=== PATIENT | male | born 1945 | race Caucasian/White ===

== ENCOUNTER 2016-06-17 17:41 | Inpatient (IN) | payer MEDICARE ==
[~2016-06-17] VITALS: Ht 175.3 cm; Wt 96.9 kg
[2016-06-17] MEDS ORDERED: ADVAIR 100/501 DISK INH (18:49)
[2016-06-17] MEDS ORDERED: ALDACTONE100 MG PO (18:49)
[2016-06-17 19:35] LABS: BASOPHILS 0.2 % (0.0-2.0); EOSINOPHILS 0.3 % (0-7); HEMATOCRIT 39.6 % (42.0-54.0); HEMOGLOBIN 12.6 g/dL (13.5-17.5); IMMATURE GRANULOCYTES 0.2 % (0-5); LYMPHOCYTES 8.1 % (15-50); MCH 30.4 pg (26.0-34.0); MCHC 31.8 g/dL (31.0-37.0); MCV 95.4 fL (80.0-100.0); MEAN PLATELET VOLUME 11.3 fL (7.4-10.4); MONOCYTES 3.7 % (2-11); NEUTROPHILS 87.5 % (40-80); PLATELET COUNT 193 10x3/uL (130-400); RBC 4.15 10x6/uL (4.20-6.10); RDW 16.2 % (11.5-14.5); WBC 10.5 10x3/uL (4.8-10.8)
[2016-06-17 20:02] VITALS: BP 94/49
[2016-06-17 20:06] LABS: CALC OSMOLALITY 306 mosm/kg (275-300); CALCIUM 9.6 mg/dL (8.5-10.1); CARBON DIOXIDE 20.6 mmol/L (21.0-32.0); CHLORIDE - SERUM 104 mmol/L (98-107); CKMB 8.2 U/L (0.0-3.6); CREATINE KINASE 597 UL (21-232); GLUCOSE 114 mg/dL (74-106); PRO BNP 156 pg/mL (0-125); SODIUM 136 mmol/L (136-145); TROPONIN-I 0.026 ng/mL (0.000-0.060); UREA NITROGEN 109 mg/dL (7-18); eGFR NON AFRICAN AMERICAN 12 mL/min (90-120)
[2016-06-17 20:08] LABS: POTASSIUM - SERUM 8.5 mmol/L (3.5-5.1)
--- NOTE | 2016-06-17 21:00 | NUR ---
RIGHT HAND IV WITH 22 GA ANGIOCATH STARTED X2 STICKS. PT STEPH WELL. DRESSING ACCORDING TO POLICY. REG INSULIN 10 UNITS GIVEN ALONG WITH D50 ORDERED. AWAITING CALCIUM GLUC IVPB AND BICARB GTT TO ARRIVE FROM PHARMACY.
--- NOTE | 2016-06-17 21:15 | NUR ---
FENG CATH 16 FR 10 CC PLACED WITHOUT DIFFICULTY. DRAINS ADEQ AMOUNT CLEAR YELLOW URINE. STATLOCK ATTACHED TO RIGHT THIGH AND SECURED TO FENG.
[2016-06-17 21:30] VITALS: BP 73/46
--- NOTE | 2016-06-17 21:30 | NUR ---
PT RECIVED O2 VIA NC 3L O2 SAT 98% RR 26 LABORED STATES SOB, BP 78/47 HR 116 SINUS TACK WITH ELEVATED T WAVE. TEMP 97.5. 2129 CONSENTS RECIEVED FOR CVL PLACEMENT 2139 DR KNIGHT AND DR CESAR AT BEDSIDE CVL PLACEMENT ADM WITHOUT DIFFICULTY ORDER FOR DOUBLE DUONEB AND CA+ GLUCONATE TO BE ADM WILL ADM. 2149- FAMILY GIVEN UPDATE 2200 L AC 20 G ADM ON 1 ATTEMPT
--- NOTE | 2016-06-17 21:31 | NUR ---
CALLED REPORT TO ICU NURSE, PT TRANSFER TO BED 2312 VIA BED ACCOMPANIED BY MULTIPLE FAMILY MEMBERS. PT AND FAMILY UPDATED ON POC INTERVENTIONS COMPLETED. PT AND FAMILY VERBALIZED UNDERSTANDING.
[2016-06-17 22:00] VITALS: BP 98/52
[2016-06-17 22:30] VITALS: BP 98/54
[2016-06-17 23:00] VITALS: BP 93/50
--- NOTE | 2016-06-17 23:07 | NUR ---
DIALYSIS AT BEDSIDE
--- NOTE | 2016-06-17 23:34 | NUR ---
ASSESSMENT COMPLETEPER FLOW SHEET. REFER FOR COMPLETE FINDINGS. VSS RESTING AT THIS TIME. WILL CONTINUE TO MONITOR.
[2016-06-18] VITALS (34 sets, daily range): BP systolic 76–121; BP diastolic 40–69; Ht 175.3 cm; Wt 96.9 kg
--- NOTE | 2016-06-18 02:40 | NUR ---
DIALYSIS FINISHED. VSS. NO NEW CHANGES. GIVEN SANWHICH PER REQUEST. DENIES FURTHER NEEDS. WILL CONTINUE TO MONITOR.
--- NOTE | 2016-06-18 03:24 | NUR ---
REASSESSMENT COMPLETE PER FLOW SHEET. VSS. NO NEW CHANGESA T THIS TIME. WILL CONTINUE TO MONITOR.
[2016-06-18 03:26] LABS: BASOPHILS 0.1 % (0.0-2.0); EOSINOPHILS 0.8 % (0-7); HEMATOCRIT 34.5 % (42.0-54.0); HEMOGLOBIN 10.9 g/dL (13.5-17.5); IMMATURE GRANULOCYTES 0.2 % (0-5); LYMPHOCYTES 13.8 % (15-50); MCH 29.8 pg (26.0-34.0); MCHC 31.6 g/dL (31.0-37.0); MCV 94.3 fL (80.0-100.0); MEAN PLATELET VOLUME 11.6 fL (7.4-10.4); NEUTROPHILS 78.1 % (40-80); PLATELET COUNT 194 10x3/uL (130-400); RBC 3.66 10x6/uL (4.20-6.10); RDW 15.6 % (11.5-14.5); WBC 8.8 10x3/uL (4.8-10.8)
[2016-06-18 03:40] LABS: CALCIUM 8.9 mg/dL (8.5-10.1); MAGNESIUM - SERUM 1.6 mg/dL (1.8-2.4); PHOSPHOROUS 3.3 mg/dL (2.5-4.9)
[2016-06-18 03:47] LABS: ANION GAP 11.7 mmol/L (8-16); CARBON DIOXIDE 29.6 mmol/L (21.0-32.0); CREATININE - SERUM 2.5 mg/dL (0.6-1.3); POTASSIUM - SERUM 4.3 mmol/L (3.5-5.1)
--- NOTE | 2016-06-18 07:25 | HP ---
PATIENT: CONNIE MCCRAY MEDICAL RECORD: [id number] ACCOUNT: [id number] LOCATION:[id number] : 43 ADMISSION DATE: 06/17/16 HISTORY AND PHYSICAL EXAMINATION DATE OF ADMISSION: 06/17/2016 CHIEF COMPLAINT: Shortness of breath for the past 2 days, extreme weakness for the past 2 days and loss of appetite. HISTORY OF PRESENT ILLNESS: The patient is a 71-year-old gentleman who states that for the past week, he has become increasingly weak. The patient states he has had increasing shortness of breath with any exertion, he has had inability to stand. The patient presented to the office where he was found to be hypotensive as well as hypoxic, it was felt the patient warranted admission. PAST MEDICAL HISTORY: Significant that he has had asthma in the past, has COPD, has had hyperlipidemia, hypertension, has had dependent edema and has had BPH. PAST SURGICAL HISTORY: The patient has had right shoulder repair with joint replacement, left knee replacement and right inguinal hernia repair. FAMILY HISTORY: Significant for father who of myocardial infarction as well as COPD. SOCIAL HISTORY: The patient is educated through the 10th grade, currently unemployed. He is . 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 ALLERGIES: He has known drug allergies. MEDICATIONS: He has been on Advair Diskus 100 mcg/50 mcg 1 puff b.i.d., albuterol solution 0.08% q.4 hours p.r.n. shortness of breath, allopurinol 300 mg 1 p.o. daily for his gout, he has also been on Lasix 40 mg 1 p.o. b.i.d., lisinopril 20 mg once a day, meloxicam 7.5 mg once a day, omeprazole 20 mg once a day, Mirapex 0.25 p.o. at bedtime, pravastatin 40 mg once a day, spironolactone 100 mg once a day, Flomax 0.4 mg once a day, tramadol 50 mg q.6 hours p.r.n. pain and Ambien 5 mg p.o. at bedtime p.r.n. insomnia. REVIEW OF SYSTEMS: CONSTITUTIONAL: Denies any headaches, seizures, or syncope. The patient has reported increasing weakness. He denies any change in visual or auditory acuity. PULMONARY: He has reported increasing shortness of breath. He has had no cough. He has had no congestion. GASTROINTESTINAL: He has had no chronic nausea, vomiting, melena, or hematochezia. GENITOURINARY: No urgency, frequency, or dysuria. PHYSICAL EXAMINATION: GENERAL: The patient is wheelchair bound, he is unable to stand. Weight is unobtainable at present time VITAL SIGNS: Blood pressure was 68/30, his pulse 104, his O2 sat was 93% and respirations were 18. HEENT: His head is normocephalic, no lesions. Ears: TMs clear. Eyes: Pupils HISTORY AND PHYSICAL [id number] SHAZIA,CONNIE Leblanc are equal, round, reactive to light. His extraocular movements are intact. His nasal cavity, oral cavity and oropharynx clear. NECK: Supple. There is no adenopathy. HEART: Slightly tachycardic. LUNGS: He has decreased breath sounds in all cobb. ABDOMEN: Soft, bowel sounds positive. EXTREMITIES: Lower extremities have no edema. LABORATORY DATA: The patient had a urinalysis, which were unremarkable. He had a CBC with a white count of 10, his hemoglobin and hematocrit were normal. The patient had a chest x-ray showing some borderline cardiomegaly. ASSESSMENT: Shortness of breath, exacerbation of chronic obstructive pulmonary disease, as well as hypotension with history of hypertension, history of dependent edema and hypertension. PLAN: The patient is admitted. We will obtain an EKG as well as a repeat chest x-ray. We will have CPK, CK-MB and troponin. He will be given 500 cc normal saline bolus and start on normal saline at 100 cc an hour, have a CMP as well as CBC on arrival. Also, the patient will be given Lovenox 40 mg subcutaneous q.24 hours. We will continue to evaluate. TRANSINT:[id number] Voice Confirmation ID: [id number] DOCUMENT ID: [id number] BI CHRIS MD at 0725 CC: [id number] DICTATION DATE: 06/17/16 172 SLOT ATTENDANT: 06/17/16 210 ADM IN [id number] [place] [address]
--- NOTE | 2016-06-18 08:03 | OP ---
PATIENT NAME: CONNIE MCCRAY MEDICAL RECORD: [id number] :41 LOCATION:D.[facility] D.2312 ADMISSION DATE:06/17/16 SURGEON: BI CESAR MD DATE OF OPERATION: 06/17/2016 Surgical Procedure Note SURGEON: Bi Cesar MD PREOPERATIVE DIAGNOSES: 1. Life-threatening hyperkalemia. 2. Hypotension. 3. Acute renal failure. POSTOPERATIVE DIAGNOSIS: 1. Life-threatening hyperkalemia. 2. Hypotension. 3. Acute renal failure. PROCEDURE PERFORMED: Ultrasound-guided insertion of a right internal jugular Trialysis catheter. ANESTHESIA: Local. COMPLICATIONS: None. SPECIMENS: None. ESTIMATED BLOOD LOSS: 5 cc. Case was clean. OPERATIVE COURSE: After consent was obtained, the patient was placed in supine position into the ICU bed. The timeout was taken to confirm the correct patient and procedure. The right chest and neck were prepped and draped in typical sterile fashion. A shoulder roll was placed. The patient was placed in the Trendelenburg position. The local anesthetic was administered. The IJ was identified using the ultrasound. Under ultrasound guidance, the right IJ was cannulated, blood was aspirated. The guidewire was placed. The needle was removed. Skin incision was made with 11-blade scalpel. Dilators were then passed through the wire in a standard Seldinger fashion. The Trialysis catheter was then passed over the wire in a standard Seldinger fashion. Catheter was secured to skin with a 3-0 nylon suture and a sterile Tegaderm dressing. All 3 ports were aspirated and flushed. At the end of the case, all needle and instrument counts were correct. No complications occurred. Immediate postoperative x-ray was performed. TRANSINT:[id number] Voice Confirmation ID: [id number] DOCUMENT ID: [id number] OPERATIVE REPORT [id number] SHAZIABI KIM MD at 0803 CC: [id number] DICTATION DATE: 06/17/162209 GEMOLOGIST: 06/17/16 2356 [place] [address]
--- NOTE | 2016-06-18 08:03 | CN ---
PATIENT NAME:CONNIE MCCRAY MEDICAL RECORD: [id number] : 41 LOCATION:[id number] ADMIT DATE: 06/17/16 ACCOUNT: [id number] CONSULTING PHYSICIAN: BI CESAR MD REFERRING PHYSICIAN: BI CHRIS MD DATE OF CONSULTATION: 06/17/2016 Surgical Consultation SURGEON: Bi Cesar MD CHIEF COMPLAINT: Shortness of breath. HISTORY OF PRESENT ILLNESS: This is a 71-year-old gentleman, who states for the past week, has been increasingly weak, lethargic, short of breath with severe dyspnea. He was hypoxic and hypotensive when he saw his primary care physician this morning and was transferred as a direct admission to the hospital. He has subsequently been transferred to the ICU this evening with acute renal failure and life-threatening hyperkalemia. I was consulted for emergency placement of a dialysis catheter. PAST MEDICAL HISTORY: Asthma, COPD, hyperlipidemia, hypertension, dependent edema, and BPH. PAST SURGICAL HISTORY: Right shoulder repair, left knee replacement, and right inguinal hernia repair. FAMILY HISTORY: Significant for father who of myocardial infarction as well COPD. SOCIAL HISTORY: He is . He is unemployed. 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 Denies any history of alcohol. ALLERGIES: No known drug allergies. MEDICATIONS: Advair, albuterol, allopurinol, Lasix, lisinopril, meloxicam, omeprazole, Mirapex, pravastatin, spironolactone, Flomax, tramadol, and Ambien. REVIEW OF SYSTEMS: A 12-point review of system was obtained, pertinent positive and negative as per the HPI. PHYSICAL EXAMINATION: GENERAL: A morbidly obese male, in marked distress. EYES: Extraocular muscles intact. PSYCHIATRIC: He is alert and oriented times 3. EARS, NOSE, AND THROAT: Mucous membranes moist. Poor dentition. CARDIOVASCULAR: Irregular. No murmur. PULMONARY: Decreased breath sounds bilaterally. ABDOMEN: Soft, nontender, and nondistended. SKIN: Warm and dry. EXTREMITIES: He is neurovascularly intact. He has peripheral edema. NEUROLOGIC: He has a GCS of 15 with no focal deficits. LABORATORY DATA: Reviewed. Please see electronic medical record for full list of laboratory values. CONSULT REPORT [id number] CONNIE MCCRAY IMAGING: Chest x-ray from this evening shows atelectasis and pulmonary congestion. Images were personally reviewed. IMPRESSION: A 71-year-old male with shortness of breath, dyspnea on exertion, life-threatening hyperkalemia and acute renal failure. PLAN: Case was discussed with Dr. Yu. We will place an emergent Trialysis ____ per nephrology. Chest x-ray to confirm line placement. TRANSINT:[id number] Voice Confirmation ID: [id number] DOCUMENT ID: [id number] BI CESAR MD at 0803 CC: [id number] DICTATION DATE: 06/17/162207 MEDICAL CODING TECHNICIAN: 06/18/16 0017 ADM IN [facility] [address] [id number]
--- NOTE | 2016-06-18 09:16 | NUR ---
Is the patient Alert and Oriented? Yes 0 * How many steps to enter\exit or inside your home? 2 0 * PCP DR. CHRIS 0 * Pharmacy [facility] 0 * Preadmission Environment Home with Family 0 * ADLs Independent 0 * Equipment [employer]ane [employer] Rolling Walker 0 * Other Equipment PATIENT HAS O2 AT HOME HE STATES HE USES NEEDED. HE DOES NOT RECALL THE NAME OF THE PROVIDER HE SAY THEY ARE ON [address]. 0 * List name and contact numbers for known caregivers / representatives who currently or will assist patient after discharge: SPOUSE: DK (H) [phone] (C) [phone] 0 * Community resources currently utilized None 0 * Additional services required to return to the preadmission environment? No 0 * Can the patient safely return to the preadmission environment? Yes 0 * Has this patient been hospitalized within the prior 30 days at any hospital? PATIENT IS AWAKE AND ALERT. HE STATES HE LIVES AT HOME WITH HIS , DK. HE IS INDEPENDENT IN HIS ADL'S. PATIENT STATES DK WILL BE AVAILABLE TO DRIVE HIM HOME AT DISCHARGE. PATIENT PCP IS DR. CHRIS. HE GETS HIS MEDS FROM [facility]. HE HAS A WALKER AND CANE. PATIENT STATES HE USES O2 AT HOME NEEDED. HE DOES NOT RECALL THE NAME OF THE COMPANY THAT PROVIDES IT. HE SAID THEY ARE ON [address]. PATIENT HAD HOME HEALTH 4-5 YRS AGO BUT DOES NOT RECALL THE NAME OF THE AGENCY. THERE ARE 2 STEPS TO ENTER HIS HOME. NO NEEDS AT THIS TIME.
[2016-06-18 13:16] LABS: % SATURATION 28 % (15-55); IRON 77 ug/dl (35-150); TOTAL IRON BIND CAPACITY 275 ug/dl (260-445); UNSAT IRON BIND CAPACITY 198 ug/dl (150-375)
--- NOTE | 2016-06-18 13:59 | EC ---
PATIENT:CONNIE MCCRAY DATE OF SERVICE: 06/17/16 SEX: M MEDICAL RECORD: [id number] DATE OF : 41 LOCATION:[facility] D231 AGE OF PATIENT: 71 ADMISSION DATE: 06/17/16 REFERRING PHYSICIAN: INTERPRETING PHYSICIAN: LISANDRO GLORIA MD ECHOCARDIOGRAM REPORT ECHO CHARGES 4 ECHO COMPLETE CLINICAL DIAGNOSIS: SOB,WEAKNESS,HYPPOTENSION HX OF RENAL/HTN ECHOCARDIOGRAPHIC MEASUREMENTS (adult normal given) AC root (d.<3.7cm) 3.6 LV Septum d (<1.2 cm> 1.5 Valve Excursion 1.5 LV Septum (systole) 1.7 Left Atria (s.<4.0cm> 3.9 LVPW d(<1.2cm) 1.4 RV (d.<2.3cm) 4.3 LVPW (sytole) 1.6 LV diastole(<5.6CM) 6.3 MV E-F(>70mm/sec) LV systole 4.5 LVOT Diameter 1.8 MV exc.(>10mm) 1.4 Est.ejection fraction (50-75%) Pericardial Effusion N DOPPLER: LVIT A 135 E 74.0 LA RVSP 26 LVOT 106 AOP1/2T Asc. Ao 166 RVOT 110 RA PA 175 AV Gradient Peak 11.07 AV Mean 6.02 AV Area 1.8 MV Gradient Peak 10.10 MV Mean 3.06 MV Area COMMENTS: Smelter Charger: Oni RANDOLPH Routing Clerk:Cesar Gloria TAPE# PACS DATE OF SERVICE: 06/18/2016 Echocardiogram FINDINGS: 1. Left ventricular chamber size is upper limits of normal. Left ventricular systolic function is preserved. Overall ejection fraction 55% to 60%. 2. Left atrium is within normal limits at 3.9 cm. Right atrium and right ventricular chamber sizes are mildly dilated. 3. Valvular structures have normal structure and motion. ECHOCARDIOGRAM REPORT [id number] CONNIE MCCRAY 4. Doppler interrogation reveals mild mitral regurgitation, mild tricuspid regurgitation, no other valvular insufficiency or stenosis and pulmonary systolic pressure is normal, estimated 26 mmHg. 5. No evidence of pericardial effusion or left ventricular thrombus. TRANSINT:[id number] Voice Confirmation ID: [id number] DOCUMENT ID: [id number] LISANDRO GLORIA MD at 1359 CC: [id number] DICTATION DATE: 06/18/16 1243 ROTARY DRIER: 06/18/16 1305 ADM IN [facility] [address] [id number]
[2016-06-18 15:13] LABS: PROTEIN - URINE 108.4 mg/dL (0.0-11.9)
[2016-06-18 15:24] LABS: APPEARANCE CLOUDY (CLEAR); BILIRUBIN NEGATIVE (NEGATIVE); COLOR YELLOW (YELLOW); GLUCOSE 50 mg/dL (NEGATIVE); KETONE NEGATIVE (NEGATIVE); LEUKOCYTE ESTERASE 1+ (NEGATIVE); NITRITE NEGATIVE (NEGATIVE); PROTEIN 2+ mg/dL (NEGATIVE); SPECIFIC GRAVITY 1.015 (1.005-1.020); UROBILINOGEN NORMAL (NORMAL)
[2016-06-18 15:30] LABS: WHITE CELLS - URINE 0-5 /hpf (0-5)
[2016-06-18 15:32] LABS: BACTERIA FEW /hpf (NONE SEEN); EPITHELIAL CELLS 0-5 /hpf (0-5)
--- NOTE | 2016-06-18 19:29 | NUR ---
REPORT RECIEVED. ASSESSMENT COMPLETE PER FLOW SHEET. VSS. PT GIVEN 2100 MEDS PER REQUEST WITH PM SNACK ATE 100% DENIES FURTHER NEEDS. LIGHTS OUT WILL CONTINUE TO MONITOR.
--- NOTE | 2016-06-18 21:10 | NUR ---
FAMILY AT BEDSIDE. NO NEW CHANGES. GIVEN UPDATE. VSS. DENIES NEEDS. WILL CONTINUE TO MONITOR.
[2016-06-18] MEDS ORDERED: ZYLOPRIM300 MG PO (22:37)
[2016-06-18] MEDS ORDERED: PROVENTIL/2.5 MG/3 M INH (22:37)
[2016-06-18] MEDS ORDERED: CINNAMON500 MG PO (22:37)
[2016-06-18] MEDS ORDERED: PROSCAR5 MG PO (22:38)
[2016-06-18] MEDS ORDERED: FISH OIL 1,0001 CA1 PO (22:38)
[2016-06-18] MEDS ORDERED: VIC-FORTE CAPSUL1 MG PO (22:38)
[2016-06-18] MEDS ORDERED: FLUTICASONE PRO16 GM NASAL (22:38)
[2016-06-18] MEDS ORDERED: LASIX40 MG PO (22:39)
[2016-06-18] MEDS ORDERED: VITAMIN D2000 UNIT PO (22:39)
[2016-06-18] MEDS ORDERED: PRINIVIL20 MG PO (22:39)
[2016-06-18] MEDS ORDERED: OMEPRAZOLE20 M1 PO (22:40)
[2016-06-18] MEDS ORDERED: MOBIC7.5 MG PO (22:40)
[2016-06-18] MEDS ORDERED: MIRAPEX0.25 MG PO (22:41)
[2016-06-18] MEDS ORDERED: PRAVACHOL40 MG PO (22:41)
[2016-06-18] MEDS ORDERED: ULTRAM50 MG PO (22:42)
[2016-06-18] MEDS ORDERED: ALDACTONE100 MG PO (22:42)
[2016-06-18] MEDS ORDERED: FLOMAX0.4 MG PO (22:42)
[2016-06-18] MEDS ORDERED: VITAMIN B-1100 M1 PO (22:45)
[2016-06-18] MEDS ORDERED: VENTOLIN HFA18 GM INH (22:45)
--- NOTE | 2016-06-18 23:23 | NUR ---
REASSESSMENT COMPELTE PER FLOW SHEET. VSS NO NEW CHANGES. WILL CONTINUE TO MONITOR.
[2016-06-19] VITALS (24 sets, daily range): BP systolic 92–143; BP diastolic 51–100
--- NOTE | 2016-06-19 01:19 | NUR ---
REPOSITIONED UP IN BED ON L SIDE. DENIES FURTHER NEEDS. NO NEW CHNGES
--- NOTE | 2016-06-19 03:24 | NUR ---
REASSESSMENT COMPELTE PER FLOW SHEET. VSS. NO NEW CHANGES WILL CONTINUE TO MONIOR.
[2016-06-19 03:45] LABS: BASOPHILS 0.3 % (0.0-2.0); EOSINOPHILS 3.2 % (0-7); HEMATOCRIT 33.6 % (42.0-54.0); HEMOGLOBIN 10.5 g/dL (13.5-17.5); IMMATURE GRANULOCYTES 0.1 % (0-5); LYMPHOCYTES 23.5 % (15-50); MCH 29.9 pg (26.0-34.0); MCHC 31.3 g/dL (31.0-37.0); MCV 95.7 fL (80.0-100.0); MEAN PLATELET VOLUME 11.4 fL (7.4-10.4); MONOCYTES 9.7 % (2-11); NEUTROPHILS 63.2 % (40-80); PLATELET COUNT 165 10x3/uL (130-400); RBC 3.51 10x6/uL (4.20-6.10); RDW 15.8 % (11.5-14.5); WBC 7.7 10x3/uL (4.8-10.8)
[2016-06-19 03:59] LABS: ANION GAP 4.6 mmol/L (8-16); CALCIUM 8.7 mg/dL (8.5-10.1); CREATININE - SERUM 2.2 mg/dL (0.6-1.3); POTASSIUM - SERUM 4.5 mmol/L (3.5-5.1)
[2016-06-19 04:03] LABS: CARBON DIOXIDE 38.9 mmol/L (21.0-32.0)
--- NOTE | 2016-06-19 19:00 | NUR ---
1899: Pt rec'd resting HOB 30 degrees with eyes open. Pupils ASH+ bilat. Pt LOCx3. Pt assisted to reposition in bed at this time. Pt S1S2 regular SR on CM. Right jugular Trialysis cath intact with no IVF connected. Saline locked nurse port at this time. Pt has bilateral PIVs intact all saline locked as well. PT breathing 022LNC with [id number] with SPO2 94% Pt denies SOB or dyspnea at this time. Encouraged DBC. Lungs with decreased bases bilaterally with auscultation. ABD soft NT BS active x4. Pt states he had some diarrhea today, but has subsided since. Denies N+V. Gilbert to gravity with >30 cc/hr yellow UOP. Provided water as per pt request.
--- NOTE | 2016-06-19 21:00 | NUR ---
2100: Family here at bedside. Discussed patients admission and plan of care at length. Family and patient verbalized understanding.
[2016-06-19 21:07] LABS: SPE - ALBUMIN 3.1 g/dL (2.9-4.4); SPE - ALPHA-1 GLOBULIN 0.2 g/dL (0.0-0.4); SPE - ALPHA-2 GLOBULIN 0.9 g/dL (0.4-1.0); SPE - BETA GLOBULIN 0.9 g/dL (0.7-1.3); SPE - M-SPIKE Not Observed g/dL (Not Observed); SPE - TOTAL PROTEIN 6.1 g/dL (6.0-8.5)
[2016-06-20] VITALS (23 sets, daily range): BP systolic 107–153; BP diastolic 59–89
--- NOTE | 2016-06-20 | NUR ---
0000: Pt c/o dry eyes. Saline gtts placed bilateral eyes and eyes wiped with warm wash cloth. Pt repositioned for comfort. Pt remains SR on CM 80's. Pt 022LNC RR20X wtih SPO2 94%.
--- NOTE | 2016-06-20 03:15 | NUR ---
0315: Pt resting with eyes closed at this time. Pt remains SR on CM. No change in IVF/UOP.
[2016-06-20 04:51] LABS: BASOPHILS 0.3 % (0.0-2.0); EOSINOPHILS 4.2 % (0-7); HEMATOCRIT 36.9 % (42.0-54.0); HEMOGLOBIN 11.2 g/dL (13.5-17.5); IMMATURE GRANULOCYTES 0.2 % (0-5); LYMPHOCYTES 22.4 % (15-50); MCH 29.6 pg (26.0-34.0); MCHC 30.4 g/dL (31.0-37.0); MCV 97.6 fL (80.0-100.0); MONOCYTES 7.9 % (2-11); PLATELET COUNT 164 10x3/uL (130-400); RBC 3.78 10x6/uL (4.20-6.10); RDW 15.7 % (11.5-14.5)
[2016-06-20 04:53] LABS: WBC 10.2 10x3/uL (4.8-10.8)
--- NOTE | 2016-06-20 05:00 | NUR ---
0500: Pt placed on bedpan at this time. Pt passing gas, but no stool. [place] pad changed and pt repositioned for comfort.
[2016-06-20 05:19] LABS: ANION GAP 9.4 mmol/L (8-16); CALCIUM 9.5 mg/dL (8.5-10.1); CREATININE - SERUM 1.8 mg/dL (0.6-1.3); MAGNESIUM - SERUM 1.5 mg/dL (1.8-2.4); PHOSPHOROUS 2.8 mg/dL (2.5-4.9); POTASSIUM - SERUM 4.4 mmol/L (3.5-5.1)
--- NOTE | 2016-06-20 06:00 | NUR ---
0600: Pt c/o "twitching" of right leg. Pt states he was on some medicine for RLS prior to admission. Family in room and discussed at length. Pt with no other c/o at this time.
--- NOTE | 2016-06-20 07:00 | NUR ---
REC'D CARE OF PT. A&O X3.
--- NOTE | 2016-06-20 07:30 | NUR ---
REPOSITIONS SELF IN BED.
--- NOTE | 2016-06-20 08:30 | NUR ---
C/O DRY EYES. SPOKE WITH CL WITH RENAL GROUP. SHE ORDERED.
--- NOTE | 2016-06-20 09:00 | NUR ---
OOB TO CHAIR WITH KIKE SHARMA
--- NOTE | 2016-06-20 09:09 | NUR ---
FAMILY AT BEDSIDE. UPDATED.
--- NOTE | 2016-06-20 10:26 | NUR ---
STILL NO EYE DROPS. I CALLED PHARMACY AND REQUESTED AGAIN.
--- NOTE | 2016-06-20 10:27 | NUR ---
BACK TO BED VIA KIKE PT, CM=ST RATE OF 104. DENIES NEEDS OTHER THAN EYE DROPS.
--- NOTE | 2016-06-20 10:33 | NUR ---
REASSESSMENT COMPLETED PER FLOW SHEET. NO ACUTE CHANGES.
--- NOTE | 2016-06-20 11:35 | NUR ---
RESTING WITH EYES CLOSED. RESPONSE TO VERBAL STIMULI. DENIES NEEDS.
--- NOTE | 2016-06-20 13:30 | NUR ---
RESTING WITH EYES CLOSED. VSS.
--- NOTE | 2016-06-20 16:58 | NUR ---
REPOSITIONS SELF IN BED. DINNER TRAY SERVED.
--- NOTE | 2016-06-20 19:30 | NUR ---
1930: Pt c/o dry eyes. Applied eye gtts to eyes and assited with warm wash cloth as per pt requet to clean eyes. Left eyes appears > dry than Right. Left eye is red and small amount of yellow/white discharge is seen in corner of eye.
--- NOTE | 2016-06-20 20:15 | NUR ---
2015: Pt SPO2 decreased while resting 88%. 022LNC placed at this time and encouraged DBC. Pt SPO2 immediatley increased to 95% on CM with proper w/f and tracking.
--- NOTE | 2016-06-20 21:15 | NUR ---
2115: Family here at bedside. Update provided. Reviewed medications with patient. No difficulty with swallow.
--- NOTE | 2016-06-20 23:30 | NUR ---
2330: Readjusted pt room temp per request. Pt with no other c/o at this time. Pt remains SR 83 with SPO2 95% with 022LNC.
[2016-06-21] VITALS (16 sets, daily range): BP systolic 108–167; BP diastolic 56–90
--- NOTE | 2016-06-21 02:45 | NUR ---
0245: Pt resting with eyes closed at this time. Remains SR on CM. SPO2 95% with 022LNC.
--- NOTE | 2016-06-21 03:40 | NUR ---
0340: Pt with large solid BM at this time. Linen change done. Pt remains SR 80-90 bpm. Pt asked to take 02 off at this time. 02 removed and pt SPo2 remains 95-97%. Encouraged DBC and alarms remain on.
[2016-06-21 04:39] LABS: BASOPHILS 0.3 % (0.0-2.0); HEMATOCRIT 36.1 % (42.0-54.0); HEMOGLOBIN 11.1 g/dL (13.5-17.5); IMMATURE GRANULOCYTES 0.2 % (0-5); LYMPHOCYTES 22.3 % (15-50); MCH 29.8 pg (26.0-34.0); MCHC 30.7 g/dL (31.0-37.0); MEAN PLATELET VOLUME 11.1 fL (7.4-10.4); MONOCYTES 6.8 % (2-11); NEUTROPHILS 64.4 % (40-80); PLATELET COUNT 161 10x3/uL (130-400); RBC 3.72 10x6/uL (4.20-6.10); RDW 15.7 % (11.5-14.5); WBC 11.1 10x3/uL (4.8-10.8)
[2016-06-21 04:50] LABS: ANION GAP 10.9 mmol/L (8-16); CALCIUM 9.1 mg/dL (8.5-10.1); CARBON DIOXIDE 30.1 mmol/L (21.0-32.0); CREATININE - SERUM 1.6 mg/dL (0.6-1.3)
--- NOTE | 2016-06-21 06:00 | NUR ---
0600: Pt resting with eyes closed at this time. Pt remains SR on CM. Pt remains SPO2 94% with RR20x on room air.
--- NOTE | 2016-06-21 07:00 | NUR ---
REC'D CARE OF PT. A&O X3.
--- NOTE | 2016-06-21 07:30 | NUR ---
OOB TO CHAIR.
--- NOTE | 2016-06-21 07:45 | NUR ---
INITIAL ASSESSMENT COMPLETED.
--- NOTE | 2016-06-21 09:00 | NUR ---
FAMILY AT BEDSIDE. UPDATED.
--- NOTE | 2016-06-21 09:42 | NUR ---
PIV DC'D X2 WITH TIPS INTACT.
--- NOTE | 2016-06-21 10:40 | NUR ---
BACK TO BED VIA KIKE SHARMA
--- NOTE | 2016-06-21 10:48 | NUR ---
REASSESSMENT COMPLETED PER FLOW SHEET. NO ACUTE CHANGES.
--- NOTE | 2016-06-21 12:00 | NUR ---
FAMILY AT BEDSIDE. UPDATED.
--- NOTE | 2016-06-21 13:28 | NUR ---
NO ACUTE CHANGES. RESTING WITH EYES CLOSED. VSS. WAITING ON A BED TO TRANSFER PT.
--- NOTE | 2016-06-21 14:48 | NUR ---
TRANSFERING TO ROOM 2135 VIA .
--- NOTE | 2016-06-21 15:04 | NUR ---
RECIEVED FROM ICU. ALERT ORIENTED. V/S STABLE. CALL LIGHT IN REAVH WITH SR UP. RIGHT NECK WAS A TRYLISIS. SCDS ON.FENG CATH PATENT. WILL MONITOR
--- NOTE | 2016-06-21 17:39 | NUR ---
HOB UP. DENIES ANY NEEDS. CALL LIGHT IN REACH WITH SR UP.VISITOR AT BEDSIDE. FENG UNCLAMPED WITH GOOD URINE RETURN. WILL MONITOR
--- NOTE | 2016-06-21 17:44 | NUR ---
LYING QUIETLY. NO FUTHER C/O NAUSES. NO C/O PAIN. FAMILY AT BEDSIDE. TELEMERTY SHOWS SR. WILL MONITOR
--- NOTE | 2016-06-21 19:56 | NUR ---
RESUMED CARE OF PT, LYING IN BED RESPIRATIONS EVEN AND UNLABORED ON ROOM AIR. RIGHT IJ TRIALYSIS SALINE LOCKED. FENG TO GRAVITY AND SCDS ON. REQUESTS EYE DROPS. CALL LIGHT IN REACH. WILL CONTINUE TO MONITOR. SEE NURSE ASSESSMENT.
[2016-06-22 00:30] VITALS: BP 144/94
--- NOTE | 2016-06-22 01:39 | NUR ---
MIRAPEX AND TRAMADOL GIVEN PER PT REQUEST. CALL LIGHT IN REACH. WILL CONTINUE TO MONITOR.
[2016-06-22 04:30] VITALS: BP 129/76
--- NOTE | 2016-06-22 04:52 | NUR ---
DIRECTOR OF HEALTH CARE MARKETING AT BEDSIDE TO OBTAIN VITALS, CALL LIHGT IN REACH. WILL CONTINUE WITH PLAN CARE
[2016-06-22 05:45] LABS: BASOPHILS 0.3 % (0.0-2.0); EOSINOPHILS 4.6 % (0-7); HEMATOCRIT 35.9 % (42.0-54.0); HEMOGLOBIN 11.1 g/dL (13.5-17.5); IMMATURE GRANULOCYTES 0.3 % (0-5); LYMPHOCYTES 22.8 % (15-50); MCH 29.8 pg (26.0-34.0); MCHC 30.9 g/dL (31.0-37.0); MCV 96.5 fL (80.0-100.0); MEAN PLATELET VOLUME 10.9 fL (7.4-10.4); MONOCYTES 6.7 % (2-11); NEUTROPHILS 65.3 % (40-80); PLATELET COUNT 177 10x3/uL (130-400); RBC 3.72 10x6/uL (4.20-6.10); RDW 15.3 % (11.5-14.5); WBC 11.7 10x3/uL (4.8-10.8)
[2016-06-22 06:12] LABS: ANION GAP 12.6 mmol/L (8-16); CALCIUM 9.2 mg/dL (8.5-10.1); CARBON DIOXIDE 28.7 mmol/L (21.0-32.0); CREATININE - SERUM 1.5 mg/dL (0.6-1.3); POTASSIUM - SERUM 4.3 mmol/L (3.5-5.1)
--- NOTE | 2016-06-22 06:41 | NUR ---
NO CHANGES FROM PREVIOUS ASSESSMENT, CALL LIGHT IN REACH.
--- NOTE | 2016-06-22 07:30 | NUR ---
ASSESSMENT DONE. PT LAYING IN BED A/O. ASSISTED PT WITH MOVING UP IN BED. PT WITH FENG TO BED DRAINAGE. TO BE D/C TODAY. RIGHT IG WITH SWAP CAPS IN PLACE, AND DRESSING INTACT. DENIES NEEDS AT THIS TIME. CALL LIGHT WITH IN REACH. WILL CONT. TO MONITOR.
[2016-06-22 08:03] VITALS: BP 137/79
--- NOTE | 2016-06-22 08:54 | NUR ---
FENG CATH D/C'D. PT TOLERATED WELL. PT GIVEN URINAL. WILL CONT. TO MONITOR
--- NOTE | 2016-06-22 09:52 | NUR ---
RESP UL ON . UP ON BSC WITH CALL LIGHT IN REACH. WILL CONT. PLAN OF CARE.
--- NOTE | 2016-06-22 11:57 | NUR ---
PT SITTING UP IN CHAIR AT BEDSIDE. A/O. SPOUSE IN ROOM. DENIES NEEDS AT THIS TIME. CALL LIGHT WITH IN REACH. WILL CONT. TO MONITOR.
[2016-06-22 12:19] VITALS: BP 130/72
--- NOTE | 2016-06-22 13:08 | NUR ---
Nutrition follow-up: Diet: Renal PO intake ~75% of meals labs reviewed +BM Wt: 271# PO intake is good at this time. RDN following.
--- NOTE | 2016-06-22 15:21 | NUR ---
PT RESTING. EYES CLOSED. RESP EVEN AND UNLABORED. APPEARS COMFORTABLE. SPOUSE AT BEDSIDE. NO DISTRESS NOTED. CALL LIGHT WITH IN REACH. WILL CONT. TO MONITOR. URINAL SITTING NEXT TO BED WITH APPROX 250ML OF DARK YELLOW URINE IN IT. NURSE TO EMPTY.
--- NOTE | 2016-06-22 17:40 | NUR ---
PT SITTING UP IN BED WATCHING TV. A/O. SPOUSE AT BEDSIDE. CALL LIGHT WITH IN REACH. DENIES NEEDS AT THIS TIME. CALL LIGHT WITH IN REACH. WILL CONT. TO MONITOR.
--- NOTE | 2016-06-22 19:30 | NUR ---
ASSESSMENT COMPLETE, DENIES NEEDS AT THIS TIME. VISITING WITH DAUGHTER AT BEDSIDE. RT IJ TRIAYLSIS INTACT. ALERT AND ORIENTED BILAT SCDS REMAIN OFF. O2 @ 2L NC NOT IN USE AT THIS TIME. STATES"I WEAR IT AT NIGHT" RESP UNLAB WITH NO S/S OF SOB NOTED. USES URINAL W/O DIFF. HOB UP SR UP X2, C/L IN REACH. CONTINUE TO MONITOR.
[2016-06-23 06:23] LABS: BASOPHILS 0.3 % (0.0-2.0); EOSINOPHILS 5.8 % (0-7); HEMATOCRIT 35.3 % (42.0-54.0); IMMATURE GRANULOCYTES 0.3 % (0-5); MCH 30.1 pg (26.0-34.0); MCHC 31.2 g/dL (31.0-37.0); MCV 96.7 fL (80.0-100.0); MONOCYTES 6.9 % (2-11); NEUTROPHILS 65.7 % (40-80); PLATELET COUNT 178 10x3/uL (130-400); RBC 3.65 10x6/uL (4.20-6.10); RDW 15.5 % (11.5-14.5); WBC 10.4 10x3/uL (4.8-10.8)
[2016-06-23 06:32] LABS: CALCIUM 9.2 mg/dL (8.5-10.1); CARBON DIOXIDE 29.5 mmol/L (21.0-32.0); CREATININE - SERUM 1.6 mg/dL (0.6-1.3); POTASSIUM - SERUM 4.5 mmol/L (3.5-5.1)
[2016-06-23] MEDS ORDERED: LISINOPRIL5 MG PO (07:02)
[2016-06-23] MEDS ORDERED: CILOXAN5 ML EACH EYE (07:05)
[2016-06-23] MEDS ORDERED: VISINE15 ML EACH EYE (07:06)
[2016-06-23] MEDS ORDERED: CIPRO500 MG PO (07:07)
--- NOTE | 2016-06-23 08:01 | NUR ---
PT SITTING UP IN BED WITH HOB ELEVATED. A/O. WATCHING TV. PT TO BE D/C TODAY. PT STATES HE IS COMFORTABLE WITH THAT. DENIES NEEDS AT THIS TIME. CALL LIGHT WITH IN REACH. WILL CONT. TO MONITOR.
--- NOTE | 2016-06-23 08:59 | NUR ---
Patient Name: CONNIE MCCRAY Admission Status: Elective Accout number: [id number] Admission Date: 06-17-2016 : 1945 Admission Diagnosis:HYPOTENSION, UNSPECIFIED Attending: LOU Current LOS: 6 Anticipated DC Date: 06-23-2016 Planned Disposition: Home Primary Insurance: [facility] Discharge Planning Comments: CM MET WITH PT AND SPOUSE IN ROOM TO DISCUSS DISCHARGE NEEDS AND PLANNING. CM DISCUSSED AVAILABILITY OF HOME HEALTH, REHAB SERVICES AND MEDICAL EQUIPMENT. PT DENIES DISCHARGE NEEDS. SPOUSE TO TRANSPORT HOME AT DISCHARGE. CM DISCUSSED HOW TO ACCESS HOME HEALTH THROUGH PRIMARY CARE DOCTORS OFFICE AFTER DISCHARGE HOME IF NEEDED; PT AND SPOUSE REPORTED UNDERSTANDING. IMPORTANT MESSAGE FROM MEDICARE PROVIDED AND EXPLAINED. Breeder Hen Service Technician: Aamir Gu
--- NOTE | 2016-06-23 09:51 | NUR ---
RESP UL ON . CALL LIGHT IN REACH. WILL CONT. PLAN OF CARE.
--- NOTE | 2016-06-23 10:57 | NUR ---
ORDER RECEIVED FOR DISCHARGE AND TO DC TRIALYSIS. SITE CLEAN AND DRY WITH NO SIGNS OF BLEEDING OR EDEMA. DRESSING REMOVED WITH BIOPATCH. SITE CLEANED WITH BETADINE. SUTURES X3 REMOVED. CATH REMOVED WITH TIP INTACT AND NO SIGNS OF INFECTION. PRESSURE HELD FOR 5 MINUTES. NO BLEEDING NOTED. PRESSURE DRESSING APPLIED. INSTRUCTIONS TO PATIEINT AND FAMILY TO LOOK FOR BLEEDING, EDEMA AND SIGNS OF INFECTION. ALSO INSTRUCTED PATIENT TO RAISE HOB AND REMAIN IN THAT POSITION FOR 5 MINUTES, THEN PROGRESS TO DANGLING ON BEDSIDE FOR 5. BOTH PATIENT AND FAMILY VEREBALIZES UNDERSTANDING.
--- NOTE | 2016-06-23 11:45 | NUR ---
D/C INSTRUCTIONS GIVEN TO PT AND SPOUSE. UNDERSTANDING VERBALIZED. PT IS GOING TO EAT LUNCH BEFORE GOING HOME. COPY OF PT'S D/C INTRUCTIONS GIVEN TO SPOUSE. ALSO, PT'S EYE DROPS GIVEN TO PT TO TAKE HOME. PT'S SPOUSE PACKED ALL BELONGING.
--- NOTE | 2016-06-23 12:54 | NUR ---
PT D/C HOME/SELF CARE. DRESSING TO RIGHT NECK CLEAN DRY AND INTACT. NO S/S OF BLEEDING. PT TAKING OUT IN W/C TO PRIVATE VEHICLE.
--- NOTE | 2016-09-08 06:55 | DS ---
PATIENT:CONNIE MCCRAY :41 MEDICAL RECORD: [id number] DISCHARGE SUMMARY ADMISSION DATE: 06/17/16 DISCHARGE DATE: 06/23/16 DATE OF ADMISSION: 06/17/2016 DATE OF DISCHARGE: 06/23/2016 CONDITION ON DISCHARGE: Stable. ADMITTING DIAGNOSES: Shortness of breath, exacerbation of chronic obstructive pulmonary disease, history of hypotension, history of hypertension, and history of dependent edema. DISCHARGE DIAGNOSES: Hypotension, hyperkalemia, acute renal failure, tubular necrosis, chronic obstructive pulmonary disease exacerbation, hyperlipidemia, hypertension, chronic kidney disease, gout, and benign prostatic hypertrophy. HOSPITAL COURSE: Mr. Mccray is a 71-year-old gentleman, who had presented complaining of shortness of breath 2 days, strain and fatigue for the past couple of days and decrease in appetite. PHYSICAL EXAMINATION: GENERAL: He was in a wheelchair. He was unable to stand. His weight was unobtainable at the present time. VITAL SIGNS: His blood pressure 68/30, his pulse 104. His O2 sat was 93%, and respirations 18. HEENT: Unremarkable. NECK: Supple. There is no adenopathy. HEART: Had a regular rhythm. No murmurs, gallops or rubs. LUNGS: Clears. The patient was admitted. EKG was obtained as well as chest x-ray, cardiac enzymes. He was given 500 cc of normal saline bolus. Placed on Lovenox for DVT precautions. The patient was seen in consultation by nephrology. He had an echocardiogram by Dr. Gloria. The echocardiogram revealed left ventricular size to be within upper limits and normal. He had an ejection fraction of 55% to 60%. Left atrium was normal. He had mild mitral regurgitation, mild tricuspid regurgitation, no other valvular insufficiency or stenosis. The pulmonary systolic pressure was normal. No evidence of pericardial effusion or ventricular thrombus. The patient did respond to IV hydration. He was seen in consultation by Dr. Bi Key as well, who proceeded with an ultrasound-guided insertion of right internal jugular Trialysis catheter. The patient did undergo dialysis. Over the coming days, the patient's condition slowly began to improve. The patient's blood pressure had returned to a normal blood pressure as well on the . The patient was stable. It was felt that he could be discharged. His white count was 10.4, his hemoglobin was 11, hematocrit 35.3, and his platelets were 178. He had a sodium 136, potassium 4.5, chloride 100, CO2 is 29.5, BUN was 28, and creatinine was 1.6. The patient was therefore discharged home. He was discharged on lisinopril 5 mg once a day, Visine 1 drop in each eye p.r.n. dry eyes, Cipro 500 mg p.o. q.12 hours. The patient had continued on his ____ Advair Diskus 100/50 one puff b.i.d., multivitamin 1 p.o. q. day, Proscar 5 mg 1 p.o. q. day, fish oil 1 p.o. q. day, fluticasone 1 spray in each naris DISCHARGE SUMMARY REPORT [id number] CONNIE MCCRAY b.i.d., vitamin D3 of 2000 international units once a day, omeprazole 20 mg 1 p.o. q. day, pravastatin 40 mg once a day, Flomax 0.4 mg once a day, tramadol 50 mg q.6 hours p.r.n. for severe pain, Ventolin HFA 90 mcg 2 puffs q.4 hours p.r.n. for shortness of breath, B12 of 1000 mg p.o. q. day. His ____ had been stopped as well as his Lasix, lisinopril 20 and meloxicam. DIET: The patient was to be on a renal diet. Also, a 50 ounce daily oral fluid restriction. He would be on O2 at 2 liters. He would follow up with me in 1 week. TRANSINT:[id number] Voice Confirmation ID: [id number] DOCUMENT ID: [id number] BI CHRIS MD at 0655 CC: [id number] DICTATION DATE: 09/06/161106 CITY SUPERINTENDENT OF SCHOOLS: 09/06/16 1708 DIS IN 06/23/16 [address] [place] [address]
== END 2016-06-23 12:55 | disposition home or self-care (01) | DRG 640 ==
LOC: D.SDCHOLD 17:41 → D.M2 18:35 → D.ICU 18:35 → D.M2 06-21 14:57
PROVIDERS: Family Medicine; Internal Medicine Nephrology; ADMIT Family Medicine
PROC: 05HM33Z Insertion of Infusion Device into Right Internal Jugular Vein, Percutaneous Approach (ICD-10-PCS; principal; 2016-06-17)
PROC: B543ZZA Ultrasonography of Right Jugular Veins, Guidance (ICD-10-PCS; 2016-06-17)
PROC: 0T9B70Z Drainage of Bladder with Drainage Device, Via Natural or Artificial Opening (ICD-10-PCS; 2016-06-17)
PROC: 5A1D60Z (ICD-10-PCS; 2016-06-17)
DX: E87.5 Hyperkalemia (principal); N17.0 Acute kidney failure with tubular necrosis; J44.1 Chronic obstructive pulmonary disease with (acute) exacerbation; N39.0 Urinary tract infection, site not specified; J44.9 Chronic obstructive pulmonary disease, unspecified; I95.9 Hypotension, unspecified; E78.5 Hyperlipidemia, unspecified; I12.9 Hypertensive chronic kidney disease with stage 1 through stage 4 chronic kidney disease, or unspecified chronic kidney disease; N18.9 Chronic kidney disease, unspecified; D64.9 Anemia, unspecified; B96.89 Other specified bacterial agents as the cause of diseases classified elsewhere; H10.9 Unspecified conjunctivitis; M10.9 Gout, unspecified; N40.0 Benign prostatic hyperplasia without lower urinary tract symptoms; Z99.3 Dependence on wheelchair

== ENCOUNTER 2016-06-25 10:22 | Inpatient (IN) | payer MEDICARE ==
[~2016-06-25] VITALS: Ht 175.3 cm; Wt 116.9 kg
[~2016-06-25 10:22] MED LIST: ADVAIR 100/501 DISK INH; ALDACTONE100 MG PO; CILOXAN5 ML EACH EYE; CINNAMON500 MG PO; CIPRO500 MG PO; FISH OIL 1,0001 CA1 PO; FLOMAX0.4 MG PO; FLUTICASONE PRO16 GM NASAL; LASIX40 MG PO; LISINOPRIL5 MG PO; MIRAPEX0.25 MG PO; MOBIC7.5 MG PO; OMEPRAZOLE20 M1 PO; PRAVACHOL40 MG PO; PRINIVIL20 MG PO; PROSCAR5 MG PO; PROVENTIL/2.5 MG/3 M INH; ULTRAM50 MG PO; VENTOLIN HFA18 GM INH; VIC-FORTE CAPSUL1 MG PO; VISINE15 ML EACH EYE; VITAMIN B-1100 M1 PO; VITAMIN D2000 UNIT PO; ZYLOPRIM300 MG PO
--- NOTE | 2016-06-25 10:52 | NUR ---
1045-RECEIVED DIRECT ADMIT TO ROOM VIA WHEELCHAIR FROM DR ZHANG WITH DX OF ARF. MAX ASSIST X 2 TO GET PATIENT OUT OF CHAIR. PATIENT REPORTS THAT HE AND DR ZHANG "WENT DOWN IN THE OFFICE YESTERDAY". NO SKIN BREAKDOWN SEEN TO BUTTOCK, BILATERA LOWER LEGS ARE RED AND FIRM TO TOUCH IN COLOR. BIALTERAL FEET ARE 3+ EDEMA. STUDENT AND INSTRUCTOR IN ROOM TO PLACE FENG CATH AND IV ORDERED. WENT TO TRUCK TO GET HIS MEDICATONS. WILL ADMIT.
[2016-06-25 11:21] VITALS: BP 104/51; BMI 41.4
--- NOTE | 2016-06-25 11:38 | NUR ---
IV access-22 gauge introcan inserted in left hand x 1 attempt. Xochitl RN
[2016-06-25 12:01] LABS: APPEARANCE CLEAR (CLEAR); BILIRUBIN NEGATIVE (NEGATIVE); COLOR YELLOW (YELLOW); GLUCOSE NEGATIVE (NEGATIVE); KETONE NEGATIVE (NEGATIVE); LEUKOCYTE ESTERASE NEGATIVE (NEGATIVE); NITRITE NEGATIVE (NEGATIVE); PROTEIN NEGATIVE (NEGATIVE); SPECIFIC GRAVITY 1.015 (1.005-1.020); UROBILINOGEN NORMAL (NORMAL)
[2016-06-25 13:04] VITALS: Ht 175.3 cm; Wt 116.9 kg
--- NOTE | 2016-06-25 13:08 | NUR ---
CALL PLACED TO DR ZHANG OFFICE TO SEE IF WE CAN START MIRAPEX EARLIER FOR PATIENT FOR HIS RESTLESS LEGS.
--- NOTE | 2016-06-25 13:11 | NUR ---
TALKED TO SEBASTIÁN AT DR ZHANG OFFICE AND WAS GIVEN THE OKAY TO GIVE A NOW DOSE OF THE MIRAPEX.
--- NOTE | 2016-06-25 15:06 | NUR ---
CALLED TO ROOM WITH STATING HIS OXYGEN MIGHT BE LOW. ON ROOM AIR, 89%. PLACED ON 2L PER NC.
--- NOTE | 2016-06-25 15:50 | NUR ---
1545-BOLUS STARTED ORDERED.
--- NOTE | 2016-06-25 16:11 | NUR ---
1607-URINE SENT TO LAB ORDERED.
[2016-06-25 16:19] LABS: CREATININE - URINE 156.9 mg/dL (30-125); POTASSIUM - URINE 35.3 MMOL/L (12.0-62.0); PRO/CRE RATIO URINE 0.4 mg/g; PROTEIN - URINE 63.4 mg/dL (0.0-11.9)
[2016-06-25 16:27] VITALS: BP 86/49
--- NOTE | 2016-06-25 18:07 | NUR ---
URINE TO FENG BAG NOW HAS SOME RED TINT. DAUGHTER AND JUST LEFT THE ROOM TO GO HOME TO SLEEP. PHONE NUMBERS ARE WRITTEN ON THE BOARD. WILL CONTINUE TO MONITOR.
[2016-06-25 20:00] VITALS: BP 99/47
[2016-06-26] VITALS: BP 107/52
--- NOTE | 2016-06-26 00:12 | NUR ---
PATIENT IN BED, ALERT AND ORIENTED. I.V. PATENT AND INFUSING, FENG CATHETER IN PLACE. ASSESSMENT COMPLETED PER FLOWSHEET. BED IN LOW POSITION, CALL LIGHT IN PLACE. CONTINUE TO MONITOR.
[2016-06-26 04:00] VITALS: BP 112/55
[2016-06-26 05:58] LABS: CALCIUM 8.6 mg/dL (8.5-10.1); CARBON DIOXIDE 22.2 mmol/L (21.0-32.0); CREATININE - SERUM 4.5 mg/dL (0.6-1.3); POTASSIUM - SERUM 5.2 mmol/L (3.5-5.1)
--- NOTE | 2016-06-26 07:00 | NUR ---
Pt. was received at the beginning of this shift in bed awake and oriented x 3. He denied any needs and/or concerns. Stable condition observed. Vital signs: Temp. 97.9, pulse 82, resp. 18, b/p 121/52, 02Sat. 99%. Left hand with IV infusing via pump NS at 150cc's/hr without any difficulty. Pt. is on strict I & O. Molina catheter is patent and draining yellow urine to gravity. 02 per nc going at 2L/min. Call light is in reach. No distress found.
[2016-06-26 10:00] VITALS: BP 126/52
[2016-06-26 11:41] VITALS: BP 123/45
--- NOTE | 2016-06-26 12:00 | NUR ---
Pt. continues to be stable. New order received to change IV fluids to NS 0.9% at 100ml's/hr. No complaints voiced to staff. Continuing to monitor and assist prn.
--- NOTE | 2016-06-26 14:48 | NUR ---
Patient Name: CONNIE MCCRAY Admission Status: Elective Accout number: [id number] Admission Date: 06-25-2016 : 1945 Admission Diagnosis: Attending: LOU Current LOS: 1 Anticipated DC Date: Planned Disposition: Home with Home Health Primary Insurance: [facility] PLANNED EXTERNAL PROVIDER: TO BE DETERMINED BY PATIENT Discharge Planning Comments: * Is the patient Alert and Oriented? Yes 0 * How many steps to enter\exit or inside your home? 2 0 * PCP DR. CHRIS 0 * [facility] * Preadmission Environment Home with Family 0 * ADLs Independent 0 * Equipment Cane Oxygen Rolling Walker 0 * Other Equipment HOME OXYGEN ONLY UNKNOWN - MEDICAL EQUIPMENT PROVIDER 0 * List name and contact numbers for known caregivers / representatives who currently or will assist patient after discharge: DK MCCRAY, SPOUSE, [phone] / [phone] * Community resources currently utilized None 0 * Please name any agencies selected above. NONE 0 * Additional services required to return to the preadmission environment? Yes * Can the patient safely return to the preadmission environment? Yes 0 * Has this patient been hospitalized within the prior 30 days at any hospital? Yes 0 CM MET WITH PT IN ROOM TO DISCUSS DISCHARGE PLANNING AND NEEDS. PT REPORTS LIVING AT HOME INDEPENDENTLY WITH SPOUSE. PT HAS CANE, ROLLING WALKER AND OXYGEN THAT HE USES ONLY WHEN HE NEEDS IT, PROVIDER IS UNKNOWN. PT HAS NO OUTSIDE SERVICES ASSISTING IN THE HOME. CM DISCUSSED AVAILABILITY OF HOME HEALTH, REHAB SERVICES AND MEDICAL EQUIPMENT. PT REPORTS HE TOOK ALL OF HIS MEDICINES AT HOME AND DID NOT KNOW THAT THE DOCTOR STOPPED SOME OF THEM, THAT IS WHY HE IS BACK. PT THINKS THAT A HOME HEALTH NURSE IS A GOOD IDEA. PT DOES NOT WANT TO GO TO INPATIENT OR CARE HOME REHAB. CM LEFT CHOICE LETTER FOR CONSIDERATION OF HOME HEALTH CHOICE PT DID NOT WANT TO OPEN HIS EYES REPORTING HE WATCHED TV ALL NIGHT LAST NIGHT AND HIS EYES HURT. PT REPORTS HIS WILL PICK HIM UP FOR DISCHARGE HOME. PT WILL ACCEPT HOME HEALTH FOR DISCHARGE HOME; CM WILL ARRANGE HOME HEALTH WITH PT'S CHOICE OF PROVIDER IF PHYSICIAN AGREE'S AND PROVIDES ORDERS. Gyroscope Repairer: Aamir Gu
[2016-06-26 15:43] VITALS: BP 143/60
--- NOTE | 2016-06-26 17:26 | NUR ---
Pt is currently eatting his supper with his feeding him. His IV in his left hand is still patent and IV fluids of NS 0.9% infusing through it via pump at 100ml's/hr. flow rate. Molina catheter continues to be patent and draining yellow urine into drainage bag system. No signs of discomfort or distress.
[2016-06-26 21:01] VITALS: BP 153/68
[2016-06-27 01:09] VITALS: BP 140/68
[2016-06-27 04:39] LABS: BASOPHILS 0.2 % (0.0-2.0); EOSINOPHILS 1.3 % (0-7); HEMATOCRIT 33.8 % (42.0-54.0); HEMOGLOBIN 10.5 g/dL (13.5-17.5); IMMATURE GRANULOCYTES 0.4 % (0-5); LYMPHOCYTES 12.5 % (15-50); MCH 29.9 pg (26.0-34.0); MCHC 31.1 g/dL (31.0-37.0); MCV 96.3 fL (80.0-100.0); MEAN PLATELET VOLUME 10.6 fL (7.4-10.4); NEUTROPHILS 78.6 % (40-80); PLATELET COUNT 250 10x3/uL (130-400); RBC 3.51 10x6/uL (4.20-6.10); RDW 15.7 % (11.5-14.5); WBC 8.5 10x3/uL (4.8-10.8)
[2016-06-27 04:52] LABS: ANION GAP 12.9 mmol/L (8-16); CALCIUM 10.2 mg/dL (8.5-10.1); CARBON DIOXIDE 25.7 mmol/L (21.0-32.0); MAGNESIUM - SERUM 2.1 mg/dL (1.8-2.4); PHOSPHOROUS 3.6 mg/dL (2.5-4.9); POTASSIUM - SERUM 5.6 mmol/L (3.5-5.1)
[2016-06-27 04:53] LABS: CREATININE - SERUM 2.3 mg/dL (0.6-1.3)
[2016-06-27 05:23] VITALS: BP 174/75
--- NOTE | 2016-06-27 07:24 | NUR ---
RECEIVED PT REPORT. NO OTHER NEEDS AT THIS TIME. WILL CONTINUE PLAN OF CARE.
[2016-06-27 08:09] VITALS: BP 163/71
--- NOTE | 2016-06-27 08:19 | HP ---
PATIENT: CONNIE MCCRAY MEDICAL RECORD: [id number] ACCOUNT: [id number] LOCATION:[address] : [birth year] ADMISSION DATE: 06/25/16 HISTORY AND PHYSICAL EXAMINATION DATE OF ADMISSION: 06/25/2016 CHIEF COMPLAINT: Weakness, off balance, difficulty urinating. HISTORY OF PRESENT ILLNESS: The patient is a 71-year-old gentleman who had been admitted in the hospital last week with acute renal failure. He had dialysis. He was discharged from the hospital on Wednesday where his creatinine had decreased to a normal level. The patient stated he has had difficulty with decreased urine output. He has also difficulty with ambulation. The patient did bring his medications in today and he had been instructed upon leaving the hospital to stop his Lasix, stop his lisinopril 20 as well as Aldactone, but apparently he has continued. PAST MEDICAL HISTORY: Significant for COPD as well as asthma, hyperlipidemia. He has had hypertension in the past, bilateral knee pain. FAMILY HISTORY: Father of myocardial infarction as well as COPD. SOCIAL HISTORY: The patient is currently . He is educated to the 10th grade. He stopped smoking in 1984. He denies any ethanol use. 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 He is currently . He drinks beer every few months. MEDICATIONS: Advair 100/50 one puff b.i.d., Cipro 500 b.i.d. for UTI, finasteride 5 mg 1 p.o. q. day. Lisinopril 5 mg once a day, omeprazole 20 mg once a day, Mirapex 0.25 p.o. q.h.s., pravastatin 40 mg once a day, Flomax 0.4 mg once a day, tramadol 50 mg 1 every 6 hours p.r.n. pain, Ventolin HFA 90 mcg 2 puffs q.4 hours p.r.n. shortness of breath. Apparently, the patient had returned home and had continued on his Lasix 40 mg once a day along with lisinopril 20 mg once a day, Aldactone and allopurinol. ALLERGIES: No known drug allergies. REVIEW OF SYSTEMS: CONSTITUTIONAL: He denies any headaches, seizure or syncope. Denied change in visual or auditory acuity. PULMONARY: He has reported shortness of breath with exertion. CARDIOVASCULAR: He had no chest pain, palpitation, PND, orthopnea. GASTROINTESTINAL: No chronic nausea, vomiting, melena or hematochezia. GENITOURINARY: No urgency, frequency, or dysuria. PHYSICAL EXAMINATION: GENERAL: The patient is in a wheelchair, accompanied by his . His BMI is 42.3. VITAL SIGNS: His blood pressure is 78/38, pulse 88, and his temperature 97.4, respirations 18. HEENT: Head is normocephalic. No lesions. Ears: TMs clear. Eyes: Pupils equal, round, reactive to light and his extraocular movements intact. Nasal cavity, oral cavity, oropharynx clear. NECK: Supple. There is no adenopathy. HISTORY AND PHYSICAL [id number] CONNIE MCCRAY HEART: Has a regular rhythm. No murmurs, gallops or rub. LUNGS: Clear. ABDOMEN: Soft, bowel sounds are positive. No organomegaly. EXTREMITIES: Lower extremities have 1+ pretibial edema. LABORATORY DATA: The patient had a repeat CBC today, white count 10.5, hemoglobin 10.4, hematocrit 32.8, platelets were 211. Creatinine was elevated at 5.06, today BUN is 80, CO2 is 23.2, chloride 96. ASSESSMENT: 1. Hypotension. 2. Acute renal failure, once again history of hypertension, history of urinary tract infection, chronic obstructive pulmonary disease, asthma. PLAN: The patient will be admitted. Nephrology consultation will be obtained. He will also be hydrated and once again we will repeat his BMP in the a.m. TRANSINT:[id number] Voice Confirmation ID: [id number] DOCUMENT ID: [id number] BI CHRIS MD at 0819 CC: [id number] DICTATION DATE: 06/25/16 1150 MANAGER ALLIANCE: 06/25/16 1355 ADM IN [id number] [place] [address]
[2016-06-27 11:22] LABS: ALBUMIN 2.6 g/dL (3.4-5.0); ANION GAP 8.8 mmol/L (8-16); BILIRUBIN - TOTAL 0.17 mg/dL (0.2-1.3); CALCIUM 9.8 mg/dL (8.5-10.1); CARBON DIOXIDE 30.1 mmol/L (21.0-32.0); POTASSIUM - SERUM 4.9 mmol/L (3.5-5.1)
[2016-06-27 11:36] VITALS: BP 139/68
--- NOTE | 2016-06-27 13:52 | NUR ---
PT IS ALERT. NO SS OF DISTRESS AT THIS TIME. PT WAS SITTING BEDSIDE AND ASSISTED WITH LAYING BACK DOWN IN BED,. IV WAS REATTACHED AND FLUIDS ARE RUNNING AT 100 CC/HR. NO OTHER NEEDS AT THIS TIME, PT INFORMED STAFF THAT HE WOULD BE NAPPING AT THIS ITME. WILL CONTINUE TO MONITOR.
[2016-06-27 15:37] VITALS: BP 151/70
--- NOTE | 2016-06-27 19:55 | NUR ---
PT. IN BED WITH HOB UP FOR COMFORT VISITING [facility] FAMILY MEMBER. FAMILY MEMBER HAD SEVERAL QUESTIONS FOR THE DOCTOR SO A NOTEPAD WAS MADE AVAILABLE FOR HER TO WRITE DOWN ANY QUESTIONS SHE HAD AND TO GIVE THEM TO PT. SO THAT DOCTOR COULD ANSWER QUESTIONS IN THE MORNING. ASSESSMENT COMPLETED. LEFT INNER CALF WARM AND PINK IN COLOR MORE THEN THE RIGHT ONE. BOTH EXTREMITIES ARE DRY AND SCALEY. PT. STATED THEY HAVE BEEN THAT WAY SINCE HE CAME INTO THE HOSPITAL. PT. DENIES ANY NEEDS AT THIS TIME AND HAS HIS CALL LIGHT WITHIN REACH.
[2016-06-27 20:04] VITALS: BP 144/56
--- NOTE | 2016-06-27 22:05 | NUR ---
PT. IN BED WITH HOB UP FOR COMFORT WITH EYES CLOSED AND RESP. EVEN. IV INFUSING VIA PUMP WITHOUT ANY ALARMS OF NS @100H/HR. CALL LIGHT WITHIN REACH.
--- NOTE | 2016-06-28 00:09 | NUR ---
PT. IN BED WITH HOB UP FOR COMFORT AND RESTING QUIETLY. NO VOICED NEEDS AT THIS TIME PT. HAS RECEIVED HIS PAIN MED. FOR LEFT EYE PAIN. CALL LIGHT WITHIN REACH.
[2016-06-28 00:30] VITALS: BP 136/58
--- NOTE | 2016-06-28 02:05 | NUR ---
PT. IN BED WITH HOB UP FOR COMFORT WITH EYES CLOSED AND RESP. EVEN. IV INFUSING VIA PUMP WITHOUT ANY ALARMS TO RIGHT INNER FOREARM. CALL LIGHT WITHIN REACH.
--- NOTE | 2016-06-28 04:07 | NUR ---
PT. IN BED WITH HOB UP FOR COMFORT WITH EYES CLOSED AND RESP. EVEN. IF OF NS INFUSING VIA PUMP AT 100/HR WITHOUT ANY ALARMS. CALL LIGHT WITHIN REACH.
[2016-06-28 04:30] VITALS: BP 135/64
[2016-06-28 04:44] LABS: BASOPHILS 0.5 % (0.0-2.0); EOSINOPHILS 5.2 % (0-7); HEMATOCRIT 33.8 % (42.0-54.0); HEMOGLOBIN 10.3 g/dL (13.5-17.5); IMMATURE GRANULOCYTES 0.2 % (0-5); LYMPHOCYTES 23.4 % (15-50); MCH 29.6 pg (26.0-34.0); MCHC 30.5 g/dL (31.0-37.0); MCV 97.1 fL (80.0-100.0); MEAN PLATELET VOLUME 10.7 fL (7.4-10.4); MONOCYTES 10.3 % (2-11); NEUTROPHILS 60.4 % (40-80); PLATELET COUNT 254 10x3/uL (130-400); RBC 3.48 10x6/uL (4.20-6.10); RDW 15.5 % (11.5-14.5); WBC 8.6 10x3/uL (4.8-10.8)
[2016-06-28 05:21] LABS: ANION GAP 5.6 mmol/L (8-16); CALCIUM 10.2 mg/dL (8.5-10.1); CARBON DIOXIDE 33.2 mmol/L (21.0-32.0); CREATININE - SERUM 1.5 mg/dL (0.6-1.3); MAGNESIUM - SERUM 1.7 mg/dL (1.8-2.4); POTASSIUM - SERUM 4.8 mmol/L (3.5-5.1)
--- NOTE | 2016-06-28 07:06 | NUR ---
RECEIVED PT REPORT. WILL CONTINUE PLAN OF CARE. NO OTHER NEEDS AT THIS TIME. WILL CONTINUE TO [facility].
[2016-06-28 07:34] VITALS: BP 117/54
[2016-06-28] MEDS ORDERED: COREG6.25 MG PO (09:37)
[2016-06-28] MEDS ORDERED: MIRAPEX0.125 MG PO (09:38)
--- NOTE | 2016-06-28 10:28 | NUR ---
PT IS ALERT. ASSESSMENT DONE PER FLOWSHEET. NO CO PAIN IV DC'D AND DC TEACHING DONE AT THIS TIME. WILL CONTINUE TO MONITOR. WHEELCHAIR CALLED FOR PT TO BE WHEELED OUT.
--- NOTE | 2016-06-30 07:09 | DS ---
PATIENT:CONNIE MCCRAY :41 MEDICAL RECORD: [id number] DISCHARGE SUMMARY ADMISSION DATE: 06/25/16 DISCHARGE DATE: 06/28/16 DATE OF ADMISSION: 06/25/2016 DATE OF DISCHARGE: 06/28/2016 CONDITION ON DISCHARGE: Improved. ADMITTING DIAGNOSES: Decreased urine output, hypotension, acute renal failure, urinary tract infection, chronic obstructive pulmonary disease and asthma. DISCHARGE DIAGNOSES: Decreased urine output, hypotension, acute renal failure, urinary tract infection, chronic obstructive pulmonary disease and asthma. HOSPITAL COURSE: Mr. Mccray recently been admitted to the hospital. He had been discharged 2 days prior to his readmission. The patient had been discharged with instructions to stop all diuretics and blood pressure medication, but upon returning home, the patient was restarted all of his medications. On physical examination, the patient was in a wheelchair. His blood pressure is 78/38. His pulse is 88. His temperature is 97. His respirations 18. His HEENT was normal. His neck is supple. There is no adenopathy. His heart had regular rhythm, no murmurs, gallops or rubs. His lung is clear. The patient had no dependent edema. His white count was 10.5, hemoglobin 10.4 and hematocrit 32.2. His creatinine was elevated at 5.06 and BUN is 80. The patient was admitted and his above-mentioned medications were discontinued. Nephrology consultation was obtained. The patient was given vigorous hydration. His BUN and creatinine continued to improve. On the , the patient's BUN was 33, creatinine 1.5, sodium is 143, potassium 4.5, chloride 109 and CO2 was 33.2. His white count was 8.6, hemoglobin 10.3, hematocrit 33.8 and his platelets were 254. The patient's vital signs, his temperature was 97.7, his respirations were 18, his pulse is 74, his blood pressure is 117/54 and his O2 sat was 98% on room air. It was felt the patient was stable and can be discharged. MEDICATIONS: The patient was advised to only take medications, which was on his discharge med rec, which include Coreg 6.25 p.o. b.i.d., Mirapex 0.25 p.o. b.i.d., Advair Diskus 100/50 one puff b.i.d., Proscar 5 mg 1 p.o. q. day, Flomax 0.4 mg 1 p.o. q. day, Omeprazole 20 mg 1 p.o. q. day, Pravastatin 40 mg once a day, tramadol 50 mg 1 every 6 hours p.r.n. severe pain, Ventolin inhaler 2 puffs q.4 hours p.r.n. shortness of breath, thiamine 100 mg p.o. q. day, Cipro 500 mg p.o. b.i.d. for the next 7 days and ciprofloxacin eyedrops 0.03% 2 drops in each eye q.i.d. FOLLOWUP: The patient was to follow up with me on Wednesday. DIET: He would be on a renal diet. He would be on a 50 ounce daily fluid restriction. ACTIVITIES: He was to ambulate on a walker. TRANSINT:[id number] Voice Confirmation ID: [id number] DOCUMENT ID: [id number] DISCHARGE SUMMARY REPORT [id number] CONNIE MCCRAY, BI DELAROSA at 0709 CC: [id number] DICTATION DATE: 06/28/16 0945 EXTRACTOR TENDER RAW STOCK: 06/28/16 1839 DIS IN 06/28/16 [id number] [place] [address]
== END 2016-06-28 10:38 | disposition home health service (06) | DRG 683 ==
LOC: D.LAB 10:22 → D.M2 10:25
PROVIDERS: Family Medicine; Internal Medicine; ADMIT Family Medicine
DX: N17.9 Acute kidney failure, unspecified (principal); Z68.41 Body mass index [BMI] 40.0-44.9, adult; J44.9 Chronic obstructive pulmonary disease, unspecified; E78.5 Hyperlipidemia, unspecified; I10 Essential (primary) hypertension; I95.9 Hypotension, unspecified; E86.9 Volume depletion, unspecified; T50.2X1A Poisoning by carbonic-anhydrase inhibitors, benzothiadiazides and other diuretics, accidental (unintentional), initial encounter; D64.9 Anemia, unspecified; E87.5 Hyperkalemia; Z87.891 Personal history of nicotine dependence

== ENCOUNTER → 2016-07-14 18:35 | Outpatient (CLI) | payer MEDICARE ==
[2016-06-25 13:04] VITALS: BMI 41.3
[~2016-07-14 18:35] MED LIST changes: +COREG6.25 MG PO; +MIRAPEX0.125 MG PO
== END | disposition home or self-care (01) ==
LOC: D.LABREF 18:35
DX: R60.0 Localized edema (principal)

== ENCOUNTER → 2016-11-12 20:57 | Outpatient (CLI) | payer MEDICARE ==
[2016-06-25 13:04] VITALS: BMI 41.3
== END | disposition home or self-care (01) ==
LOC: D.LABREF 20:57
DX: I10 Essential (primary) hypertension (principal)

== ENCOUNTER 2017-10-12 08:30 | Emergency (ER) | payer MEDICARE, MEDICAID ==
[~2017-10-12] VITALS: Ht 175.3 cm; Wt 129.5 kg
[2017-10-12 08:34] VITALS: Ht 175.3 cm; Wt 129.5 kg
[2017-10-12] MEDS ORDERED: FOLTX TABLET1 EACH PO (08:39)
[2017-10-12] MEDS ORDERED: REQUIP4 MG PO (08:40)
[2017-10-12 09:38] LABS: HEMATOCRIT 38.3 % (42.0-54.0); MCH 29.6 pg (26.0-34.0); MCHC 31.3 g/dL (31.0-37.0); MCV 94.3 fL (80.0-100.0); MEAN PLATELET VOLUME 9.7 fL (7.4-10.4); PLATELET COUNT 215 10x3/uL (130-400); RBC 4.06 10x6/uL (4.20-6.10); WBC 8.4 10x3/uL (4.8-10.8)
[2017-10-12 09:50] LABS: ALBUMIN 3.1 g/dL (3.4-5.0); ANION GAP 8.3 mmol/L (8-16); BILIRUBIN - TOTAL 0.19 mg/dL (0.2-1.3); CALCIUM 10.5 mg/dL (8.5-10.1); CARBON DIOXIDE 36.5 mmol/L (21.0-32.0); CREATININE - SERUM 1.4 mg/dL (0.6-1.3); POTASSIUM - SERUM 3.8 mmol/L (3.5-5.1); PROTEIN - SERUM 7.6 g/dL (6.4-8.2)
[2017-10-12 10:15] LABS: EOSINOPHILS 2 % (0-7); LYMPHOCYTES 21 % (15-50); MONOCYTES 11 % (2-11); NEUTROPHILS 66 % (40-80); PLATELET ESTIMATE NORMAL
[2017-10-12 11:03] VITALS: BP 140/48
== END 2017-10-12 10:55 | disposition home or self-care (01) ==
LOC: D.ER 08:30
PROVIDERS: Family Medicine
DX: K30 Functional dyspepsia (principal); I89.0 Lymphedema, not elsewhere classified; I10 Essential (primary) hypertension; I50.9 Heart failure, unspecified; J44.9 Chronic obstructive pulmonary disease, unspecified; J45.909 Unspecified asthma, uncomplicated; N42.9 Disorder of prostate, unspecified

== ENCOUNTER → 2018-03-23 08:30 | Outpatient (CLI) | payer MEDICARE, MEDICAID ==
[2017-10-12 08:34] VITALS: BMI 42.2
[~2018-03-23 08:30] MED LIST changes: +FOLTX TABLET1 EACH PO; +REQUIP4 MG PO
== END | disposition home or self-care (01) ==
LOC: D.CT 08:30
DX: M54.2 Cervicalgia (principal)

== ENCOUNTER 2018-08-02 11:02 | Inpatient (IN) | payer MEDICARE, MEDICAID ==
[~2018-08-02] VITALS: Ht 175.3 cm; Wt 127.0 kg
[2018-08-02 11:55] LABS: HEMATOCRIT 34.7 % (42.0-54.0); HEMOGLOBIN 10.9 g/dL (13.5-17.5); MCH 28.9 pg (26.0-34.0); MCHC 31.4 g/dL (31.0-37.0); MEAN PLATELET VOLUME 10.5 fL (7.4-10.4); PLATELET COUNT 298 10x3/uL (130-400); RBC 3.77 10x6/uL (4.20-6.10); RDW 14.9 % (11.5-14.5); WBC 9.1 10x3/uL (4.8-10.8)
[2018-08-02 12:09] LABS: ALBUMIN 2.8 g/dL (3.4-5.0); ALKALINE PHOSPHATASE 87 U/L (46-116); ALT (SGPT) 27 U/L (10-68); BILIRUBIN - TOTAL 0.19 mg/dL (0.2-1.3); CALC OSMOLALITY 288 mosm/kg (275-300); CALCIUM 9.3 mg/dL (8.5-10.1); CARBON DIOXIDE 39.6 mmol/L (21.0-32.0); CHLORIDE - SERUM 96 mmol/L (98-107); CREATININE - SERUM 1.2 mg/dL (0.6-1.3); GLUCOSE 250 mg/dL (74-106); POTASSIUM - SERUM 3.9 mmol/L (3.5-5.1); PROTEIN - SERUM 7.7 g/dL (6.4-8.2); SODIUM 138 mmol/L (136-145); UREA NITROGEN 27 mg/dL (7-18); eGFR NON AFRICAN AMERICAN 63 mL/min (90-120)
[2018-08-02 12:21] LABS: CREATINE KINASE 143 UL (21-232); MAGNESIUM - SERUM 2.2 mg/dL (1.8-2.4); THYROID STIMULATING HORMONE 3.16 uIU/mL (0.36-3.74)
[2018-08-02 12:22] LABS: TROPONIN-I < 0.017 ng/mL (0.000-0.060)
[2018-08-02 12:59] LABS: EOSINOPHILS 3 % (0-7); LYMPHOCYTES 28 % (15-50); MONOCYTES 8 % (2-11); NEUTROPHILS 60 % (40-80); PLATELET ESTIMATE NORMAL; SMUDGE CELLS OCC
[2018-08-02 13:09] LABS: APPEARANCE CLEAR (CLEAR); COLOR YELLOW (YELLOW); NITRITE NEGATIVE (NEGATIVE); PROTEIN NEGATIVE (NEGATIVE)
[2018-08-02 13:10] LABS: BILIRUBIN NEGATIVE (NEGATIVE); EPITHELIAL CELLS 0-5 /hpf (0-5); GLUCOSE 100 mg/dL (NEGATIVE); KETONE NEGATIVE (NEGATIVE); UROBILINOGEN NORMAL (NORMAL); WHITE CELLS - URINE 0-5 /hpf (0-5)
[2018-08-02 13:11] LABS: BACTERIA FEW /hpf (NONE SEEN)
[2018-08-02] MEDS ORDERED: FUROSEMIDE40 MG PO (14:27)
[2018-08-02] MEDS ORDERED: PROSCAR5 MG PO (14:28)
[2018-08-02] MEDS ORDERED: K-DUR20 MEQ PO (14:29)
[2018-08-02] MEDS ORDERED: FERGON 240 MG240 MG PO (14:31)
[2018-08-02] MEDS ORDERED: SINGULAIR10 MG PO (14:36)
[2018-08-02] MEDS ORDERED: SYNTHROID50 MCG PO (14:38)
[2018-08-02] MEDS ORDERED: OMEPRAZOLE20 M1 PO (14:41)
[2018-08-02] MEDS ORDERED: BACLOFEN10 MG PO (14:41)
[2018-08-02] MEDS ORDERED: BREO ELLIPTA 11 EACH INH (14:47)
[2018-08-02 14:49] VITALS: BP 133/66; BMI 41.4
--- NOTE | 2018-08-02 15:40 | NUR ---
ROCEPHIN STOPPED AT 1540.
--- NOTE | 2018-08-02 16:12 | MORECARE ---
CASE MANAGEMENT DISCHARGE SUMMARY PATIENT: CONNIE MCCRAY UNIT: [id number] ADM DATE: 08/02/18 AGE: 73 : 43 SEX: M ROOM/BED: D.E07 AUTHOR: GEN FLORES PHYSICIAN: REFERRING PHYSICIAN: GURMEET CHEUNG MD DATE OF SERVICE: 08/02/18 Discharge Plan Patient Name: CONNIE MCCRAY Facility: [facility]:[place] : 1945 Planned Disposition: Inpatient Rehab Anticipated Discharge Date: 08/04/18 Discharge Date: Expected LOS: 2 Initial Reviewer: [email or web address] Initial Review Date: 08/02/2018 Generated: 08/02/18 5:12 pm DCP- Discharge Planning Updated by [email or web address]: Becky Merritt on 08/02/18 3:[address] Patient Name: CONNIE MCCRAY Admission Status: ER Accout number: [id number] Admission Date: 08-02-2018 : 1945 Admission Diagnosis: Attending: GURMEET CHEUNG Current LOS: 1 Anticipated DC Date: 08-04-2018 Planned Disposition: Inpatient Rehab Primary Insurance: [facility] MEDIC[facility] SOLUTIONS Discharge Planning Comments: CM met with patient and his to complete initial dc planning assessment. CM educated patient on the CM role and verbal consent given by patient to complete assessment. Patient lives at home with his family and requires assistance in all areas of his adl's. He reports he hasn't been able to stand or walk recently. At discharge patient thinks he will need some type of rehab. CM discussed availability of home health, rehab services, and medical equipment. He currently has [facility] and would like to resume their service at dc if he goes home. KYA signed by patient for Lauren resumption and placed on his chart. COpy given to patient as well. Patient also has [facility] that make visits to his home. CM will continue to follow and will assist as needed with dc plans/needs. Industrial Illuminating Engineer: Becky Merritt RN, [facility] DCPIA - Discharge Planning Initial Assessment Updated by [id number]: Becky Merritt on 08/02/18 4:06 pm * Is the patient Alert and Oriented? Yes * How many steps to enter\exit or inside your home? none * PCP Dr. Giraldo * Pharmacy [facility] * Preadmission Environment Home with Family * ADLs Total Dependent * Equipment Bedside Commode Cane Glucometer Oxygen Rolling Walker Wheelchair * Other Equipment [employer] is O2 provider * List name and contact numbers for known caregivers / representatives who currently or will assist patient after discharge: Jolynn Mccray - [facility] - [phone] * Verbal permission to speak to the caregivers and representatives has been obtained from the patient. Yes * Community resources currently utilized Home Health * Please name any agencies selected above. [facility] * Additional services required to return to the preadmission environment? Yes * Can the patient safely return to the preadmission environment? No * Has this patient been hospitalized within the prior 30 days at any hospital? No Patient Name: CONNIE MCCRAY Page [id number] at 1612 All edits/amendments must be made on the electronic document DICTATION DATE: 08/02/181611 TOUR COUNSELOR: CINDY 08/02/18 161 RPT#: [id number] DC DATE: STATUS: ADM IN [facility] [address] [place] [address] END OF REPORT
--- NOTE | 2018-08-02 19:39 | NUR ---
PT ARRIVED ON MED 3 UNIT. PT TRANSFERRED SELF FROM ER BED TO ROOM BED. PT IS ON O2 AT 2L VIA NC. BED IN LOW. SIDE RAILS X2 PT ALERT AND ORIENTATED. PT DENIES NEEDS OR PAIN. WILL CONTINUE TO MONITOR.
[2018-08-02 20:00] VITALS: BP 132/63
[2018-08-03] VITALS: BP 122/55
--- NOTE | 2018-08-03 01:39 | NUR ---
PT SITTING UP IN BED WATCHING TV. CALL LIGHT IN REACH. DENIES NEEDS OR PAIN AT THIS TIME.
--- NOTE | 2018-08-03 04:21 | NUR ---
I have reviewed this patient and I concur with the Shift Assessment completed by the Licensed Practical Nurse today this shift.
[2018-08-03 04:30] VITALS: BP 145/62
[2018-08-03 07:13] LABS: BASOPHILS 0.2 % (0-2); EOSINOPHILS 1.7 % (0-7); HEMATOCRIT 36.4 % (42.0-54.0); HEMOGLOBIN 11.3 g/dL (13.5-17.5); IMMATURE GRANULOCYTES 0.2 % (0-5); LYMPHOCYTES 14.8 % (15-50); MCH 28.7 pg (26.0-34.0); MCV 92.4 fL (80.0-100.0); MEAN PLATELET VOLUME 10.5 fL (7.4-10.4); NEUTROPHILS 76.1 % (40-80); PLATELET COUNT 295 10x3/uL (130-400); RBC 3.94 10x6/uL (4.20-6.10); RDW 14.9 % (11.5-14.5); WBC 11.1 10x3/uL (4.8-10.8)
[2018-08-03 07:14] LABS: ANION GAP 7.8 mmol/L (8-16); CALCIUM 9.2 mg/dL (8.5-10.1); CREATININE - SERUM 1.1 mg/dL (0.6-1.3); POTASSIUM - SERUM 3.8 mmol/L (3.5-5.1)
--- NOTE | 2018-08-03 07:25 | NUR ---
PT RESTING IN BED, EYES OPEN. NO C/O PAIN. NO S/S OF ACUTE DISTRESS NOTED. PT ALERT AND ORIENTED. UP WITH PHYSICAL THERAPY. USES URINAL AND BEDPAN TO VOID. PT ON 2L O2, NC. IV TO RIGHT HAND, SL. SITE PATENT WITHOUT REDNESS OR SWELLING. PT HAS REDNESS AND SCABS BLE. PT DENIES ANYTHING FURTHER AT THIS TIME. CALL LIGHT IN REACH. WILL CONTINUE TO MONITOR.
[2018-08-03 08:55] VITALS: BP 143/74
--- NOTE | 2018-08-03 09:31 | NUR ---
Rehab Note- Acute Inpatient Rehab prescreen order received. The patient has [facility] insurance and needs an OT Eval ordered for PreAuth process. Will begin the PreAuth process. Will continue to follow at this time. Thank you for this referral! Ifrah Terrell RN
[2018-08-03 10:01] LABS: % SATURATION 9 % (15-55); IRON 22 ug/dl (35-150); TOTAL IRON BIND CAPACITY 222 ug/dl (260-445); UNSAT IRON BIND CAPACITY 200 ug/dl (150-375)
[2018-08-03 10:15] LABS: THYROID STIMULATING HORMONE 2.5 uIU/mL (0.36-3.74)
[2018-08-03 11:41] VITALS: BP 128/65
[2018-08-03 12:56] LABS: URIC ACID 7.7 mg/dL (2.6-7.2)
[2018-08-03 14:26] VITALS: Ht 175.3 cm; Wt 127.0 kg
--- NOTE | 2018-08-03 16:05 | NUR ---
Provided carbohydrate counting booklet
[2018-08-03 16:20] VITALS: BP 131/77
--- NOTE | 2018-08-03 16:53 | NUR ---
OT NOTE: PT COMPLETED TRANSFER WITH MAX A. PT COMPLETED EOB SITTING BALANCE WITH MIN A. PT COMPLETED UE AROM AXS . THANK YOU, JATINDER SALEH
--- NOTE | 2018-08-03 19:10 | NUR ---
ASSISTED PT FROM BED TO CHAIR. BILATERAL LOWER EXTREMETIES PRESENT WITH SCABS AND SORES. REDNESS NOTED WITH DRY SKIN. RIGHT HAND IV WAS INFUSING IRON AND FINISHED. NOW SALINE LOCKED. SPOKE WITH PATIENT ABOUT SCD'S. STATES THAT HE IS HAVING A HARD TIME GETTING COMFORATBLE AND DOES NOT WANT ANY RIGHT NOW. STATES "MAYBE TRY TOMORROW." CALL LIGHT IN REACH.
--- NOTE | 2018-08-03 19:19 | NUR ---
PT RESTING IN BED. NO C/O PAIN. NO S/S OF ACUTE DISTRESS NOTED. PT DENIES ANYTHING FURTHER AT THIS TIME. WILL CONTINUE TO MONITOR.
[2018-08-03 21:21] VITALS: BP 119/57
--- NOTE | 2018-08-03 21:25 | NUR ---
PT REMAINS IN CHAIR. STATES HE IS COMFORTABLE AND DOES NOT WANT TO RETURN TO BED AT THIS TIME. FSBS 197. TREATED PER SLIDING SCALE. VS STABLE. RIGHT HAND STILL SALINE LOCKED. DENIES PAIN. FREQUENTLY SITS IN THE ORTHOPENIC POSITION AND NEEDS "BOTH FEET TO TOUCH GROUND". ABDOMEN SLIGHTLY DISTENDED. STATES HE IS "NEW" TO INSULIN. ANSWERED PT QUESTIONS ABOUT INSULIN AND BLOOD SUGAR. PT HAS CALL LIGHT IN HAND. DENIES FURTHER NEEDS AT THIS TIME.
[2018-08-04] VITALS (7 sets, daily range): BP systolic 130–151; BP diastolic 44–95
--- NOTE | 2018-08-04 02:13 | NUR ---
I have reviewed this patient and I concur with the Shift Assessment completed by the Licensed Practical Nurse today this shift.
--- NOTE | 2018-08-04 04:11 | NUR ---
RESPOSITIONED PT SEVERAL TIMES THROUGH OUT THE EVENING. PT HAS EPISODES WHERE HE FEELS MOST COMFORTABLE WITH FEET FLAT ON GROUND IN ORTHOPENIC POSITION. DUE TO HIS SIZE AND WEAKNESS, PT IS UNABLE TO ADJUST HIMSELF BACK INTO BED. HE IS RATHER LARGE AND EVEN WITH ASSISTANCE OF TWO NURSES FROM CHAIR TO BED HE IS VERY UNSTABLE. HE SAT OUT OF BED UNTIL MIDNIGHT AND THEN WAS RETURNED BACK TO BED BUT WAS VERY SOB AND TOOK SEVERAL MINUTES TO CATCH BREATH. PT AGREED TO ALLOW PHYSICAL THERAPY ASSIST WITH NEXT OOB.
[2018-08-04 06:30] LABS: BASOPHILS 0.2 % (0-2); EOSINOPHILS 2.3 % (0-7); HEMATOCRIT 39.6 % (42.0-54.0); HEMOGLOBIN 12.2 g/dL (13.5-17.5); IMMATURE GRANULOCYTES 0.3 % (0-5); LYMPHOCYTES 15.1 % (15-50); MCH 28.6 pg (26.0-34.0); MCHC 30.8 g/dL (31.0-37.0); MEAN PLATELET VOLUME 10.4 fL (7.4-10.4); MONOCYTES 5.7 % (2-11); NEUTROPHILS 76.4 % (40-80); PLATELET COUNT 322 10x3/uL (130-400); RBC 4.26 10x6/uL (4.20-6.10); RDW 14.9 % (11.5-14.5); WBC 12.7 10x3/uL (4.8-10.8)
[2018-08-04 06:53] LABS: CARBON DIOXIDE 36.8 mmol/L (21.0-32.0); CREATININE - SERUM 1.2 mg/dL (0.6-1.3); POTASSIUM - SERUM 3.8 mmol/L (3.5-5.1)
--- NOTE | 2018-08-04 07:45 | NUR ---
ASSESSMENT COMPLETE. SL TO R HAND. O2 2L NC IN USE. REFUSING SCD'S. SOB ON EXERTION. DENIES ANY NEEDS AT THIS TIME.
[2018-08-04 08:17] LABS: FOLATE (FOLIC ACID) - SERUM 11.6 ng/mL (>3.0)
--- NOTE | 2018-08-04 11:00 | NUR ---
SITTING UP IN CHAIR. CALL LIGHT WITHIN REACH.
--- NOTE | 2018-08-04 13:33 | NUR ---
Rehab Note- Faxed clinicals per request at this time to [facility] for eview for possible acute inpatient rehab authorization. WIll continue to follow at this time & await determination. Thank you for this referral! Ifrah Terrell RN CLinical Liaison, [facility] Rehab
--- NOTE | 2018-08-04 14:00 | NUR ---
SL FOUND SITTING ON TOP OF HAND. CATHETER TIP INTACT. SL SITED TO R FA WITH 22 GUAGE X 2 ATTEMPTS.
--- NOTE | 2018-08-04 14:31 | NUR ---
OT NOTE: PERFORMED BETTER TODAY WITH USE OF RW. TRANSFERS WITH MIN ASSIST AND USE OF WALKER. GROOMING TASKS WITH SET UP; MAX ASSIST TO PELON SOCKS AND MIN ASSIST FOR GOWN. ANABELL SWANN, OTR/L
--- NOTE | 2018-08-04 15:01 | NUR ---
OT NOTE: PT COMPLETED BED MOB SIDE ROLLING AND SUPINE TO SIT WITH MIN A. PT COMPLETED SIT TO STAND WITH MOD A. PT COMPLETED GROOMING AT EOB WITH SET UP. PT STATED L ANKLE IS SORE AND MAKES STANDING PAINFUL. THANK YOU, JATINDER SALEH
--- NOTE | 2018-08-04 18:22 | NUR ---
SITTING UP ON SIDE OF BED. CALL LIGHT WITHIN REACH. DENIES ANY NEEDS AT THIS TIME.
--- NOTE | 2018-08-04 23:00 | NUR ---
RECIEVED SITTING UP ON SIDE OF BED. REQUESTED THIS NURSE TO HELP HIM GET IN THE BED BY LIFTING HIS LEGS UP. LOWER EXTREMITIES RED AND SCALEY R/T CELLULITIS. THEN WANTED TO SIT UP ON THE SIDE OF THE BED AGAIN. USES URINAL. TAKES MEDS WITH OUT DIFFICULTY. DENIES ANY OTHER NEEDS.
[2018-08-05 05:00] VITALS: BP 134/87
[2018-08-05 07:33] LABS: BASOPHILS 0.3 % (0-2); EOSINOPHILS 2.3 % (0-7); HEMATOCRIT 41.4 % (42.0-54.0); IMMATURE GRANULOCYTES 0.5 % (0-5); LYMPHOCYTES 17.9 % (15-50); MCH 29.1 pg (26.0-34.0); MCHC 31.4 g/dL (31.0-37.0); MCV 92.8 fL (80.0-100.0); MEAN PLATELET VOLUME 10.9 fL (7.4-10.4); MONOCYTES 7.5 % (2-11); NEUTROPHILS 71.5 % (40-80); PLATELET COUNT 342 10x3/uL (130-400); RBC 4.46 10x6/uL (4.20-6.10); WBC 13.3 10x3/uL (4.8-10.8)
--- NOTE | 2018-08-05 07:47 | NUR ---
SITTING UP IN CHAIR EATING BREAKFAST. DENIES ANY NEEDS AT THIS TIME.
[2018-08-05 07:50] LABS: ANION GAP 10.8 mmol/L (8-16); CALCIUM 9.9 mg/dL (8.5-10.1); CREATININE - SERUM 1.4 mg/dL (0.6-1.3); POTASSIUM - SERUM 3.8 mmol/L (3.5-5.1)
[2018-08-05 08:00] VITALS: BP 155/92
--- NOTE | 2018-08-05 08:00 | NUR ---
ASSESSMENT COMPLETE. SL TO L HAND. BIPAP IN USE. FREQUENTLY AD OPERATIONS INTERN LIGHT FOR DIFFERENT REASONS. WANTING STAFF TO CALL [facility] ABOUT HIS HEART MEDICATION. EXPLAINED THAT HE IS RECIEVING HIS RHYMTHOL ALREADY. SOB ON EXERTION.
--- NOTE | 2018-08-05 08:00 | NUR ---
ASSESSMENT COMPLETE. SL TO R FA. O2 2L NC IN USE. REFUSING SCD'S D/T TENDERNESS TO BLE. DENIES ANY NEEDS AT THIS TIME.
--- NOTE | 2018-08-05 11:20 | NUR ---
CALLED TO ROOM BY PATIENT STATING THAT SOMETHING WAS WRONG WITH HIS IV. SWELLING NOTED AFTER FLUSING SL. SL REMOVED. CATHETER TIP INTACT.
--- NOTE | 2018-08-05 12:10 | NUR ---
SL SITED TO LEFT HAND WITH 22 GUAGE X 1 ATTEMPT BY CRISTEL WORTHY RN.
[2018-08-05 12:16] VITALS: BP 141/72
--- NOTE | 2018-08-05 15:03 | EC ---
PATIENT:CONNIE MCCRAY DATE OF SERVICE: 08/02/18 SEX: M MEDICAL RECORD: [id number] DATE OF : 41 LOCATION:D.M3 D.121 AGE OF PATIENT: 73 ADMISSION DATE: 08/02/18 REFERRING PHYSICIAN: INTERPRETING PHYSICIAN: LISANDRO GLORIA MD ECHOCARDIOGRAM REPORT ECHO CHARGES 4 ECHO COMPLETE Date: 08/04/18 CLINICAL DIAGNOSIS: CHF ECHOCARDIOGRAPHIC MEASUREMENTS (adult normal given) AC root (d.<3.7cm) 3.2 cm LV Septum d (<1.2 cm> 1.5 cm Valve Excursion 1.3 cm LV Septum (systole) 1.7 cm Left Atria (s.<4.0cm> 3.7 cm LVPW d(<1.2cm) 1.9 cm RV (d.<2.3cm) 4.0 cm LVPW (sytole) 2.2 cm LV diastole(<5.6CM) 6.1 cm MV E-F(>70mm/sec) cm LV systole 4.5 cm LVOT Diameter 1.9 cm MV exc.(>10mm) 1.3 cm Est.ejection fraction (50-75%) % DOPPLER: LVIT cm/sec A 142 cm/sec E 85.0 cm/sec LA cm/sec RVSP 17 mmHg LVOT 120 cm/sec AOP1/2T m/s Asc. Ao 155 cm/sec RVOT 82 cm/sec RA cm/sec PA 127 cm/sec AV Gradient Peak 9.65 mmHg AV Mean 5.28 mmHg AV Area 3.0 cm MV Gradient Peak 5.94 mmHg MV Mean 1.80 mmHg MV Area cm COMMENTS: Sample Shoe Inspector And Reworker: Oni RANDOLPH Tools Administrator: 1 Dr. Gloria TAPE# PACS Pericardial Effusion N DATE OF SERVICE: 08/04/2018 PROCEDURE: Echocardiogram. FINDINGS: 1. Left ventricular chamber size is mildly dilated. Left ventricular systolic function is normal. Overall ejection fraction estimated at 55% to 60%. 2. Left atrium, right atrium, and right ventricular chamber sizes are within normal limits. 3. Valvular structures have normal structure and motion. ECHOCARDIOGRAM REPORT [id number] CONNIE MCCRAY 4. Doppler interrogation reveals no significant valvular insufficiency or stenosis. 5. No evidence of pericardial effusion or left ventricular thrombus. TRANSINT:[id number] Voice Confirmation ID: [id number] DOCUMENT ID: [id number] LISANDRO GLORIA MD at 1503 CC: [id number] DICTATION DATE: 08/05/18905 HOG CONFINEMENT SYSTEM MANAGER: 08/05/18 1129 ADM IN [facility] [address] [id number]
--- NOTE | 2018-08-05 15:42 | NUR ---
OT NOTE: PT COMPLETED BED MOB WITH MOD/MAX A. PT COMPLETED SIT TO STAND WITH MOD/MAX A. PT COMPLETED HYGIENE TASKS WITH MOD A. THANK YOU, JATINDER SALEH
[2018-08-05 16:00] VITALS: BP 140/72
[2018-08-05 21:14] VITALS: BP 128/73
[2018-08-06] VITALS (20 sets, daily range): BP systolic 105–160; BP diastolic 52–769
--- NOTE | 2018-08-06 03:22 | NUR ---
I have reviewed this patient and I concur with the Shift Assessment completed by the Licensed Practical Nurse today this shift.
--- NOTE | 2018-08-06 05:31 | NUR ---
0456 ARRIVED TO UNIT. UNRESPONSIVE UPON ARRIVAL, BIPAP ON. TRANSFERED TO ICU BED AND PATIENT AWOKE. RESPONDED TO QUESTIONS APPROPRIATELY, STATED HE WANTED BACK IN HIS OWN ROOM, EXPLAINED SITUATION. FULL BED BATH PROVIDED, INCONTINENCE CLEANED UP, NEED FOR ACURATE I&O - FENG INSERTED USING STERILE TECHNIQUE, SAMPLE OBTAINED. LETHARGIC THROUGHOUT BATH AND FENG PLACAMENT. HEMODYNAMICALLY STABLE, BED LOW AND LOCKED, CALL LIGHT IN REACH. WILL CONTINUE PLAN OF CARE.
--- NOTE | 2018-08-06 06:20 | NUR ---
UNRESPONSIVE, SHOWING SIGNS OF DECEREBRATE POSTURING AND PUPILS PINPOINT AND FIXED, CALLED DR CHEUNG AND NOTIFIED OF THIS, STAT CT OF HEAD ORDERED.
[2018-08-06 06:53] LABS: BASOPHILS 0.2 % (0-2); EOSINOPHILS 3.3 % (0-7); HEMATOCRIT 37.7 % (42.0-54.0); HEMOGLOBIN 11.6 g/dL (13.5-17.5); IMMATURE GRANULOCYTES 0.2 % (0-5); LYMPHOCYTES 22.9 % (15-50); MCH 28.6 pg (26.0-34.0); MCHC 30.8 g/dL (31.0-37.0); MCV 92.9 fL (80.0-100.0); MEAN PLATELET VOLUME 10.5 fL (7.4-10.4); MONOCYTES 10.8 % (2-11); NEUTROPHILS 62.6 % (40-80); PLATELET COUNT 311 10x3/uL (130-400); RBC 4.06 10x6/uL (4.20-6.10); RDW 14.7 % (11.5-14.5); WBC 13.2 10x3/uL (4.8-10.8)
[2018-08-06 06:58] LABS: APPEARANCE CLEAR (CLEAR); BILIRUBIN NEGATIVE (NEGATIVE); COLOR YELLOW (YELLOW); GLUCOSE NEGATIVE (NEGATIVE); KETONE NEGATIVE (NEGATIVE); NITRITE NEGATIVE (NEGATIVE); PROTEIN NEGATIVE (NEGATIVE); UROBILINOGEN NORMAL (NORMAL)
[2018-08-06 06:59] LABS: RED CELLS - URINE 0-5 /hpf (0-5); WHITE CELLS - URINE OCC /hpf (0-5)
--- NOTE | 2018-08-06 07:00 | NUR ---
REC'ED REPORT FROM OUT GOING RN - PT LYING SUPINE IN BED - r.T. AT BEDSIDE - INCREASED BIPAP TO 40% - PT NOT RESPONDING TO TACTILE STIMULI - WILL NOTIFY
[2018-08-06 07:05] LABS: ANION GAP 13.1 mmol/L (8-16); CALCIUM 9.1 mg/dL (8.5-10.1); CREATININE - SERUM 1.5 mg/dL (0.6-1.3); POTASSIUM - SERUM 4.1 mmol/L (3.5-5.1)
--- NOTE | 2018-08-06 07:59 | NUR ---
CALLED DR CHEUNG AND UPDATED ON PATIENT STATUS. INFORMED OF CT REPORT FINDINGS. INFORMED OF AM LABS AND ABG'S. INFORMED OF MENTAL STATUS CHANGES FROM WAKEFULNESS TO EXTREME LETHARGY AND UNRESPONSIVENESS. NO NEW ORDERS. MONITOR AND DR TYLER ROUND LATER.
--- NOTE | 2018-08-06 09:15 | NUR ---
DAUGHTER ON UNIT TO VIST - UPDATED ON REASON FOR PATIENT'S TRANSFERR TO ICU - DAUGHTER ASKED WHY THE FAMILY HAD NOT BEEN NOTIFIED AND WHAT TIME PT WAS TRANSFERRED - ANSWERED ALL QUESTIONS TO DAUGHTER'S SATISFACTION. - THIS RN CALLED SPOUSE TO INFORM OF TRANSFER STATUS - SPOUSE CONFIRMED NO ONE HAD NOTIFED HER OF TRANSFER - ANSWWERED ALL QUESSTIONS TO FAMILY'S SATISFACTION - CPOC AND REPORT FINDINGS
--- NOTE | 2018-08-06 09:40 | NUR ---
DAUGHTER ASKED TO SPEAK TO MANAGER IN HOME R/T NOT BEING CALLED - NOTIFIED [facility] VISOR -INFORMED FAMILY SHE WILL COME TO UNIT TO SPEAK TO THEM SOON SHE CAN. FAMILY AGREED AND VEBERALIZED UNDERSTANDING. CPOC
--- NOTE | 2018-08-06 10:45 | NUR ---
PLUMBING INSTALLER SPOKE TO FAMILY - DISCUSSED TRANSFERR PORCESS - FAMILY ASKED FOR A COPY OF THE REPORT FOR THIER RECORDS. PLUMBING INSTALLER AGREED TO REQEUST - FAMILY'S QUESITONS WERE ANSWERED TO FAMILY'S STATIFACTION.
--- NOTE | 2018-08-06 11:00 | NUR ---
TURNED PT - PT BECAME MORE ALERT ANSWERED "WHAT IS YOUR NAME" QUESTION - PUPILS BRISK AND REACTIVE TO LIGHT - PT MOVE LOWER EXTS. -
--- NOTE | 2018-08-06 11:22 | NUR ---
Nutrition Follow up Recieved consult for DM teaching Pt recieved a DM handbook during RD assessment Pt is now in ICU Will follow up with additional education as appropriate once more stable Recommend a consult with outpatient dietitian RD following
--- NOTE | 2018-08-06 12:00 | NUR ---
DAUGHTER AT BEDSIDE - TAKING PICTURE OF MONITOR - ASKED DAUGHTER TO DELETE - DAUGHTER AGREED TO DO SO. PATEINT AROUSING TO TACTILE STIMULTATION - PUPILS REACTING TO LIGHT SLIGHTLY - CPOC
--- NOTE | 2018-08-06 13:50 | NUR ---
DISCUSSED PLAN OF CARE WITH DR. SKYE Woodward MD ORDERED TO D/C BACLOFEN AND HOLD MRI PATEINT IS AROUSING TO STIMULATION - VSS PER CONTINOUS CARDIAC MONITORING - CPOC
--- NOTE | 2018-08-06 15:37 | NUR ---
assessment complete - i&o done - patient aa&o x4 - denied pain or discomfort - cpoc
--- NOTE | 2018-08-06 16:00 | NUR ---
I&O DONE - SPOUSE AT BEDSIDE ASKED TO FEED PATIENT - INSTUCTIONS TO SPOUSE GIVEN R/T ASPIRATRIONS VERBALIZED UNDERSTANDING. CALL LIGHT WITHIN REACH - CPOUC
--- NOTE | 2018-08-06 17:17 | NUR ---
PT ATE 100% DINNER TRAY - VSS - AA&O X 4 - DENIES PAIN OR DISCOMFORT - CPOC
--- NOTE | 2018-08-06 17:30 | NUR ---
SPOUSE ANF FAMILY LEFT UNIT - PT RESTING WITH EYES CLOSED - CPOC
--- NOTE | 2018-08-06 18:17 | NUR ---
MEDICATIONS GIVEN - - PT RESTING WATCHING TV - NO C/O OR CONCERNS.
--- NOTE | 2018-08-06 18:47 | NUR ---
INFORMED DR. CHEUNG OF PT'S CHANGE OF CONDITION, AA&O X 4 - MOVES ALL EXT - MD WANTS PT TO STAY IN ICU TONIGHT FOR CLOSE MONITORING - COPC
--- NOTE | 2018-08-06 19:00 | NUR ---
REPORT RECIEVED, SHIFT ASSESSMENT COMPELTE, PLEASE SEE FLOW SHEETS FOR DETAILS. DENIES PAIN/NEEDS. VSS. WILL CONTINUE PLAN OF CARE.
--- NOTE | 2018-08-06 21:00 | NUR ---
FAMILY AT BEDSIDE, UPDATE GIVEN. POSITIONED PATIENT FOR CONFORT. QUESTIONS ANSWERED. SNACK PROVIDED. LEFT HAND PIV INFILTRATED, INFUSION STOPPED. STARTED NEW PIV IN LEFT FA, 1ST TRY, FLUSHED WELL. TOLERATED WELL. INFUSIONS RESTARTED. DENIES ANY OTHER NEEDS. WILL CPOC.
--- NOTE | 2018-08-06 22:52 | NUR ---
REASSESSMENT COMPLETE, PLEASE SEE FLOW SHEETS FOR DETAILS. NO ACUTE CHANGES FROM PREVIOUS ASSESSMENT TO NOTE. DENIES PAIN/NEEDS. HEMODYNAMICALLY STABLE. BED LOW AND LOCKED, CALL LIGHT IN REACH. WILL CONTINUE PLAN OF CARE.
[2018-08-07] VITALS (14 sets, daily range): BP systolic 104–140; BP diastolic 53–77
--- NOTE | 2018-08-07 00:57 | NUR ---
RESTING, WAS ON BIPAP FOR 1 HOUR, TOLERATED WELL BUT WANTED BACK OFF. SPOKE WITH RESPIRATORY, THEY ARE OKAY WITH IT BEING OFF. WILL CLOSELY MONITOR. VSS. WILL CONTINUE PLAN OF CARE.
--- NOTE | 2018-08-07 03:00 | NUR ---
REASSESSMENT COMPLETE, PLEASE SEE FLOW SHEETS FOR DETAILS. NO ACUTE CHANGES FROM PREVIOUS ASSESSMENT TO NOTE. VSS, BED LOW AND LOCKED, CALL LIGHT IN REACH. DENIES PAIN/NEEDS. WILL CONTINUE PLAN OF CARE.
[2018-08-07 03:14] LABS: ANION GAP 10.4 mmol/L (8-16); CALCIUM 9.1 mg/dL (8.5-10.1); CARBON DIOXIDE 35.2 mmol/L (21.0-32.0); POTASSIUM - SERUM 3.6 mmol/L (3.5-5.1)
[2018-08-07 03:16] LABS: CREATININE - SERUM 1.1 mg/dL (0.6-1.3)
[2018-08-07 03:17] LABS: BASOPHILS 0.6 % (0-2); EOSINOPHILS 4.3 % (0-7); HEMATOCRIT 35.1 % (42.0-54.0); HEMOGLOBIN 10.6 g/dL (13.5-17.5); IMMATURE GRANULOCYTES 0.2 % (0-5); LYMPHOCYTES 23.8 % (15-50); MCH 28.4 pg (26.0-34.0); MCHC 30.2 g/dL (31.0-37.0); MCV 94.1 fL (80.0-100.0); MEAN PLATELET VOLUME 10.5 fL (7.4-10.4); MONOCYTES 9.6 % (2-11); NEUTROPHILS 61.5 % (40-80); PLATELET COUNT 296 10x3/uL (130-400); RBC 3.73 10x6/uL (4.20-6.10); RDW 15.1 % (11.5-14.5)
[2018-08-07 03:24] LABS: WBC 9.4 10x3/uL (4.8-10.8)
--- NOTE | 2018-08-07 07:00 | NUR ---
OUTGOING RN REPORT REC'ED - PT AA&O X4 - CPOC
--- NOTE | 2018-08-07 08:00 | NUR ---
ASSESSMENT COMPLTET - BREAKFAST TRAY GIVEN TO PT - PT ABLE TO FEED HIMSELF - CPOC
--- NOTE | 2018-08-07 11:30 | NUR ---
TRANFERR ORDERS REC'ED - AND TO ASSIT PT TO CHAIR AT MEALS - ASSIST X 2 TO MOVE PT TO SIDE OF BED - PT NOT ABLE TO AMBULATE
--- NOTE | 2018-08-07 12:59 | NUR ---
TRANSFERRED PT BACK TO BED WITH P.T. ASSISTANCE - PER P.T. PT IS NOT SAFE TO TRANFER TO CHAIR - ONLY SIT PT UP TO SIDE OF BED TO EAT PT CANNOT USE FEET TO TRANSFER - P.T. ORDER ENTERED -
--- NOTE | 2018-08-07 15:10 | NUR ---
CALLED CHRYSTAL MALDONADO TO GIVE REPORT FOR 2200 - WAS INFORMED PT WILL BE GOING TO 2229 BUT PT WAS STILL IN ROOM - WILL BENOTIFIED WHEN ROOM IS CLEAN
--- NOTE | 2018-08-07 16:07 | NUR ---
CALLED REPORT TO MARSHAL -
--- NOTE | 2018-08-07 16:57 | NUR ---
PT ARRIVED TO UNIT FROM ICU TO ROOM 2200 OREINATED TO ROOM CL IN REACH FAMILY AT BEDSIDE
--- NOTE | 2018-08-07 19:18 | NUR ---
PT IN BED. PROVIDED SECOND GOWN PER REQUEST. PT DENIES FURTHER NEEDS AT THIS TIME.
--- NOTE | 2018-08-08 02:09 | NUR ---
I have reviewed this patient and I concur with the Shift Assessment completed by the Licensed Practical Nurse today this shift.
[2018-08-08 03:00] VITALS: BP 140/71
[2018-08-08 03:55] LABS: BASOPHILS 0.3 % (0-2); EOSINOPHILS 4.1 % (0-7); HEMATOCRIT 38.6 % (42.0-54.0); HEMOGLOBIN 11.6 g/dL (13.5-17.5); IMMATURE GRANULOCYTES 0.2 % (0-5); LYMPHOCYTES 23.7 % (15-50); MCH 28.9 pg (26.0-34.0); MCHC 30.1 g/dL (31.0-37.0); MEAN PLATELET VOLUME 10.3 fL (7.4-10.4); MONOCYTES 9.3 % (2-11); NEUTROPHILS 62.4 % (40-80); PLATELET COUNT 314 10x3/uL (130-400); RBC 4.02 10x6/uL (4.20-6.10); RDW 15.1 % (11.5-14.5)
[2018-08-08 03:58] LABS: ANION GAP 5.4 mmol/L (8-16); CALCIUM 9.2 mg/dL (8.5-10.1); CARBON DIOXIDE 38.6 mmol/L (21.0-32.0); CREATININE - SERUM 1.1 mg/dL (0.6-1.3)
--- NOTE | 2018-08-08 06:20 | NUR ---
PT IN BED. REPOSITIONED PER REQUEST DENIES FURTHER NEEDS AT THIS TIME.
[2018-08-08 08:44] VITALS: BP 117/61
--- NOTE | 2018-08-08 11:42 | NUR ---
Rehab Note- Received voicemail from Teresa with [facility] that the patient has been denied an inpatient acute rehab stay that the patient could be taken care of at a lower level of care as in a SNF. A peer to peer can be set up by Wednesday08/09/18 @ 7041, call [phone] Ext [phone]. Will inform STEPHANIE Santiago. Thank you for this referral! Ifrah Terrell RN CLinicial Liaision, [facility] Rehab
[2018-08-08 13:15] VITALS: BP 126/63
[2018-08-08 16:30] VITALS: BP 131/67
--- NOTE | 2018-08-08 17:41 | NUR ---
OT NOTE: PT WAS SITTING AT EOB WITH SPV. PT COMPLETED GROOMING AND HYGIENE TASKS AT EOB WITH SBA. PT COMPLETED BUE AROM EXS AT EOB. THANK YOU, JATINDER SALEH
--- NOTE | 2018-08-08 18:29 | MORECARE ---
CASE MANAGEMENT DISCHARGE SUMMARY PATIENT: CONNIE MCCRAY UNIT: [id number] ADM DATE: 08/02/18 AGE: 73 : 43 SEX: M ROOM/BED: D.2201 AUTHOR: MARK,DOC PHYSICIAN: REFERRING PHYSICIAN: GURMEET CHEUNG MD DATE OF SERVICE: 08/08/18 Discharge Plan Patient Name: CONNIE MCCRAY Facility: [facility]:[place] : 1945 Planned Disposition: Inpatient Rehab Anticipated Discharge Date: 08/04/18 Discharge Date: Expected LOS: 2 Initial Reviewer: [email or web address] Initial Review Date: 08/02/2018 Generated: 08/08/18 7:28 pm DCP- Discharge Planning Updated by [email or web address]: Julita Elizabeth on 08/08/18 5:[address] spoke with patient about his insurance has denied him to go to inpatient rehab, I gave him a list of skilled facilities to look at and discuss with his . CM will continue to follow and assist with DC planning DCP- Discharge Planning Updated by [email or web address]: Becky Merritt on 08/02/18 3:[address] Patient Name: CONNIE MCCRAY Admission Status: ER Accout number: [id number] Admission Date: 08-02-2018 : 1945 Admission Diagnosis: Attending: GURMEET CHEUNG Current LOS: 1 Anticipated DC Date: 08-04-2018 Planned Disposition: Inpatient Rehab Primary Insurance: [facility] MEDICARE SOLUTIONS Discharge Planning Comments: CM met with patient and his to complete initial dc planning assessment. CM educated patient on the CM role and verbal consent given by patient to complete assessment. Patient lives at home with his family and requires assistance in all areas of his adl's. He reports he hasn't been able to stand or walk recently. At discharge patient thinks he will need some type of rehab. CM discussed availability of home health, rehab services, and medical equipment. He currently has [facility] and would like to resume their service at dc if he goes home. KYA signed by patient for [facility] res[facility] and placed on his chart. COpy given to patient as well. Patient also has [facility] that make visits to his home. CM will continue to follow and will assist as needed with dc plans/needs. Rice Farmworker: Becky Merritt RN, [facility] DCPIA - Discharge Planning Initial Assessment Updated by [email or web address]: Becky Merritt on 08/02/18 4:06 pm * Is the patient Alert and Oriented? Yes * How many steps to enter\exit or inside your home? none * PCP Dr. Giraldo * Pharmacy [facility] * Preadmission Environment Home with Family * ADLs Total Dependent * Equipment Bedside Commode Cane Glucometer Oxygen Rolling Walker Wheelchair * Other Equipment [employer] is O2 provider * List name and contact numbers for known caregivers / representatives who currently or will assist patient after discharge: Jolynn Mccray - [facility] - [phone] * Verbal permission to speak to the caregivers and representatives has been obtained from the patient. Yes * Community resources currently utilized Home Health * Please name any agencies selected above. [facility] * Additional services required to return to the preadmission environment? Yes * Can the patient safely return to the preadmission environment? No * Has this patient been hospitalized within the prior 30 days at any hospital? No Last DP export: 08/02/18 3:12 p Patient Name: CONNIE MCCRAY Page [id number] at 1829 All edits/amendments must be made on the electronic document DICTATION DATE: 08/08/181827 MORTGAGE LOAN REVIEWER: CINDY 08/08/181827 RPT#: [id number] DC DATE: STATUS: ADM IN [facility] [address] [place] [address] END OF REPORT
[2018-08-08 21:35] VITALS: BP 120/61
[2018-08-09 00:39] VITALS: BP 120/60
--- NOTE | 2018-08-09 04:51 | NUR ---
REC'D. AT [facility] OF SHIFT.SITTING ON SIDE OF BED.ASSISTED TO BEDSIDE COMMODE MAX ASSIST.OF TWO PEOPLE.WITH WALKER.LOWER EXT.X2 3+ EDEMA,REDNESS DRY SCALY SKIN AND FEET.PING DRANING DK CONCENTRATED URINE.ASSISTED BACK TO BED REFUSED FOR FEET TO BE ELEVATED ON PILLOW.HOB UP.BED ARMED WITH FALL PRECAUTIONS IN PROGRESS.
[2018-08-09 05:20] LABS: BASOPHILS 0.2 % (0-2); EOSINOPHILS 4.8 % (0-7); HEMATOCRIT 38.5 % (42.0-54.0); HEMOGLOBIN 11.5 g/dL (13.5-17.5); IMMATURE GRANULOCYTES 0.1 % (0-5); LYMPHOCYTES 27.5 % (15-50); MCH 28.5 pg (26.0-34.0); MCHC 29.9 g/dL (31.0-37.0); MCV 95.5 fL (80.0-100.0); MEAN PLATELET VOLUME 10.7 fL (7.4-10.4); MONOCYTES 8.2 % (2-11); NEUTROPHILS 59.2 % (40-80); PLATELET COUNT 310 10x3/uL (130-400); RBC 4.03 10x6/uL (4.20-6.10); RDW 15.1 % (11.5-14.5); WBC 9.3 10x3/uL (4.8-10.8)
[2018-08-09 05:38] LABS: ALBUMIN 2.8 g/dL (3.4-5.0); ANION GAP 6.8 mmol/L (8-16); BILIRUBIN - TOTAL 0.21 mg/dL (0.2-1.3); CALCIUM 9.3 mg/dL (8.5-10.1); CARBON DIOXIDE 39.4 mmol/L (21.0-32.0); CREATININE - SERUM 1.1 mg/dL (0.6-1.3); MAGNESIUM - SERUM 2.2 mg/dL (1.8-2.4); POTASSIUM - SERUM 4.2 mmol/L (3.5-5.1); PROTEIN - SERUM 7.8 g/dL (6.4-8.2)
--- NOTE | 2018-08-09 07:37 | NUR ---
PT ALERT X 4. BREATH SOUNDS DIMINISHED TO LOWER LOBES, 4L O2 PER NC. TELEMETRY IN PLACE. IV TO LEFT FOREARM, SALINE LOCKED. FENG IN PLACE, URINE DARK BROWN. +3 EDEMA TO BLE, SKIN REDDENED AND FLAKY. PT REPORTING NO PAIN AT THIS TIME. BED LOW, CALL LIGHT IN REACH. NO OTHER NEEDS AT THIS TIME.
[2018-08-09 08:17] VITALS: BP 134/74
--- NOTE | 2018-08-09 09:36 | NUR ---
Unna boots applied bilaterally from base of toes to base of knees. After application of zinc soaked wrap, Coban wrap was applied. Careful attention paid to tightness of boots by checking at knees and toes using 2 fingers. Pt tolerated well.
--- NOTE | 2018-08-09 12:24 | MORECARE ---
CASE MANAGEMENT DISCHARGE SUMMARY PATIENT: CONNIE MCCRAY UNIT: [id number] ADM DATE: 08/02/18 AGE: 73 : 43 SEX: M ROOM/BED: D.2201 AUTHOR: MARK,DOC PHYSICIAN: REFERRING PHYSICIAN: GURMEET CHEUNG MD DATE OF SERVICE: 08/09/18 Discharge Plan Patient Name: CONNIE MCCRAY Facility: [facility]:[place] : 1945 Planned Disposition: Inpatient Rehab Anticipated Discharge Date: 08/04/18 Discharge Date: Expected LOS: 2 Initial Reviewer: [email or web address] Initial Review Date: 08/02/2018 Generated: 08/09/18 1:23 pm Comments DCP- Discharge Planning Updated by [email or web address]: Julita Elizabeth on 08/09/18 11:[address] SPOKE WITH PATIENT AND HIS , HE WOULD LIKE TO APPEAL THE REHAB DENIAL. I CALLED MITZY @ [facility] @ [facility] TO SET UP A P2P, I CALLED [phone] EXT [phone] IF THE P2P DOES NOT WORK, THEIR SECOND CHOICE IS [facility]. KYA SIGNED AND PLACED IN CHART. CM TO FOLLOW AND ASSIST WITH DC PLANNING DCP- Discharge Planning Updated by [email or web address]: Julita Elizabeth on 08/08/18 5:[address] spoke with patient about his insurance has denied him to go to inpatient rehab, I gave him a list of skilled facilities to look at and discuss with his . CM will continue to follow and assist with DC planning DCP- Discharge Planning Updated by [email or web address]: Becky Merritt on 08/02/18 3:[address] Patient Name: CONNIE MCCRAY Admission Status: ER Accout number: [id number] Admission Date: 08-02-2018 : 1945 Admission Diagnosis: Attending: GURMEET CHEUNG Current LOS: 1 Anticipated DC Date: 08-04-2018 Planned Disposition: Inpatient Rehab Primary Insurance: [facility] MEDICARE SOLUTIONS Discharge Planning Comments: CM met with patient and his to complete initial dc planning assessment. CM educated patient on the CM role and verbal consent given by patient to complete assessment. Patient lives at home with his family and requires assistance in all areas of his adl's. He reports he hasn't been able to stand or walk recently. At discharge patient thinks he will need some type of rehab. CM discussed availability of home health, rehab services, and medical equipment. He currently has [facility] and would like to resume their service at dc if he goes home. KYA signed by patient for [facility] and placed on his chart. COpy given to patient as well. Patient also has [facility] that make visits to his home. CM will continue to follow and will assist as needed with dc plans/needs. Safety Investigator/Cause Analyst: Becky Merritt RN, [facility] DCPIA - Discharge Planning Initial Assessment Updated by [email or web address]: Becky Merritt on 08/02/18 4:06 pm * Is the patient Alert and Oriented? Yes * How many steps to enter\exit or inside your home? none * PCP Dr. Giraldo * Pharmacy [facility] * Preadmission Environment Home with Family * ADLs Total Dependent * Equipment Bedside Commode Cane Glucometer Oxygen Rolling Walker Wheelchair * Other Equipment [facility] is O2 provider * List name and contact numbers for known caregivers / representatives who currently or will assist patient after discharge: Jolynn Mccray - [facility] - [phone] * Verbal permission to speak to the caregivers and representatives has been obtained from the patient. Yes * Community resources currently utilized Home Health * Please name any agencies selected above. [facility] * Additional services required to return to the preadmission environment? Yes * Can the patient safely return to the preadmission environment? No * Has this patient been hospitalized within the prior 30 days at any hospital? No Coverage Notice Reviewer: [id number] Crissy Elizabeth Notice Issued Date-Time: 08/09/2018 12:11 Notice Type: Patient Choice Letter Notice Delivered To: Patient Relationship to Patient: Nuisance Animal Damage Control Agent Name: Delivery Method: - Tuyet Days: Prior Verbal Notification: Recipient Understood Notice: Yes Recipient Signature: Yes Med Rec Note Co-signed by Attending: Coverage Notice Comment: 1)INPATIENT REHAB 2) [facility] Gu[facility] DP export: 08/08/18 5:28 pm Patient Name: CONNIE MCCRAY Page [phone] at 1224 All edits/amendments must be made on the electronic document DICTATION DATE: 08/09/18 1223 REGIONAL ENGINEER: CINDY 08/09/18 1223 RPT#: [id number] DC DATE: STATUS: ADM IN [facility] [address] [place] [address] END OF REPORT
[2018-08-09 12:48] VITALS: BP 133/76
[2018-08-09 16:34] VITALS: BP 127/60
--- NOTE | 2018-08-09 19:59 | NUR ---
OT NOTE: PT COMPLETED BED MOB WITH MIN/MOD A. PT COMPLETED EOB SITTING BALANCE WITH SPV. PT COMPLETED SIT TO STAND WITH MIN A. PT COMPLETED ADL MOB WITH MIN A/CGA. PT COMPLETED TOILETING TASKS WITH MIN A. PT COMPLETED UE AROM EXS AT EOB. THANK YOU, JATINDER SALEH
[2018-08-09 21:12] VITALS: BP 123/103
[2018-08-10 05:09] VITALS: BP 139/68
[2018-08-10 06:41] LABS: BASOPHILS 0.6 % (0-2); EOSINOPHILS 5.5 % (0-7); HEMATOCRIT 37.7 % (42.0-54.0); HEMOGLOBIN 11.2 g/dL (13.5-17.5); IMMATURE GRANULOCYTES 0.3 % (0-5); LYMPHOCYTES 28.8 % (15-50); MCH 28.4 pg (26.0-34.0); MCHC 29.7 g/dL (31.0-37.0); MCV 95.4 fL (80.0-100.0); MEAN PLATELET VOLUME 10.7 fL (7.4-10.4); NEUTROPHILS 57.8 % (40-80); PLATELET COUNT 322 10x3/uL (130-400); RBC 3.95 10x6/uL (4.20-6.10); RDW 14.8 % (11.5-14.5); WBC 9.9 10x3/uL (4.8-10.8)
[2018-08-10 06:54] LABS: ALKALINE PHOSPHATASE 83 U/L (46-116); ALT (SGPT) 35 U/L (10-68); BILIRUBIN - TOTAL 0.24 mg/dL (0.2-1.3); CALC OSMOLALITY 281 mosm/kg (275-300); CALCIUM 9.6 mg/dL (8.5-10.1); CARBON DIOXIDE 36.8 mmol/L (21.0-32.0); CHLORIDE - SERUM 100 mmol/L (98-107); GLUCOSE 114 mg/dL (74-106); MAGNESIUM - SERUM 2.1 mg/dL (1.8-2.4); POTASSIUM - SERUM 4.4 mmol/L (3.5-5.1); PROTEIN - SERUM 7.7 g/dL (6.4-8.2); SODIUM 140 mmol/L (136-145); UREA NITROGEN 17 mg/dL (7-18); eGFR NON AFRICAN AMERICAN 77 mL/min (90-120)
--- NOTE | 2018-08-10 08:00 | NUR ---
PT SITTING UP ON SIDE OF BED. NO ACUTE DISTRESS NOTED AT THIS TIME. O2 @ 4L NC IN PLACE. SALINE LOC TO RIGHT HAND INTACT. SITE WITHOUT REDNESS OR EDEMA. DENIES PAIN AT THIS TIME. UNNA BOOTS IN PLACE TO BILATERAL LOWER EXTREMITIES. DENIES FURTHER NEEDS AT THIS TIME. CL WITHIN REACH. ENCOURAGED TO CALL WITH NEEDS. CONTINUE POC
[2018-08-10 09:35] VITALS: BP 150/79
[2018-08-10 13:58] VITALS: BP 149/59
[2018-08-10 18:01] VITALS: BP 120/65
--- NOTE | 2018-08-10 20:50 | NUR ---
OT NOTE: PT COMPLETED EOB SITTING BALANCE WITH SBA. PT COMPLETED SIT TO STAND WITH MIN A. PT COMPLETED BUE AROM EXS AT EOB. PT REQUIRED MAX A FOR HYGIENE. TOBIAS NOTIFIED NURSING THAT PATIENT WAS REQUESTING A BREATHING TREATMENT. THANK YOU, JATINDER SALEH
[2018-08-10 21:11] VITALS: BP 120/60
[2018-08-11 01:32] VITALS: BP 134/64
--- NOTE | 2018-08-11 03:18 | NUR ---
REC'D.AT SHIFT CHGE SITTING ON SIDE OF BED. UNNA BOOT DRSG. INTACT TO LOWER EXT.BILAT. WITH 4+ EDEMA/REDNESS AND SCALY FLAKY SKIN OBSERVED WILL CONTINUE TO MONITOR FOR ANY CHGES.IN NEUROVASCULAR STATUS AND FOLLOW CURRENT PLAN OF CARE
[2018-08-11 05:18] VITALS: BP 135/68
--- NOTE | 2018-08-11 05:27 | NUR ---
I AGREE WITH PICK REMOVER ASSESSMENT.
[2018-08-11 07:12] LABS: BASOPHILS 0.4 % (0-2); EOSINOPHILS 5.5 % (0-7); HEMATOCRIT 38.5 % (42.0-54.0); HEMOGLOBIN 11.6 g/dL (13.5-17.5); IMMATURE GRANULOCYTES 0.5 % (0-5); LYMPHOCYTES 31.7 % (15-50); MCH 28.5 pg (26.0-34.0); MCHC 30.1 g/dL (31.0-37.0); MCV 94.6 fL (80.0-100.0); MEAN PLATELET VOLUME 10.7 fL (7.4-10.4); MONOCYTES 6.4 % (2-11); NEUTROPHILS 55.5 % (40-80); PLATELET COUNT 342 10x3/uL (130-400); RBC 4.07 10x6/uL (4.20-6.10); RDW 15.2 % (11.5-14.5); WBC 10.2 10x3/uL (4.8-10.8)
--- NOTE | 2018-08-11 07:40 | NUR ---
PT SITTING UP ON SIDE OF BED. NO ACUTE DISTRESS NOTED. RESP EVEN AND UNLABORED. O2 @ 4L NC IN PLACE. DENIES PAIN AT THIS TIME. SALINE LOC TO RIGHT HAND INTACT WITHOUT REDNESS OR EDEMA. DENIES FURTHER NEEDS AT THIS TIME. CL WITHIN REACH. ENCOURAGED TO CALL WITH NEEDS. CONTINUE POC
[2018-08-11 07:42] LABS: ALBUMIN 3.1 g/dL (3.4-5.0); ANION GAP 8.3 mmol/L (8-16); BILIRUBIN - TOTAL 0.21 mg/dL (0.2-1.3); CALCIUM 9.6 mg/dL (8.5-10.1); CARBON DIOXIDE 36.2 mmol/L (21.0-32.0); CREATININE - SERUM 1.1 mg/dL (0.6-1.3); MAGNESIUM - SERUM 2.2 mg/dL (1.8-2.4); POTASSIUM - SERUM 4.5 mmol/L (3.5-5.1); PROTEIN - SERUM 7.8 g/dL (6.4-8.2)
[2018-08-11 08:45] VITALS: BP 127/61
--- NOTE | 2018-08-11 12:15 | NUR ---
NUTRITION F/U CHART REVIEWED, PT VISIT. TOLERATING ADA DIET WITH GOOD PO INTAKE RECENT MEALS. WILL CONTINUE TO PROVIDE DIET, MONITOR INTAKE. RD FOLLOWING
[2018-08-11] MEDS ORDERED: Lovenox INJ SC (14:06)
[2018-08-11] MEDS ORDERED: COLACE100 MG PO (14:06)
[2018-08-11] MEDS ORDERED: XOPENEX 1.1.25 MG/3 UPD (14:06)
[2018-08-11] MEDS ORDERED: MIRALAX17 GM PO ×2 (14:07→14:56)
[2018-08-11] MEDS ORDERED: HUMULIN R100 U/ML SC (14:07)
[2018-08-11] MEDS ORDERED: FLORAJEN3 CAPS460 MG PO (14:07)
[2018-08-11] MEDS ORDERED: PROTONIX40 MG PO (14:07)
[2018-08-11] MEDS ORDERED: GLUCOPHAGE500 MG PO (14:08)
[2018-08-11] MEDS ORDERED: BREO ELLIPTA 11 EACH INH (14:09)
--- NOTE | 2018-08-11 14:39 | MORECARE ---
CASE MANAGEMENT DISCHARGE SUMMARY PATIENT: CONNIE MCCRAY UNIT: [id number] ADM DATE: 08/02/18 AGE: 73 : 43 SEX: M ROOM/BED: D.2201 AUTHOR: MARKDOC PHYSICIAN: REFERRING PHYSICIAN: GURMEET CHEUNG MD DATE OF SERVICE: 08/11/18 Discharge Plan Patient Name: CONNIE MCCRAY Facility: [facility]:[place] : 1945 Planned Disposition: Inpatient Rehab Anticipated Discharge Date: 08/04/18 Discharge Date: Expected LOS: 2 Initial Reviewer: [email or web address] Initial Review Date: 08/02/2018 Generated: 08/11/18 3:39 pm Comments DCP- Discharge Planning Updated by [email or web address]: Julita Elizabeth on 08/11/18 1:[address] P2P was done with Dr Leiva and the inpatient rehab denial was over turned and the patient is now approved for inpatient rehab. IMM served and explained. Auth # [id number] Patient has already called his and let her know DCP- Discharge Planning Updated by [email or web address]: Julita Elizabeth on 08/09/18 11:[address] SPOKE WITH PATIENT AND HIS , HE WOULD LIKE TO APPEAL THE REHAB DENIAL. I CALLED MITZY @ [facility] @ 0960 TO SET UP A P2P, I CALLED [phone] EXT [phone] IF THE P2P DOES NOT WORK, THEIR SECOND CHOICE [facility]. KYA SIGNED AND PLACED IN CHART. CM TO FOLLOW AND ASSIST WITH DC PLANNING DCP- Discharge Planning Updated by [email or web address]: Julita Elizabeth on 08/08/18 5:[address] spoke with patient about his insurance has denied him to go to inpatient rehab, I gave him a list of skilled facilities to look at and discuss with his . CM will continue to follow and assist with DC planning DCP- Discharge Planning Updated by [email or web address]: Becky Merritt on 08/02/18 3:[address] Patient Name: CONNIE MCCRAY Admission Status: ER Accout number: [id number] Admission Date: 08-02-2018 : 1945 Admission Diagnosis: Attending: GURMEET CHEUNG Current LOS: 1 Anticipated DC Date: 08-04-2018 Planned Disposition: Inpatient Rehab Primary Insurance: [facility] MEDICARE SOLUTIONS Discharge Planning Comments: CM met with patient and his to complete initial dc planning assessment. CM educated patient on the CM role and verbal consent given by patient to complete assessment. Patient lives at home with his family and requires assistance in all areas of his adl's. He reports he hasn't been able to stand or walk recently. At discharge patient thinks he will need some type of rehab. CM discussed availability of home health, rehab services, and medical equipment. He currently has [facility] and would like to resume their service at dc if he goes home. KYA signed by patient for [facility] and placed on his chart. COpy given to patient as well. Patient also has [facility] that make visits to his home. CM will continue to follow and will assist as needed with dc plans/needs. Sheetrock Applicator: Becky Merritt RN, [facility] DCPIA - Discharge Planning Initial Assessment Updated by [email or web address]: Becky Merritt on 08/02/18 4:06 pm * Is the patient Alert and Oriented? Yes * How many steps to enter\exit or inside your home? none * PCP Dr. Giraldo * Pharmacy [facility] * Preadmission Environment Home with Family * ADLs Total Dependent * Equipment Bedside Commode Cane Glucometer Oxygen Rolling Walker Wheelchair * Other Equipment [employer] is O2 provider * List name and contact numbers for known caregivers / representatives who currently or will assist patient after discharge: Jolynn Mccray - [facility] - [phone] * Verbal permission to speak to the caregivers and representatives has been obtained from the patient. Yes * Community resources currently utilized Home Health * Please name any agencies selected above. [facility] * Additional services required to return to the preadmission environment? Yes * Can the patient safely return to the preadmission environment? No * Has this patient been hospitalized within the prior 30 days at any hospital? No Coverage Notice Reviewer: [email or web address] - Julita Elizabeth Notice Issued Date-Time: 08/09/2018 12:11 Notice Type: Patient Choice Letter Notice Delivered To: Patient Relationship to Patient: Assistant Operator Name: Delivery Method: - Tuyet Days: Prior Verbal Notification: Recipient Understood Notice: Yes Recipient Signature: Yes Med Rec Note Co-signed by Attending: Coverage Notice Comment: 1)INPATIENT REHAB 2) [facility] Reviewer: [id number] Crissy Elizabeth Notice Issued Date-Time: 08/11/2018 14:20 Notice Type: IM Discharge Notice Notice Delivered To: Patient Relationship to Patient: Assistant Operator Name: Delivery Method: HAND - Hand Delivered Tuyet Days: Prior Verbal Notification: Recipient Understood Notice: Yes Recipient Signature: Yes Med Rec Note Co-signed by Attending: Coverage Notice Comment: Last DP export: 08/09/18 11:23 am Patient Name: CONNIE MCCRAY Page [id number] at 1439 All edits/amendments must be made on the electronic document DICTATION DATE: 08/11/181437 PACKER SAUSAGE AND WIENER: CINDY 08/11/181437 RPT#: [id number] DC DATE: STATUS: ADM IN [facility] [address] [place] [address] END OF REPORT
[2018-08-11 14:41] VITALS: BP 149/57
--- NOTE | 2018-08-11 14:49 | NUR ---
Unna boots removed for Dr. Rodriguez to check legs. Wraps are working well. Redness and edema has decreased. Applied new set.
[2018-08-11 18:28] VITALS: BP 130/74
--- NOTE | 2018-08-15 13:46 | MORECARE ---
CASE MANAGEMENT DISCHARGE SUMMARY PATIENT: CONNIE MCCRAY UNIT: [id number] ADM DATE: 08/02/18 AGE: 73 : 43 SEX: M ROOM/BED: D.2201 AUTHOR: MARK,DOC PHYSICIAN: REFERRING PHYSICIAN: GURMEET CHEUNG MD DATE OF SERVICE: 08/15/18 Discharge Plan Patient Name: CONNIE MCCRAY Facility: [facility]:[place] : 1945 Planned Disposition: Inpatient Rehab Anticipated Discharge Date: 08/04/18 Discharge Date: 08/11/2018 Expected LOS: 2 Initial Reviewer: [email or web address] Initial Review Date: 08/02/2018 Generated: 08/15/18 2:46 pm DCP- Discharge Planning Updated by [email or web address]: Julita Elizabeth on 08/11/18 1:[address] P2P was done with Dr Leiva and the inpatient rehab denial was over turned and the patient is now approved for inpatient rehab. IMM served and explained. Auth # [id number] Patient has already called his and let her know DCP- Discharge Planning Updated by [email or web address]: Julita Elizabeth on 08/09/18 11:[address] SPOKE WITH PATIENT AND HIS , HE WOULD LIKE TO APPEAL THE REHAB DENIAL. I CALLED MITZY @ [facility] @ 9810 TO SET UP A P2P, I CALLED [phone] EXT [phone] IF THE P2P DOES NOT WORK, THEIR SECOND CHOICE [facility]. KYA SIGNED AND PLACED IN CHART. CM TO FOLLOW AND ASSIST WITH DC PLANNING DCP- Discharge Planning Updated by [email or web address]: Julita Elizabeth on 08/08/18 5:[address] spoke with patient about his insurance has denied him to go to inpatient rehab, I gave him a list of skilled facilities to look at and discuss with his . CM will continue to follow and assist with DC planning DCP- Discharge Planning Updated by [email or web address]: Becky Merritt on 08/02/18 3:[address] Patient Name: CONNIE MCCRAY Admission Status: ER Accout number: [id number] Admission Date: 08-02-2018 : 1945 Admission Diagnosis: Attending: GURMEET CHEUNG Current LOS: 1 Anticipated DC Date: 08-04-2018 Planned Disposition: Inpatient Rehab Primary Insurance: [facility] MEDICARE SOLUTIONS Discharge Planning Comments: CM met with patient and his to complete initial dc planning assessment. CM educated patient on the CM role and verbal consent given by patient to complete assessment. Patient lives at home with his family and requires assistance in all areas of his adl's. He reports he hasn't been able to stand or walk recently. At discharge patient thinks he will need some type of rehab. CM discussed availability of home health, rehab services, and medical equipment. He currently has [facility] and would like to resume their service at dc if he goes home. KYA signed by patient for [facility] resumption and placed on his chart. COpy given to patient as well. Patient also has [facility] that make visits to his home. CM will continue to follow and will assist as needed with dc plans/needs. Trolley Worker: Becky Merritt RN, [facility] DCPIA - Discharge Planning Initial Assessment Updated by [email or web address]: Becky Merritt on 08/02/18 4:06 pm * Is the patient Alert and Oriented? Yes * How many steps to enter\exit or inside your home? none * PCP Dr. Giraldo * Pharmacy [facility] * Preadmission Environment Home with Family * ADLs Total Dependent * Equipment Bedside Commode Cane Glucometer Oxygen Rolling Walker Wheelchair * Other Equipment [employer] is O2 provider * List name and contact numbers for known caregivers / representatives who currently or will assist patient after discharge: Jolynn Mccray - [facility] - [phone] * Verbal permission to speak to the caregivers and representatives has been obtained from the patient. Yes * Community resources currently utilized Home Health * Please name any agencies selected above. [facility] * Additional services required to return to the preadmission environment? Yes * Can the patient safely return to the preadmission environment? No * Has this patient been hospitalized within the prior 30 days at any hospital? No Coverage Notice Reviewer: [id number] Crissy Elizabeth Notice Issued Date-Time: 08/09/2018 12:11 Notice Type: Patient Choice Letter Notice Delivered To: Patient Relationship to Patient: House Supervisor Name: Delivery Method: - Tuyet Days: Prior Verbal Notification: Recipient Understood Notice: Yes Recipient Signature: Yes Med Rec Note Co-signed by Attending: Coverage Notice Comment: 1)INPATIENT REHAB 2) [facility] Reviewer: [id number] Crissy Elizabeth Notice Issued Date-Time: 08/11/2018 14:20 Notice Type: IM Discharge Notice Notice Delivered To: Patient Relationship to Patient: House Supervisor Name: Delivery Method: HAND - Hand Delivered Tuyet Days: Prior Verbal Notification: Recipient Understood Notice: Yes Recipient Signature: Yes Med Rec Note Co-signed by Attending: Coverage Notice Comment: Last DP export: 08/11/18 1:39 pm Patient Name: CONNIE MCCRAY Page 26749 at 1346 All edits/amendments must be made on the electronic document DICTATION DATE: 08/15/18 1345 MARINE OIL TERMINAL SUPERINTENDENT: CINDY 08/15/18 1345 RPT#: [id number] DC DATE:08/11/18 STATUS: DIS IN [facility] [address] [place] [address] END OF REPORT
== END 2018-08-11 18:40 | DRG 299 ==
LOC: D.ER 11:02 → D.M3 14:12 → D.EDHOLD 14:12 → D.M3 18:15 → D.ICU 08-06 04:55 → D.MS 08-07 16:49
PROVIDERS: Family Medicine; ADMIT Internal Medicine Nephrology; ATTEND Internal Medicine Nephrology
DX: I83.225 Varicose veins of left lower extremity with both ulcer other part of foot and inflammation (principal); I50.33 Acute on chronic diastolic (congestive) heart failure; J18.1 Lobar pneumonia, unspecified organism; J96.92 Respiratory failure, unspecified with hypercapnia; R40.2314 Coma scale, best motor response, none, 24 hours or more after hospital admission; R40.2114 Coma scale, eyes open, never, 24 hours or more after hospital admission; R40.2214 Coma scale, best verbal response, none, 24 hours or more after hospital admission; L03.115 Cellulitis of right lower limb; I13.0 Hypertensive heart and chronic kidney disease with heart failure and stage 1 through stage 4 chronic kidney disease, or unspecified chronic kidney disease; J98.11 Atelectasis; J96.11 Chronic respiratory failure with hypoxia; Z68.41 Body mass index [BMI] 40.0-44.9, adult; J44.0 Chronic obstructive pulmonary disease with (acute) lower respiratory infection; L03.116 Cellulitis of left lower limb; L97.529 Non-pressure chronic ulcer of other part of left foot with unspecified severity; I87.8 Other specified disorders of veins; D50.9 Iron deficiency anemia, unspecified; E11.22 Type 2 diabetes mellitus with diabetic chronic kidney disease; N18.9 Chronic kidney disease, unspecified; E78.5 Hyperlipidemia, unspecified; E66.9 Obesity, unspecified; E03.9 Hypothyroidism, unspecified

== ENCOUNTER 2018-08-11 16:51 | Inpatient (IN) | payer MEDICARE ==
[~2018-08-11] VITALS: Ht 175.3 cm; Wt 126.6 kg
[~2018-08-11 16:51] MED LIST changes: +BACLOFEN10 MG PO; +BREO ELLIPTA 11 EACH INH; +COLACE100 MG PO; +FERGON 240 MG240 MG PO; +FLORAJEN3 CAPS460 MG PO; +FUROSEMIDE40 MG PO; +GLUCOPHAGE500 MG PO; +HUMULIN R100 U/ML SC; +K-DUR20 MEQ PO; +Lovenox INJ SC; +MIRALAX17 GM PO; +PROTONIX40 MG PO; +SINGULAIR10 MG PO; +SYNTHROID50 MCG PO; +XOPENEX 1.1.25 MG/3 UPD
[2018-08-11 19:00] VITALS: BP 144/64
[2018-08-11 21:26] VITALS: BP 144/64; BMI 41.3
[2018-08-12 07:21] LABS: BASOPHILS 0.4 % (0-2); EOSINOPHILS 5.8 % (0-7); HEMATOCRIT 37.7 % (42.0-54.0); HEMOGLOBIN 11.4 g/dL (13.5-17.5); IMMATURE GRANULOCYTES 0.4 % (0-5); LYMPHOCYTES 37.4 % (15-50); MCH 28.9 pg (26.0-34.0); MCHC 30.2 g/dL (31.0-37.0); MCV 95.7 fL (80.0-100.0); MEAN PLATELET VOLUME 10.3 fL (7.4-10.4); MONOCYTES 6.6 % (2-11); NEUTROPHILS 49.4 % (40-80); PLATELET COUNT 293 10x3/uL (130-400); RBC 3.94 10x6/uL (4.20-6.10); RDW 15.2 % (11.5-14.5); WBC 9.2 10x3/uL (4.8-10.8)
[2018-08-12 07:29] LABS: ANION GAP 4.6 mmol/L (8-16); CALCIUM 9.2 mg/dL (8.5-10.1); CARBON DIOXIDE 39.6 mmol/L (21.0-32.0); CREATININE - SERUM 1.2 mg/dL (0.6-1.3); POTASSIUM - SERUM 4.2 mmol/L (3.5-5.1)
[2018-08-12 08:00] VITALS: BP 101/52
[2018-08-12 10:59] VITALS: BMI 41.2
[2018-08-12 20:00] VITALS: BP 114/57
[2018-08-13 08:00] VITALS: BP 108/56
[2018-08-13 19:34] VITALS: BP 103/57
[2018-08-14 08:00] VITALS: BP 110/57
[2018-08-14 22:47] VITALS: BP 104/62
[2018-08-15 08:00] VITALS: BP 110/45
[2018-08-15 08:36] LABS: BASOPHILS 0.5 % (0-2); EOSINOPHILS 4.6 % (0-7); HEMATOCRIT 38.6 % (42.0-54.0); HEMOGLOBIN 11.8 g/dL (13.5-17.5); IMMATURE GRANULOCYTES 0.3 % (0-5); LYMPHOCYTES 34.6 % (15-50); MCH 28.9 pg (26.0-34.0); MCHC 30.6 g/dL (31.0-37.0); MCV 94.4 fL (80.0-100.0); MEAN PLATELET VOLUME 10.5 fL (7.4-10.4); MONOCYTES 6.7 % (2-11); NEUTROPHILS 53.3 % (40-80); PLATELET COUNT 274 10x3/uL (130-400); RBC 4.09 10x6/uL (4.20-6.10); RDW 15.6 % (11.5-14.5); WBC 9.2 10x3/uL (4.8-10.8)
[2018-08-15 08:49] LABS: CALCIUM 9.5 mg/dL (8.5-10.1); CARBON DIOXIDE 39.9 mmol/L (21.0-32.0); CREATININE - SERUM 1.3 mg/dL (0.6-1.3); POTASSIUM - SERUM 3.9 mmol/L (3.5-5.1)
--- NOTE | 2018-08-15 09:58 | RHP ---
PATIENT: CONNIE MCCRAY MEDICAL RECORD: [id number] ACCOUNT: [id number] LOCATION:[facility]1117 : [birth year] ADMISSION DATE: 08/11/18 REHABILITATION HISTORY AND PHYSICAL EXAMINATION POST ADMISSION PHYSICIAN EXAMINATION ADMITTING DIAGNOSIS: Disuse myopathy. HISTORY OF PRESENT ILLNESS: The patient is a 73-year-old gentleman who is admitted to rehab with a working diagnosis of disuse myopathy. He is morbidly obese, got a history of hypertension; hyperlipidemia; diabetes, which has been newly diagnosed; hypothyroidism. He wears O2 at home secondary to COPD, presented on 08/02/2018 with increasing weakness, inability to ambulate, been present for about 3-4 weeks. Stated that over the previous couple of weeks, he had having swelling in both legs, unable to ambulate secondary to pain and swelling, and was diagnosed with diabetes and hypothyroidism, admitted to [facility] for this. He is currently being monitored for his electrolytes. Monitoring his blood sugar. He is on a sliding scale. He is on telemetry. He has got shortness of breath, dyspnea on exertion. He is requiring supplemental O2. He has proximal muscle weakness, impaired mobility, deconditioning, debility. He is high fall for risk and has self-care deficit. These are all barriers to his discharge at this time. He lives at home with his . He is moderately independent with his mobility with using a rolling walker. He was only using it on occasion. He was independent with most of the ADLs. He is currently set up for mod assist to total assist for mobility and max assist with ADLs. He and his plan for him to return home hopefully at his prior level of functioning or better if possible. COMORBIDITIES: In this patient include bilateral cellulitis, microcytic anemia, acute, myopathy, acute kidney injury, hypertension, hyperlipidemia, diabetes mellitus, disuse myopathy, obesity. He has got some noted effusions. He has got type 2 diabetes, yrqoq-eb-rgjavdi diastolic heart failure, and pleural effusions once again. PAST MEDICAL HISTORY: Significant for CHF, edema, COPD, asthma. He had a history of pneumonia, home O2 dependence, restless legs, cataracts, diabetes, hypertension, and prostate problems. PAST SURGICAL HISTORY: Includes a left knee replacement, a cervical fusion with plate, cataract removal, inguinal hernia repair, tonsillectomy, removal of foreign body and right shoulder replacement. ALLERGIES: BACLOFEN. CURRENT MEDICATIONS: Include Synthroid 50 mcg daily, potassium 20 mEq daily and multivitamin daily. He is on Metformin 500 mg b.i.d. with meals. He is on Lovenox 30 mg subQ daily, Xopenex 1.25 mg q.6 hours p.r.n., Floranex daily. He is on Breo Ellipta 1 puff daily. He is on Proscar 5 mg daily. He is on a B12 replacement daily. He is on vitamin D 2000 units daily, carvedilol 6.25 mg b.i.d. with meals. He is on a glucose replacement protocol, tramadol 50 mg q.6 hours p.r.n., Requip 4 mg at bedtime, Pravachol 40 mg at bedtime, MiraLax 17 grams in 8 ounces of water b.i.d., Protonix 40 mg daily, Singulair 10 mg at bedtime. He is on a low-resistant sliding scale. He is on furosemide 40 mg b.i.d., omega 3 one cap b.i.d., ferrous sulfate 324 b.i.d., Colace 100 mg b.i.d., and Ventolin updrafts. HISTORY AND PHYSICAL [id number] CONNIE MCCRAY HABITS: No current alcohol or tobacco use. FAMILY HISTORY: Noncontributory. SOCIAL HISTORY: The patient hopes to return back home and get back to his prior level of functioning. REVIEW OF SYSTEMS: GENERAL: He does complain of weakness and fatigue. HEENT: Denies cold, cough, or congestion. CARDIOVASCULAR: He denies chest pain. PHYSICAL EXAMINATION: VITAL SIGNS: Stable, afebrile. GENERAL: A morbidly obese gentleman, in no acute distress, alert upon exam. HEENT: Normocephalic and atraumatic. Mucosa moist. NECK: Supple without adenopathy. LUNGS: Clear in upper cobb. He does have decreased breath sounds in both bases. HEART: Regular rate and rhythm. No murmurs, rubs or gallops. ABDOMEN: Obese, nontender, nondistended, positive bowel sounds times 4. EXTREMITIES: Does have some changes with venous stasis and also with edema. NEUROLOGIC: He does have noted weakness, especially proximal. LABORATORY DATA: White count is 9.2, H&H of 11 and 37, and platelet count was noted to be 293. Sodium is 141, potassium 4.2, BUN and creatinine of 20 and 1.2, and blood sugar is noted to be 119. ASSESSMENT: This is a 73-year-old gentleman admitted to rehab with a working diagnosis of disuse myopathy complicated by newly diagnosed diabetes and also hypothyroidism. The patient has potential to make improvement. We instituted the following multidisciplinary therapies include, but not limited to physical, occupational, respiratory, speech, nutritional services, prosthetics and orthotics. Given his complex medical condition and risk for more complications, rehabilitation services cannot be provided at a low level of care such as skilled nurse facility. PLAN: 1. Admit to [facility] for inpatient therapy to include the following disciplines: A. Physical therapy to improve gait, all transfer skills and bed mobility to a modified independent level. B. Occupational therapy to improve activities of daily living to a modified independent level. C. Case management to assist with discharge planning and placement options. D. Nutrition to assist with nutritional needs. E. Rehabilitation nursing to assist in monitoring the patient's underlying medical conditions and to assist with any type of bowel or bladder management. 2. The patient's current medications and medical care will be continued. 3. We will continue on DVT and also GI prophylaxis during his stay and I am going to see again in the a.m. TRANSINT:[id number] Voice Confirmation ID: [id number] DOCUMENT ID: [id number] HISTORY AND PHYSICAL [id number] CONNIE MCCRAY notes whether there has been none or any medical/functional change since admission: - No change since pre-admission kleber. COLLETTE attests patient continues to be appropriate for IRF: - Continues to be appropriate. LOUANN BARNEY MD at 0958 CC: [id number] DICTATION DATE: 08/12/18 0855 SECURITY ASSESSOR: 08/12/18 1001 ADM IN [facility] [address] [place] [address]
[2018-08-15 19:00] VITALS: BP 117/63
[2018-08-16 08:00] VITALS: BP 109/51
[2018-08-16 19:00] VITALS: BP 126/52
[2018-08-17 07:59] LABS: ANION GAP 8.7 mmol/L (8-16); CALCIUM 9.3 mg/dL (8.5-10.1); CREATININE - SERUM 1.2 mg/dL (0.6-1.3); POTASSIUM - SERUM 3.7 mmol/L (3.5-5.1)
[2018-08-17 08:10] LABS: BASOPHILS 0.3 % (0-2); EOSINOPHILS 4.6 % (0-7); HEMOGLOBIN 11.6 g/dL (13.5-17.5); IMMATURE GRANULOCYTES 0.2 % (0-5); LYMPHOCYTES 33.8 % (15-50); MCH 28.8 pg (26.0-34.0); MCHC 30.5 g/dL (31.0-37.0); MCV 94.3 fL (80.0-100.0); MONOCYTES 7.4 % (2-11); NEUTROPHILS 53.7 % (40-80); PLATELET COUNT 261 10x3/uL (130-400); RBC 4.03 10x6/uL (4.20-6.10); RDW 15.8 % (11.5-14.5); WBC 9.1 10x3/uL (4.8-10.8)
[2018-08-17 13:46] VITALS: Ht 175.3 cm; Wt 126.6 kg
[2018-08-17 14:01] VITALS: BP 105/63
[2018-08-17 19:00] VITALS: BP 114/54
[2018-08-18 08:00] VITALS: BP 136/64
[2018-08-18 19:00] VITALS: BP 113/54
[2018-08-19 06:37] LABS: CALCIUM 8.9 mg/dL (8.5-10.1); CARBON DIOXIDE 35.6 mmol/L (21.0-32.0); CREATININE - SERUM 1.4 mg/dL (0.6-1.3); POTASSIUM - SERUM 3.6 mmol/L (3.5-5.1)
[2018-08-19 07:33] LABS: HEMATOCRIT 36.5 % (42.0-54.0); HEMOGLOBIN 11.6 g/dL (13.5-17.5); LYMPHOCYTES 31.4 % (15-50); MCH 29.4 pg (26.0-34.0); MCHC 31.8 g/dL (31.0-37.0); MCV 92.4 fL (80.0-100.0); MEAN PLATELET VOLUME 11.2 fL (7.4-10.4); NEUTROPHILS 58.4 % (40-80); PLATELET COUNT 232 10x3/uL (130-400); RBC 3.95 10x6/uL (4.20-6.10); RDW 14.7 % (11.5-14.5); WBC 9.4 10x3/uL (4.8-10.8)
[2018-08-19 08:00] VITALS: BP 108/60
[2018-08-19 20:00] VITALS: BP 127/64
[2018-08-20 07:29] VITALS: BP 126/60
[2018-08-20 19:04] VITALS: BP 119/54
[2018-08-21 08:39] VITALS: BP 124/63
[2018-08-21 18:54] VITALS: BP 131/62
[2018-08-22 06:37] LABS: BASOPHILS 0.3 % (0-2); EOSINOPHILS 3.7 % (0-7); HEMATOCRIT 37.4 % (42.0-54.0); HEMOGLOBIN 11.7 g/dL (13.5-17.5); IMMATURE GRANULOCYTES 0.1 % (0-5); LYMPHOCYTES 33.3 % (15-50); MCH 29.1 pg (26.0-34.0); MCHC 31.3 g/dL (31.0-37.0); MEAN PLATELET VOLUME 11.1 fL (7.4-10.4); MONOCYTES 7.4 % (2-11); NEUTROPHILS 55.2 % (40-80); PLATELET COUNT 239 10x3/uL (130-400); RBC 4.02 10x6/uL (4.20-6.10); RDW 15.6 % (11.5-14.5); WBC 8.9 10x3/uL (4.8-10.8)
[2018-08-22 06:52] LABS: ANION GAP 5.6 mmol/L (8-16); CALCIUM 9.4 mg/dL (8.5-10.1); CARBON DIOXIDE 37.8 mmol/L (21.0-32.0); CREATININE - SERUM 1.3 mg/dL (0.6-1.3); POTASSIUM - SERUM 3.4 mmol/L (3.5-5.1)
[2018-08-22 08:01] VITALS: BP 117/48
[2018-08-22 19:00] VITALS: BP 110/57
[2018-08-23 06:12] VITALS: BP 97/43
[2018-08-23 07:34] VITALS: BP 123/57
[2018-08-23 19:00] VITALS: BP 129/63
[2018-08-24 08:36] VITALS: BP 130/64
[2018-08-24 08:47] LABS: BASOPHILS 0.3 % (0-2); EOSINOPHILS 4.2 % (0-7); HEMATOCRIT 37.5 % (42.0-54.0); HEMOGLOBIN 11.6 g/dL (13.5-17.5); IMMATURE GRANULOCYTES 0.2 % (0-5); LYMPHOCYTES 29.1 % (15-50); MCH 28.9 pg (26.0-34.0); MCHC 30.9 g/dL (31.0-37.0); MCV 93.3 fL (80.0-100.0); MEAN PLATELET VOLUME 10.9 fL (7.4-10.4); MONOCYTES 6.2 % (2-11); PLATELET COUNT 241 10x3/uL (130-400); RBC 4.02 10x6/uL (4.20-6.10); RDW 15.5 % (11.5-14.5); WBC 9.2 10x3/uL (4.8-10.8)
[2018-08-24 08:59] LABS: CALCIUM 9.1 mg/dL (8.5-10.1); CARBON DIOXIDE 37.5 mmol/L (21.0-32.0); CREATININE - SERUM 1.3 mg/dL (0.6-1.3); POTASSIUM - SERUM 3.5 mmol/L (3.5-5.1)
[2018-08-24 19:00] VITALS: BP 117/60
[2018-08-25 08:00] VITALS: BP 113/58
[2018-08-25 19:48] VITALS: BP 115/58
[2018-08-26 05:59] LABS: BASOPHILS 0.4 % (0-2); EOSINOPHILS 5.6 % (0-7); HEMATOCRIT 38.6 % (42.0-54.0); HEMOGLOBIN 12.1 g/dL (13.5-17.5); IMMATURE GRANULOCYTES 0.2 % (0-5); MCH 29.4 pg (26.0-34.0); MCHC 31.3 g/dL (31.0-37.0); MCV 93.7 fL (80.0-100.0); MEAN PLATELET VOLUME 10.8 fL (7.4-10.4); MONOCYTES 6.4 % (2-11); NEUTROPHILS 53.4 % (40-80); PLATELET COUNT 253 10x3/uL (130-400); RBC 4.12 10x6/uL (4.20-6.10); RDW 15.7 % (11.5-14.5); WBC 8.1 10x3/uL (4.8-10.8)
[2018-08-26 06:14] LABS: ANION GAP 8.4 mmol/L (8-16); CALCIUM 9.3 mg/dL (8.5-10.1); CARBON DIOXIDE 36.2 mmol/L (21.0-32.0); CREATININE - SERUM 1.3 mg/dL (0.6-1.3); POTASSIUM - SERUM 3.6 mmol/L (3.5-5.1)
[2018-08-26 08:14] VITALS: BP 119/62
== END 2018-08-26 12:29 | disposition home health service (06) | DRG 91 ==
LOC: D.REHAB 16:51
PROVIDERS: ADMIT Emergency Medicine; ATTEND Emergency Medicine
DX: G72.89 Other specified myopathies (principal); I50.33 Acute on chronic diastolic (congestive) heart failure; L03.116 Cellulitis of left lower limb; L03.115 Cellulitis of right lower limb; N17.9 Acute kidney failure, unspecified; J96.11 Chronic respiratory failure with hypoxia; E66.01 Morbid (severe) obesity due to excess calories; E78.5 Hyperlipidemia, unspecified; E03.9 Hypothyroidism, unspecified; J44.9 Chronic obstructive pulmonary disease, unspecified; D50.9 Iron deficiency anemia, unspecified; I11.0 Hypertensive heart disease with heart failure; M75.42 Impingement syndrome of left shoulder; M19.012 Primary osteoarthritis, left shoulder; E11.65 Type 2 diabetes mellitus with hyperglycemia

== ENCOUNTER → 2018-09-29 13:00 | Outpatient (CLI) | payer MEDICARE ==
[2018-08-17 13:46] VITALS: BMI 41.2
[2018-09-29 14:22] LABS: APPEARANCE CLEAR (CLEAR); COLOR YELLOW (YELLOW); SPECIFIC GRAVITY 1.005 (1.005-1.020)
[2018-09-29 14:23] LABS: BILIRUBIN NEGATIVE (NEGATIVE); GLUCOSE NEGATIVE (NEGATIVE); KETONE NEGATIVE (NEGATIVE); NITRITE NEGATIVE (NEGATIVE); PROTEIN NEGATIVE (NEGATIVE); UROBILINOGEN NORMAL (NORMAL)
== END | disposition home or self-care (01) ==
LOC: D.LABREF 13:00
PROVIDERS: ATTEND Family Medicine
DX: R30.0 Dysuria (principal)

== ENCOUNTER 2019-06-29 13:10 | Inpatient (IN) | payer MEDICARE ==
[~2019-06-29] VITALS: Ht 175.3 cm; Wt 119.1 kg
[2019-06-29] MEDS ORDERED: PROSCAR5 MG PO (13:19)
[2019-06-29] MEDS ORDERED: GLUCOPHAGE1000 MG PO (13:20)
[2019-06-29] MEDS ORDERED: FERROUS SULFAT325 MG PO (13:21)
[2019-06-29 13:48] LABS: BASOPHILS 0.2 % (0-2); EOSINOPHILS 2.3 % (0-7); HEMATOCRIT 37.8 % (42.0-54.0); HEMOGLOBIN 11.1 g/dL (13.5-17.5); IMMATURE GRANULOCYTES 0.2 % (0-5); LYMPHOCYTES 21.4 % (15-50); MCH 29.2 pg (26.0-34.0); MCHC 29.4 g/dL (31.0-37.0); MCV 99.5 fL (80.0-100.0); MONOCYTES 5.1 % (2-11); NEUTROPHILS 70.8 % (40-80); PLATELET COUNT 224 10x3/uL (130-400); RDW 14.3 % (11.5-14.5); WBC 8.9 10x3/uL (4.8-10.8)
[2019-06-29 14:17] LABS: ALBUMIN 2.7 g/dL (3.4-5.0); ALKALINE PHOSPHATASE 80 U/L (30-120); ALT (SGPT) 17 U/L (10-68); CALC OSMOLALITY 296 mosm/kg (275-300); CHLORIDE - SERUM 104 mmol/L (98-107); CKMB 1.3 U/L (0.0-3.6); CREATINE KINASE 63 UL (21-232); CREATININE - SERUM 1.2 mg/dL (0.6-1.3); GLUCOSE 167 mg/dL (74-106); POTASSIUM - SERUM 4.4 mmol/L (3.5-5.1); PRO BNP 467 pg/mL (0-450); PROTEIN - SERUM 7.3 g/dL (6.4-8.2); SODIUM 144 mmol/L (136-145); UREA NITROGEN 29 mg/dL (7-18); eGFR NON AFRICAN AMERICAN 63 mL/min (90-120)
[2019-06-29 14:21] LABS: TROPONIN-I < 0.017 ng/mL (0.000-0.060)
--- NOTE | 2019-06-29 14:21 | NUR ---
critical co2 of 41.[address] leonard
[2019-06-29 14:56] LABS: INR 1.02 (0.85-1.17); PROTIME 13.3 SECONDS (11.6-15.0)
[2019-06-29 14:57] LABS: APTT 31.3 SECONDS (22.8-39.4)
[2019-06-29 15:47] LABS: BILIRUBIN NEGATIVE (NEGATIVE); GLUCOSE 50 mg/dL (NEGATIVE); KETONE NEGATIVE (NEGATIVE); NITRITE NEGATIVE (NEGATIVE); UROBILINOGEN NORMAL (NORMAL)
[2019-06-29 15:48] LABS: BACTERIA FEW /hpf (NEGATIVE); EPITHELIAL CELLS 0-5 /hpf (0-5); WHITE CELLS - URINE OCC /hpf (NEGATIVE)
--- NOTE | 2019-06-29 15:51 | NUR ---
PT BLE +4 AND GREATER. BLE PRESENT WITH EXTENSIVE S/S OF PAD AND PVD INCLUDING VENOUS INSUFFICIENCY, SWELLING, ERYTHEMA, TENDERNESS, VARIOUS SIGNS OF HEALED SORES, AND DRY/CHAFFED SKIN. CAP REFILL > 5 SECONDS
--- NOTE | 2019-06-29 16:20 | NUR ---
PT HAS NOT HAD ANYTHING TO EAT SINCE EARLY AM AND DID NOT WANT TO CAUSE BLOOD SUGAR TO DROP TO LOW.
[2019-06-29 16:33] VITALS: BP 141/75
--- NOTE | 2019-06-29 17:50 | NUR ---
message received from jeromy that pt can go to room 2212 but room is dirty. they will let me know when room is ready.
[2019-06-29 20:00] VITALS: BP 138/65
--- NOTE | 2019-06-29 20:00 | NUR ---
PT BROUGHT TO FLOOR VIA STRETCHER. TRANSFERED TO BED. AOX4. PT PROVIDED URINAL, SANDWICH AND LEMON UGASHIK SODA. ASSESSMENT COMPLETE AT THIS TIME. BLE RED AND SWOLLEN WITH DRY-CRACKING SKIN. RIGHT LEG 3+, LEFT LEG 4+ AND WEEPING. DENIES NEEDS AT THIS TIME. CL IN REACH, WILL CTM
[2019-06-29] MEDS ORDERED: LASIX40 MG PO (21:29)
--- NOTE | 2019-06-29 21:30 | NUR ---
FSBS 176, COVERAGE PER SS. BIPAP PLACED ON PT. DENIES FURTHER NEEDS. CLAUDIO BINGHAM
[2019-06-30] VITALS: BP 115/65
[2019-06-30 04:00] VITALS: BP 122/57
[2019-06-30 04:14] LABS: BASOPHILS 0.1 % (0-2); EOSINOPHILS 1.3 % (0-7); HEMATOCRIT 36.8 % (42.0-54.0); IMMATURE GRANULOCYTES 0.3 % (0-5); LYMPHOCYTES 18.6 % (15-50); MCH 29.7 pg (26.0-34.0); MCHC 29.9 g/dL (31.0-37.0); MCV 99.5 fL (80.0-100.0); MEAN PLATELET VOLUME 10.4 fL (7.4-10.4); MONOCYTES 6.4 % (2-11); NEUTROPHILS 73.3 % (40-80); PLATELET COUNT 234 10x3/uL (130-400); RDW 14.1 % (11.5-14.5)
[2019-06-30 04:22] LABS: WBC 11.7 10x3/uL (4.8-10.8)
[2019-06-30 04:38] LABS: ALBUMIN 2.7 g/dL (3.4-5.0); BILIRUBIN - TOTAL 0.3 mg/dL (0.2-1.3); CREATININE - SERUM 1.1 mg/dL (0.6-1.3); MAGNESIUM - SERUM 1.9 mg/dL (1.8-2.4); PHOSPHOROUS 3.1 mg/dL (2.5-4.9); POTASSIUM - SERUM 3.9 mmol/L (3.5-5.1); PROTEIN - SERUM 6.9 g/dL (6.4-8.2)
[2019-06-30 04:42] VITALS: BMI 37.0
[2019-06-30 04:46] LABS: ANION GAP 1.6 mmol/L (8-16); CARBON DIOXIDE 43.3 mmol/L (21.0-32.0)
--- NOTE | 2019-06-30 05:45 | NUR ---
FSBS 128, NO COVERAGE PER SS
[2019-06-30 09:48] VITALS: BP 134/59
[2019-06-30 11:48] VITALS: Ht 175.3 cm; Wt 119.1 kg
[2019-06-30 13:40] VITALS: BP 132/68
[2019-06-30 16:28] VITALS: BP 137/59
--- NOTE | 2019-06-30 18:45 | NUR ---
PATIENT IN BED WITH IV INTACT. NO COMPLAINTS OR SIGNS OF DISTRESS. SITTING UP ON THE SIDE OF THE BED. O2 ON. FAMILY AT BEDSIDE. CALL LIGHT WITHIN REACH.
--- NOTE | 2019-06-30 19:15 | NUR ---
BEDSIDE REPORT RECEIVED. PATIENT ALERT AND ORIENTED SITTING ON SIDE OF THAT BED. PATIENT HAS RIGHT FA IV THAT IS SALINE LOCKED. RT WRIST THAT IS SALINE LOCKED. AND LEFT CHEST THE IS SALINE LOCKED. RIGHT PINKY SPLIT. PATIENT STATES "IT'S A KNUCKLE INJURY FROM MY YOUNGER YEARS." PATIENT HAS DIMINSHED BREATH SOUNDS BILATERALY. WEARING 9L VIA HFC. DIMINSHED BREATH SOUNDS BILATERALLY. BILATERAL LOWER EXTREMETIES WITH REDNESS, SCABS, AND SORES. USES URINAL FOR VOIDING. CALL LIGHT IN REACH. CPOC.
--- NOTE | 2019-06-30 23:03 | NUR ---
CALLED PRACTICE ARCHITECT ABOUT NEW ORDERS AND NEEDING ABX
[2019-06-30 23:11] LABS: BILIRUBIN NEGATIVE (NEGATIVE); GLUCOSE 50 mg/dL (NEGATIVE); KETONE NEGATIVE (NEGATIVE); NITRITE NEGATIVE (NEGATIVE); RED CELLS - URINE 0-5 /hpf (0-5); SPECIFIC GRAVITY 1.005 (1.005-1.020); UROBILINOGEN NORMAL (NORMAL); WHITE CELLS - URINE NSEEN /hpf (NEGATIVE)
[2019-07-01 04:00] VITALS: BP 131/69
--- NOTE | 2019-07-01 06:26 | NUR ---
PAGED DR. MTZ IN REFERENCE TO CRITICAL CO2
--- NOTE | 2019-07-01 06:32 | NUR ---
I have reviewed this patient and I concur with the Shift Assessment completed by the Licensed Practical Nurse today this shift.
--- NOTE | 2019-07-01 06:36 | NUR ---
DR. MTZ RETURNED PHONE PAGED. REVIEWED RESULTS WITH DR. HE STATED THAT THE PATIENT NEEDS TO WEAR HIS BIPAP 4 HOURS ON AND 4 HOURS OFF. NOTIFIED RT DERIC OF THIS WELL SHE IS THE RT TAKING OVER FOR THE DAY. WILL PASS IN REPORT. CPOC.
--- NOTE | 2019-07-01 07:15 | NUR ---
REC'D IN BED WITH NO DISTRESS NOTED. CAN EXPRESS NEEDS AND WANTS. NO C/O NOTED AT THIS TIME. ASSISTING GIVEN TO SIT ON SIDE OF BED. BI-PAP IS TO BE ON 4 HOURS AND THEN OFF 4 HOURS. ASSESSMENT COMPLETED. C/L IN REACH AT BEDSIDE.
[2019-07-01 07:22] LABS: BASOPHILS 0.1 % (0-2); EOSINOPHILS 0.2 % (0-7); HEMATOCRIT 37.2 % (42.0-54.0); HEMOGLOBIN 10.9 g/dL (13.5-17.5); IMMATURE GRANULOCYTES 0.4 % (0-5); MCH 29.1 pg (26.0-34.0); MCHC 29.3 g/dL (31.0-37.0); MCV 99.2 fL (80.0-100.0); MEAN PLATELET VOLUME 10.5 fL (7.4-10.4); NEUTROPHILS 88.3 % (40-80); PLATELET COUNT 235 10x3/uL (130-400); RBC 3.75 10x6/uL (4.20-6.10); RDW 14.5 % (11.5-14.5); WBC 10.9 10x3/uL (4.8-10.8)
[2019-07-01 07:41] LABS: ANION GAP 8.3 mmol/L (8-16); CALCIUM 8.9 mg/dL (8.5-10.1); CARBON DIOXIDE 39.4 mmol/L (21.0-32.0); CREATININE - SERUM 1.1 mg/dL (0.6-1.3); PHOSPHOROUS 3.6 mg/dL (2.5-4.9); POTASSIUM - SERUM 4.7 mmol/L (3.5-5.1)
[2019-07-01 08:28] VITALS: BP 144/73
[2019-07-01 14:07] VITALS: BP 138/70
--- NOTE | 2019-07-01 14:43 | NUR ---
I have reviewed this patient and I concur with the Shift Assessment completed by the Licensed Practical Nurse today this shift.
[2019-07-01 16:19] VITALS: BP 115/71
[2019-07-01 23:31] VITALS: BP 113/59
[2019-07-02 04:00] VITALS: BP 126/61
[2019-07-02 04:14] VITALS: BP 127/73
[2019-07-02 06:53] LABS: BASOPHILS 0 % (0-2); EOSINOPHILS 0 % (0-7); HEMATOCRIT 33.8 % (42.0-54.0); IMMATURE GRANULOCYTES 0.2 % (0-5); LYMPHOCYTES 9.3 % (15-50); MCH 28.9 pg (26.0-34.0); MCHC 29.6 g/dL (31.0-37.0); MCV 97.7 fL (80.0-100.0); MEAN PLATELET VOLUME 10.3 fL (7.4-10.4); MONOCYTES 2.9 % (2-11); NEUTROPHILS 87.6 % (40-80); PLATELET COUNT 252 10x3/uL (130-400); RBC 3.46 10x6/uL (4.20-6.10); RDW 14.1 % (11.5-14.5); WBC 10.5 10x3/uL (4.8-10.8)
--- NOTE | 2019-07-02 07:00 | NUR ---
PT RESTING IN BED WITH BIPAP ON, EYES CLOSED, EASILY AROUSED TO SPEECH. NO S/S OF DISTRESS NOTED AT THIS TIME, DENIES NEEDS, WILL CONT TO MONITOR.
[2019-07-02 07:13] LABS: ANION GAP 5.6 mmol/L (8-16); CALCIUM 8.9 mg/dL (8.5-10.1); CARBON DIOXIDE 38.9 mmol/L (21.0-32.0); CREATININE - SERUM 1.2 mg/dL (0.6-1.3); MAGNESIUM - SERUM 2.2 mg/dL (1.8-2.4); PHOSPHOROUS 3.1 mg/dL (2.5-4.9); POTASSIUM - SERUM 4.5 mmol/L (3.5-5.1)
[2019-07-02 09:15] VITALS: BP 121/67
[2019-07-02 12:27] VITALS: BP 107/53
--- NOTE | 2019-07-02 15:30 | NUR ---
6IN KERLEX DRESSING APPLIED TO LLE. WILL CONT TO MONITOR.
[2019-07-02 17:40] VITALS: BP 143/76
[2019-07-03] VITALS: BP 133/59
[2019-07-03 00:39] VITALS: BP 117/58
[2019-07-03 04:00] VITALS: BP 145/61
[2019-07-03 04:29] LABS: BASOPHILS 0 % (0-2); EOSINOPHILS 0 % (0-7); HEMATOCRIT 33.8 % (42.0-54.0); IMMATURE GRANULOCYTES 0.4 % (0-5); LYMPHOCYTES 8.7 % (15-50); MCHC 29.6 g/dL (31.0-37.0); MEAN PLATELET VOLUME 10.4 fL (7.4-10.4); MONOCYTES 3.6 % (2-11); NEUTROPHILS 87.3 % (40-80); PLATELET COUNT 277 10x3/uL (130-400); RBC 3.45 10x6/uL (4.20-6.10); RDW 14.3 % (11.5-14.5); WBC 10.8 10x3/uL (4.8-10.8)
[2019-07-03 05:02] LABS: ANION GAP 7.6 mmol/L (8-16); CALCIUM 9.3 mg/dL (8.5-10.1); CARBON DIOXIDE 36.2 mmol/L (21.0-32.0); CREATININE - SERUM 1.2 mg/dL (0.6-1.3); MAGNESIUM - SERUM 2.3 mg/dL (1.8-2.4); PHOSPHOROUS 2.9 mg/dL (2.5-4.9); POTASSIUM - SERUM 4.8 mmol/L (3.5-5.1)
--- NOTE | 2019-07-03 09:10 | NUR ---
BILATERAL LOWER LEGS HAVE COBBLESTONE APPEARANCE. THEY ARE DRY AND HARD TO THE TOUCH. THE LEFT IS EDEMATOUS AND IS WEEPING FROM OPEN AREAS ON LATERAL AND POSTERIOR ASPECT OF CALF. THESE AREAS ARE TENDER TO THE TOUCH. CLEANSED LEGS AND APPLIED ABD PAD AND WRAPPED WITH KERLIX FROM TOES TO BELOW KNEE. RIGHT LEG IS NOT WEEPING AND WAS LEFT OPEN TO AIR.
[2019-07-03 09:31] VITALS: BP 128/64
--- NOTE | 2019-07-03 13:40 | MORECARE ---
CASE MANAGEMENT DISCHARGE SUMMARY PATIENT: CONNIE MCCRAY UNIT: [id number] ADM DATE: 06/29/19 AGE: 74 : 43 SEX: M ROOM/BED: D.2213 AUTHOR: GEN FLORES PHYSICIAN: REFERRING PHYSICIAN: ARIELA CHARLES DO DATE OF SERVICE: 07/03/19 Discharge Plan Patient Name: CONNIE MCCRAY [facility] [facility] 1945 Planned Disposition: Home Anticipated Discharge Date: Discharge Date: Expected LOS: Initial Reviewer: [email or web address] Initial Review Date: 06/29/2019 Generated: 07/03/19 2:40 pm DCPIA - Discharge Planning Initial Assessment Updated by [email or web address]: Julita Elizabeth on 07/03/19 1:39 pm * Is the patient Alert and Oriented? Yes * How many steps to enter\exit or inside your home? * PCP ANA * Pharmacy [facility] * Preadmission Environment Home with Family * ADLs Independent * Equipment Nebulizer Oxygen Rolling Walker * List name and contact numbers for known caregivers / representatives who currently or will assist patient after discharge: DK (SPOUSE) [phone] * Verbal permission to speak to the caregivers and representatives has been obtained from the patient. N/A * Community resources currently utilized Other * Please name any agencies selected above. [facility] * Additional services required to return to the preadmission environment? Yes * Can the patient safely return to the preadmission environment? Yes * Has this patient been hospitalized within the prior 30 days at any hospital? No Patient Name: CONNIE MCCRAY Page [phone] at 1340 All edits/amendments must be made on the electronic document DICTATION DATE: 07/03/19 1340 AMPOULE WASHING MACHINE OPERATOR: CINDY 07/03/19 1340 RPT#: [id number] DC DATE: STATUS: ADM IN [facility] [address] [place] [address] END OF REPORT
--- NOTE | 2019-07-03 13:56 | MORECARE ---
CASE MANAGEMENT DISCHARGE SUMMARY PATIENT: CONNIE MCCRAY UNIT: [id number] ADM DATE: 06/29/19 AGE: 74 : 43 SEX: M ROOM/BED: D.2213 AUTHOR: MARKDOC PHYSICIAN: REFERRING PHYSICIAN: ARIELA CHARLES DO DATE OF SERVICE: 07/03/19 Discharge Plan Patient Name: CONNIE MCCRAY Facility: [facility]:[place] : 1945 Planned Disposition: Home Anticipated Discharge Date: Discharge Date: Expected LOS: Initial Reviewer: [email or web address] Initial Review Date: 06/29/2019 Generated: 07/03/19 2:55 pm Comments DCP- Discharge Planning Updated by [email or web address]: Julita Elizabeth on 07/03/19 12:[address] Patient Name: CONNIE MCCRAY Admission Status: ER Accout number: [id number] Admission Date: 06-29-2019 : 1945 Admission Diagnosis: Attending: ARIELA CHARLES Current LOS: 4 Anticipated DC Date: Planned Disposition: Home Primary Insurance: [facility] MEDICARE SOLUTIONS Discharge Planning Comments: CM met with patient to complete initial dc planning assessment. CM educated patient on the CM role and verbal consent given by patient to complete assessment. Patient lives at home with his spouse where he was independent with his care. At discharge patient plans to return home and feels this is a safe discharge. CM discussed availability of home health, rehab services, and medical equipment. He has home O2, portable, Concentrator, nebulizer, walker, shower chair and an electric wheelchair at home. KAIT with [facility]. Patient denied known discharge needs at this time. CM will continue to follow and will assist as needed with dc plans/needs. Silk Washing Machine Operator: Julita Elizabeth DCPIA - Discharge Planning Initial Assessment Updated by [email or web address]: Julita Elizabeth on 07/03/19 1:39 pm * Is the patient Alert and Oriented? Yes * How many steps to enter\exit or inside your home? * PCP PEREZ * Pharmacy [facility] * Preadmission Environment Home with Family * ADLs Independent * Equipment Nebulizer Oxygen Rolling Walker * List name and contact numbers for known caregivers / representatives who currently or will assist patient after discharge: DK (SPOUSE) [phone] * Verbal permission to speak to the caregivers and representatives has been obtained from the patient. N/A * Community resources currently utilized Other * Please name any agencies selected above. HOUSE CALL * Additional services required to return to the preadmission environment? Yes * Can the patient safely return to the preadmission environment? Yes * Has this patient been hospitalized within the prior 30 days at any hospital? No Coverage Notice Reviewer: [id number] Crissy Elizabeth Notice Issued Date-Time: 07/03/2019 13:20 Notice Type: Patient Choice Letter Notice Delivered To: Patient Relationship to Patient: Dumpster Driver Name: Delivery Method: HAND - Hand Delivered Tuyet Days: Prior Verbal Notification: Recipient Understood Notice: Yes Recipient Signature: Yes Med Rec Note Co-signed by Attending: Coverage Notice Comment: kait with candie OCAMPO export: 07/03/19 12:40 p Patient Name: CONNIE MCCRAY Page 50447 at 1356 All edits/amendments must be made on the electronic document DICTATION DATE: 07/03/19 1355 PLASTER MOLD MAKER: CINDY 07/03/19 1355 RPT#: [id number] DC DATE: STATUS: ADM IN [facility] [address] [place] [address] END OF REPORT
[2019-07-03 17:16] VITALS: BP 141/58
[2019-07-03 20:00] VITALS: BP 133/58
[2019-07-04] VITALS: BP 119/55
--- NOTE | 2019-07-04 03:18 | NUR ---
1930)REC'D CHGE OF SHIFT WALKING ROUNDS WITH DR IVEY AT BEDSIDE.02 9L NC HIGH FLOW.STATES SOB ON MINIMAL ACTIVITY.NO DISTRESS OBSERVED.ACEWRAP TO LLE RENESS SWELLING PRESENT WITH SOME NUMBNESS PRESENT.ENCOURAGED TO KEEP FEET ELEVATED TO AVOID INCREASE IN SWELLING. VOICES UNDERSTANDING.WILL CONTINUE TO MONITOR FOR ANY CHGES IN RESP, WELL NEUROVASCULAR STATUS AND FOLLOW CURRENT PLAN OF CARE.
[2019-07-04 04:00] VITALS: BP 123/53
[2019-07-04 05:32] LABS: BASOPHILS 0 % (0-2); EOSINOPHILS 0.2 % (0-7); HEMATOCRIT 33.4 % (42.0-54.0); HEMOGLOBIN 9.9 g/dL (13.5-17.5); IMMATURE GRANULOCYTES 0.6 % (0-5); LYMPHOCYTES 19.5 % (15-50); MCH 28.9 pg (26.0-34.0); MCHC 29.6 g/dL (31.0-37.0); MCV 97.4 fL (80.0-100.0); MEAN PLATELET VOLUME 10.4 fL (7.4-10.4); MONOCYTES 7.4 % (2-11); NEUTROPHILS 72.3 % (40-80); PLATELET COUNT 281 10x3/uL (130-400); RBC 3.43 10x6/uL (4.20-6.10); RDW 14.4 % (11.5-14.5); WBC 11.6 10x3/uL (4.8-10.8)
[2019-07-04 05:48] LABS: ANION GAP 5.1 mmol/L (8-16); CALCIUM 9.2 mg/dL (8.5-10.1); CARBON DIOXIDE 37.3 mmol/L (21.0-32.0); CREATININE - SERUM 1.1 mg/dL (0.6-1.3); MAGNESIUM - SERUM 2.5 mg/dL (1.8-2.4); PHOSPHOROUS 3.4 mg/dL (2.5-4.9); POTASSIUM - SERUM 4.4 mmol/L (3.5-5.1)
--- NOTE | 2019-07-04 06:00 | NUR ---
I have reviewed this patient and I concur with the Shift Assessment completed by the Licensed Practical Nurse today this shift.
--- NOTE | 2019-07-04 07:05 | NUR ---
PT RESTING IN BED. BIPAP IN PLACE. PT DENIES PAIN AT THIS TIME. SALINE LOC TO RIGHT FOREARM INTACT. SITE WITHOUT REDNESS OR EDEMA. CAYETANO WRAP TO BLE IN PLACE. PT DENIES FURTHER NEEDS AT THIS TIME. CL WITHIN REACH. ENCOURAGED TO CALL WITH NEEDS. CONTINUE POC
[2019-07-04 09:10] VITALS: BP 125/53
[2019-07-04 12:52] VITALS: BP 118/46
--- NOTE | 2019-07-04 14:12 | NUR ---
NUTRITION F/U PT TOLERATING DIABETIC DIET. 100% INTAKE RECENT MEALS. WILL CONTINUE TO PROVIDE DIET, MONITOR PO INTAKE. RD FOLLOWING
[2019-07-04 16:20] VITALS: BP 122/54
--- NOTE | 2019-07-04 17:50 | NUR ---
OT NOTE: PT REQUIRED MIN/MOD A WITH BED MOB TASKS. [phone] THANK YOU,JATINDER SALEH
[2019-07-04 20:00] VITALS: BP 94/64
[2019-07-05] VITALS: BP 133/66
--- NOTE | 2019-07-05 01:12 | NUR ---
I have reviewed this patient and I concur with the Shift Assessment completed by the Licensed Practical Nurse today this shift.
[2019-07-05 04:00] VITALS: BP 101/65
[2019-07-05 05:17] LABS: BASOPHILS 0 % (0-2); EOSINOPHILS 1.1 % (0-7); HEMATOCRIT 35.8 % (42.0-54.0); HEMOGLOBIN 11.1 g/dL (13.5-17.5); IMMATURE GRANULOCYTES 0.5 % (0-5); LYMPHOCYTES 21.9 % (15-50); MCH 30.4 pg (26.0-34.0); MCV 98.1 fL (80.0-100.0); MEAN PLATELET VOLUME 10.7 fL (7.4-10.4); MONOCYTES 8.4 % (2-11); NEUTROPHILS 68.1 % (40-80); PLATELET COUNT 282 10x3/uL (130-400); RBC 3.65 10x6/uL (4.20-6.10); RDW 14.3 % (11.5-14.5); WBC 12.2 10x3/uL (4.8-10.8)
[2019-07-05 05:19] LABS: ANION GAP 4.5 mmol/L (8-16); CALCIUM 9.4 mg/dL (8.5-10.1); CARBON DIOXIDE 37.5 mmol/L (21.0-32.0); CREATININE - SERUM 1.1 mg/dL (0.6-1.3); MAGNESIUM - SERUM 2.2 mg/dL (1.8-2.4); PHOSPHOROUS 2.8 mg/dL (2.5-4.9)
[2019-07-05 08:23] VITALS: BP 140/70
[2019-07-05 12:27] VITALS: BP 125/64
[2019-07-05 16:26] VITALS: BP 119/59
--- NOTE | 2019-07-05 17:14 | NUR ---
DRESSING CHANGE COMPLETED PER NURSE MESSAGE. CL IN REACH. NO NEEDS AT THIS TIME. WCTM
[2019-07-05 19:30] VITALS: BP 122/63
[2019-07-06] VITALS: BP 118/67
[2019-07-06 03:07] LABS: IMMUNOGLOBULIN E 1202 IU/mL (6-495)
[2019-07-06 04:00] VITALS: BP 121/72
[2019-07-06 06:33] LABS: BASOPHILS 0.1 % (0-2); EOSINOPHILS 1.5 % (0-7); HEMATOCRIT 39.6 % (42.0-54.0); IMMATURE GRANULOCYTES 0.6 % (0-5); LYMPHOCYTES 21.2 % (15-50); MCH 29.5 pg (26.0-34.0); MCHC 30.3 g/dL (31.0-37.0); MCV 97.3 fL (80.0-100.0); MEAN PLATELET VOLUME 10.6 fL (7.4-10.4); NEUTROPHILS 69.6 % (40-80); PLATELET COUNT 304 10x3/uL (130-400); RBC 4.07 10x6/uL (4.20-6.10); RDW 14.4 % (11.5-14.5); WBC 13.4 10x3/uL (4.8-10.8)
[2019-07-06 07:28] LABS: ANION GAP 11.5 mmol/L (8-16); CALCIUM 9.5 mg/dL (8.5-10.1); CARBON DIOXIDE 37.5 mmol/L (21.0-32.0); CREATININE - SERUM 1.2 mg/dL (0.6-1.3)
--- NOTE | 2019-07-06 08:00 | NUR ---
PATIENT ASSISTED TO BATHROOM AND BACK TO BED. SITTING ON SIDE OF BED. CL IN REACH. NO NEEDS AT THIS TIME. WCTM
--- NOTE | 2019-07-06 08:25 | NUR ---
I have reviewed this patient and I concur with the Shift Assessment completed by the Licensed Practical Nurse today this shift.
[2019-07-06 10:00] VITALS: BP 121/66
[2019-07-06 13:47] VITALS: BP 115/54
--- NOTE | 2019-07-06 14:18 | NUR ---
PATIENT SITTING ON SIDE OF BED. IN ROOM. QUESTIONS ANSWERED ABOUT CONTACT ISOLATION. CL IN REACH. TM
--- NOTE | 2019-07-06 15:05 | NUR ---
PATIENT REPOSITIONED TO RIGHT SIDE. STATES HE IS COMFORTABLE. CL IN REACH. BED ALARM AND POSSE ALARM ON. WCTM
[2019-07-06 18:09] VITALS: BP 124/55
--- NOTE | 2019-07-06 18:34 | NUR ---
DRESSING CHANGE COMPLETED PER ORDER. PATIENT TOLERATED WELL. NO FURTHER NEEDS AT THIS TIME. TM
--- NOTE | 2019-07-06 20:45 | NUR ---
SITTING UP ON SIDE OF BED. ALERT AND ORIENTED X4. RESP IRREG. O2 @ 5LHFC. TELEMETRY SHOWS SR WITH RATE OF 75. DENIES PAIN. STATES HE HAS HAD DIARRHEA TODAY. 3-4+ EDEMA NOTED TO BLE. DRSGS NOTED TO BLE. SALINE LOCK NOTED TO RT AC. DANIEL ALARM ON FOR PT SAFETY. AMB WITH ASSIST X1. CL IN REACH.
[2019-07-07] VITALS: BP 110/51
--- NOTE | 2019-07-07 02:44 | NUR ---
LYING IN BED WATCHING TV. CPAP IN USE. HASNT SLEPT MUCH TONIGHT. FREQUENT URINATION DUE TO LASIX. CL IN REACH. NO DISTRESS.
[2019-07-07 04:00] VITALS: BP 121/55
[2019-07-07 05:41] LABS: ANION GAP 9.2 mmol/L (8-16); CALCIUM 9.1 mg/dL (8.5-10.1); CARBON DIOXIDE 36.7 mmol/L (21.0-32.0); CREATININE - SERUM 1.3 mg/dL (0.6-1.3); POTASSIUM - SERUM 3.9 mmol/L (3.5-5.1)
[2019-07-07 05:50] LABS: BASOPHILS 0.1 % (0-2); EOSINOPHILS 0.1 % (0-7); HEMATOCRIT 37.8 % (42.0-54.0); HEMOGLOBIN 11.6 g/dL (13.5-17.5); IMMATURE GRANULOCYTES 0.5 % (0-5); LYMPHOCYTES 6.7 % (15-50); MCH 29.3 pg (26.0-34.0); MCHC 30.7 g/dL (31.0-37.0); MCV 95.5 fL (80.0-100.0); MEAN PLATELET VOLUME 10.8 fL (7.4-10.4); NEUTROPHILS 90.6 % (40-80); PLATELET COUNT 303 10x3/uL (130-400); RBC 3.96 10x6/uL (4.20-6.10); RDW 14.3 % (11.5-14.5); WBC 13.8 10x3/uL (4.8-10.8)
--- NOTE | 2019-07-07 08:45 | NUR ---
PATIENT SITTING UP ON SIDE OF BED. NO NEEDS AT THIS TIME. CL IN REACH. URINAL AND BEDSIDE TABLE IN REACH. POSSE ALARM ON. WCTM
[2019-07-07 09:30] VITALS: BP 108/54
[2019-07-07 13:50] VITALS: BP 137/66
--- NOTE | 2019-07-07 16:30 | NUR ---
IV THERAPY DC'ED FROM RIGHT AC. INFILTRATED AND LEAKING. TIP INTACT. IV THERAPY RESTARTED IN RIGHT WRIST WITH A 22 G ONE ATTEMPT. CL IN REACH. NO FURTHER NEEDS AT THIS TIME. WCTM
[2019-07-07 17:37] VITALS: BP 127/68
[2019-07-07 20:00] VITALS: BP 118/57
--- NOTE | 2019-07-07 20:00 | NUR ---
PATIENT SITTING ON SIDE OF BED. NO S/S OF ACUTE DISTRESS. NO C/O AT THIS TIME. PATIENT HAS 5L OF HIGH FLOW 02. PATIENT IS ON BIPAP AT NIGHT. PATIENT HAS RIGHT WRIST SALINE LOC. IV IS PATENT WITHOUT REDNESS, SWELLING, OR TENDERNESS. PATIENT IS ON TELEMETRY 78 BPM, NORMAL SINUS. PATIENT HAS WOUNDS TO BILATERAL LOWER LEGS AND DRESSINGS OVER THEM. DRESSING C/D/I. PATIENT HAS DANIEL ALARM IN PLACE. PATIENT IS UP WITH ASSIST AND WALKER TO BATHROOM. PATIENT IS ON CONTACT ISOLATION FOR POSSIBLE MRSA WITHIN THE LEG WOUNDS.
[2019-07-08] VITALS: BP 114/57
--- NOTE | 2019-07-08 03:40 | NUR ---
I have reviewed this patient and I concur with the Shift Assessment completed by the Licensed Practical Nurse today this shift.
[2019-07-08 06:44] LABS: BASOPHILS 0 % (0-2); EOSINOPHILS 0.1 % (0-7); HEMATOCRIT 37.8 % (42.0-54.0); HEMOGLOBIN 11.5 g/dL (13.5-17.5); IMMATURE GRANULOCYTES 0.5 % (0-5); LYMPHOCYTES 9.2 % (15-50); MCH 29.4 pg (26.0-34.0); MCHC 30.4 g/dL (31.0-37.0); MCV 96.7 fL (80.0-100.0); MEAN PLATELET VOLUME 11.2 fL (7.4-10.4); NEUTROPHILS 85.2 % (40-80); RBC 3.91 10x6/uL (4.20-6.10); RDW 14.6 % (11.5-14.5); WBC 15.3 10x3/uL (4.8-10.8)
[2019-07-08 06:52] LABS: PLATELET COUNT 218 10x3/uL (130-400)
[2019-07-08 07:06] LABS: ANION GAP 10.6 mmol/L (8-16); CALCIUM 9.2 mg/dL (8.5-10.1); CREATININE - SERUM 1.3 mg/dL (0.6-1.3)
[2019-07-08 07:11] LABS: POTASSIUM - SERUM 4.6 mmol/L (3.5-5.1)
[2019-07-08 08:48] VITALS: BP 125/72
[2019-07-08 13:01] VITALS: BP 116/65
--- NOTE | 2019-07-08 13:43 | NUR ---
RESTING IN BED, NO DISTRESS NOTED, FEET DOWN, ENC PT TO ELEVATE MUCH POSSIBLE, REMAINS IN ISOLATION
[2019-07-08 16:34] VITALS: BP 103/49
--- NOTE | 2019-07-08 19:15 | NUR ---
BEDSIDE REPORT RECEIVED. ASSUMED CARE OF PATIENT. PATIENT IS ALERT AND ORIENTED WATCHING TV WHEN ENTERING THE ROOM. PATIENT ANSWERS QUESTIONS APPROPRIATELY. WEARING 5L HFC AT THIS TIME. PATIENT HAS RIGHT WRIST/FOREARM IV THAT IS SALINE LOCKED. FLUSHED AND IT IS PATENT. PATIENT ON ISOLATION. PPE WORN PER PROTOCAL. COMPLAINS OF SLIGHT "NECK ACHE" RATES PAIN 3/10. DENIES PAIN MEDICINE. CALL LIGHT IN REACH. CPOC.
[2019-07-08 19:46] VITALS: BP 120/50
--- NOTE | 2019-07-08 21:15 | NUR ---
ADMINISTERED HS MEDICATIONS AND DIABETIC SNACK: JEANNINE CRACKERS. PATIENT REQUESTED VANILLA ICE CREAM, PROVIDED TO PATIENT. CPOC.
[2019-07-09] VITALS: BP 125/62
[2019-07-09 04:00] VITALS: BP 132/53
--- NOTE | 2019-07-09 07:10 | NUR ---
PT RESTING IN BED. NO SIGNS OF DISTRESS. IV TO LEFT FORARM PATENT NO REDNESS RO TENDERNESS. ON 5L NC. ON TELEMETRY 74 SR. DRESSING TO LOWER EXT. CLEAN AND INTACT. DENIES ANY FURTHER NEED AT THIS TIME. CALL LIGHT IN REACH. BED LOW POSITION. NO FAMILY AT BEDSIDE AT THIS TIME
[2019-07-09 07:50] LABS: BASOPHILS 0 % (0-2); EOSINOPHILS 0.1 % (0-7); HEMATOCRIT 40.3 % (42.0-54.0); HEMOGLOBIN 12.4 g/dL (13.5-17.5); IMMATURE GRANULOCYTES 0.6 % (0-5); LYMPHOCYTES 11.7 % (15-50); MCH 29.9 pg (26.0-34.0); MCHC 30.8 g/dL (31.0-37.0); MCV 97.1 fL (80.0-100.0); MEAN PLATELET VOLUME 10.5 fL (7.4-10.4); MONOCYTES 5.5 % (2-11); NEUTROPHILS 82.1 % (40-80); RBC 4.15 10x6/uL (4.20-6.10); RDW 14.4 % (11.5-14.5)
[2019-07-09 07:52] VITALS: BP 108/63
[2019-07-09 07:58] LABS: PLATELET COUNT 269 10x3/uL (130-400)
[2019-07-09 08:27] LABS: ANION GAP 9.2 mmol/L (8-16); CALCIUM 9.5 mg/dL (8.5-10.1); CARBON DIOXIDE 37.1 mmol/L (21.0-32.0); CREATININE - SERUM 1.3 mg/dL (0.6-1.3); MAGNESIUM - SERUM 2.5 mg/dL (1.8-2.4); PHOSPHOROUS 4.1 mg/dL (2.5-4.9); POTASSIUM - SERUM 4.3 mmol/L (3.5-5.1)
[2019-07-09 11:54] VITALS: BP 123/60
--- NOTE | 2019-07-09 14:29 | NUR ---
OT NOTE: (DOS 07/07/19) PT COMPLETED SIT TO STAND WITH CGA. PT COMPLETED ADL MOB WITH RW WITH CGA. PT COMPLETED FACE WASH WITH SETUP AT EOB. PT COMPLETED UE AROM EXS AT EOB. [phone] THANK YOU,JATINDER SALEH
--- NOTE | 2019-07-09 14:37 | NUR ---
I have reviewed this patient and I concur with the Shift Assessment completed by the Licensed Practical Nurse today this shift.
[2019-07-09 16:07] VITALS: BP 115/64
--- NOTE | 2019-07-09 19:15 | NUR ---
PATIENT ALERT AND ORIENTED WHEN ENTERING THE ROOM. OBTAINED WEIGHT, CURRENTLY 264.2 ON STANDING SCALE. PATIENT HAS RIGHT FOREARM IV THAT IS SALINE LOCKED. FLUSHED AND IS PATENT. PATIENT WEARING 5L HF CANNULA AT THIS TIME. HAS GENERALIZED EDEMA IN ALL FOUR EXTREMETIES. BILATERAL LOWER EXTREMETIES HAVE DRESSINGS THAT WERE CHANGED 07/09/19. PATIENT DENIES PAIN OR DISCOMFORT AT THIS TIME. WALKER IN ROOM FOR ASSITANCE. CALL LIGHT IN REACH OF PATIENT. CPOC.
[2019-07-09 20:00] VITALS: BP 125/62
--- NOTE | 2019-07-09 21:00 | NUR ---
DIABETIC SNACK PROVIDED. PATIENT ATE BBQ CHIPS.
[2019-07-10] VITALS: BP 126/58
--- NOTE | 2019-07-10 01:21 | NUR ---
RESTING WITH NO SIGNS OR SYMPTOMS OF DISTRESS AT THIS TIME. CPOC.
[2019-07-10 04:00] VITALS: BP 123/59
[2019-07-10 05:12] LABS: BASOPHILS 0 % (0-2); EOSINOPHILS 0.1 % (0-7); HEMATOCRIT 39.4 % (42.0-54.0); HEMOGLOBIN 11.8 g/dL (13.5-17.5); IMMATURE GRANULOCYTES 0.5 % (0-5); LYMPHOCYTES 6.9 % (15-50); MCH 29.2 pg (26.0-34.0); MCHC 29.9 g/dL (31.0-37.0); MCV 97.5 fL (80.0-100.0); MEAN PLATELET VOLUME 10.6 fL (7.4-10.4); MONOCYTES 2.6 % (2-11); NEUTROPHILS 89.9 % (40-80); PLATELET COUNT 256 10x3/uL (130-400); RBC 4.04 10x6/uL (4.20-6.10); RDW 14.2 % (11.5-14.5); WBC 14.4 10x3/uL (4.8-10.8)
[2019-07-10 05:26] LABS: ANION GAP 6.1 mmol/L (8-16); CALCIUM 9.1 mg/dL (8.5-10.1); CARBON DIOXIDE 38.2 mmol/L (21.0-32.0); CREATININE - SERUM 1.4 mg/dL (0.6-1.3); MAGNESIUM - SERUM 2.4 mg/dL (1.8-2.4); PHOSPHOROUS 4.2 mg/dL (2.5-4.9); POTASSIUM - SERUM 4.3 mmol/L (3.5-5.1)
[2019-07-10 08:40] VITALS: BP 118/62
--- NOTE | 2019-07-10 09:52 | MORECARE ---
CASE MANAGEMENT DISCHARGE SUMMARY PATIENT: CONNIE MCCRAY UNIT: [id number] ADM DATE: 06/29/19 AGE: 74 : 43 SEX: M ROOM/BED: D.2213 AUTHOR: MARK,DOC PHYSICIAN: REFERRING PHYSICIAN: ARIELA CHARLES DO DATE OF SERVICE: 07/10/19 Discharge Plan Patient Name: CONNIE MCCRAY Facility: [facility]:[place] : 1945 Planned Disposition: Home Anticipated Discharge Date: Discharge Date: Expected LOS: Initial Reviewer: [email or web address] Initial Review Date: 06/29/2019 Generated: 07/10/19 10:52 am DCP- Discharge Planning Updated by [email or web address]: Julita Elizabeth on 07/10/19 8:[address] CLINICAL SENT [facility] [place] FOR A TRILIOGY DCP- Discharge Planning Updated by [email or web address]: Julita Elizabeth on 07/03/19 12:[address] Patient Name: CONNIE MCCRAY Admission Status: ER Accout number: [id number] Admission Date: 06-29-2019 : 1945 Admission Diagnosis: Attending: ARIELA CHARLES Current LOS: 4 Anticipated DC Date: Planned Disposition: Home Primary Insurance: [facility] MEDICARE SOLUTIONS Discharge Planning Comments: CM met with patient to complete initial dc planning assessment. CM educated patient on the CM role and verbal consent given by patient to complete assessment. Patient lives at home with his spouse where he was independent with his care. At discharge patient plans to return home and feels this is a safe discharge. CM discussed availability of home health, rehab services, and medical equipment. He has home O2, portable, Concentrator, nebulizer, walker, shower chair and an electric wheelchair at home. KAIT with [facility]. Patient denied known discharge needs at this time. CM will continue to follow and will assist as needed with dc plans/needs. Polysomnographic Tech: Julita Elizabeth DCPIA - Discharge Planning Initial Assessment Updated by [email or web address]: Julita Elizabeth on 07/03/19 1:39 pm * Is the patient Alert and Oriented? Yes * How many steps to enter\exit or inside your home? * PCP PEREZ * Pharmacy [facility] * Preadmission Environment Home with Family * ADLs Independent * Equipment Nebulizer Oxygen Rolling Walker * List name and contact numbers for known caregivers / representatives who currently or will assist patient after discharge: DK (SPOUSE) [phone] * Verbal permission to speak to the caregivers and representatives has been obtained from the patient. N/A * Community resources currently utilized Other * Please name any agencies selected above. HOUSE CALL * Additional services required to return to the preadmission environment? Yes * Can the patient safely return to the preadmission environment? Yes * Has this patient been hospitalized within the prior 30 days at any hospital? No External Providers External Provider: Jennifer Next Contact Date: Service Request Date: Service Type: Resolution: Reviewer: Comments: Coverage Notice Reviewer: [email or web address] Crissy Elizabeth Notice Issued Date-Time: 07/03/2019 13:20 Notice Type: Patient Choice Letter Notice Delivered To: Patient Relationship to Patient: Mother'S Helper Name: Delivery Method: HAND - Hand Delivered Tuyet Days: Prior Verbal Notification: Recipient Understood Notice: Yes Recipient Signature: Yes Med Rec Note Co-signed by Attending: Coverage Notice Comment: kait with candie Guajardo DP export: 07/03/19 12:56 p Patient Name: CONNIE MCCRAY Page 21232 at 0952 All edits/amendments must be made on the electronic document DICTATION DATE: 07/10/19951 SUPERVISOR ROVING: CINDY 07/10/19951 RPT#: [id number] DC DATE: STATUS: ADM IN [facility] [address] [place] [address] END OF REPORT
--- NOTE | 2019-07-10 11:09 | MORECARE ---
CASE MANAGEMENT DISCHARGE SUMMARY PATIENT: CONNIE MCCRAY UNIT: [id number] ADM DATE: 06/29/19 AGE: 74 : 43 SEX: M ROOM/BED: D.2213 AUTHOR: GEN FLORES PHYSICIAN: REFERRING PHYSICIAN: ARIELA CHARLES DO DATE OF SERVICE: 07/10/19 Discharge Plan Patient Name: CONNIE MCCRAY Facility: [facility]:[place] : 1945 Planned Disposition: Home Anticipated Discharge Date: Discharge Date: Expected LOS: Initial Reviewer: [email or web address] Initial Review Date: 06/29/2019 Generated: 07/10/19 12:09 pm Comments DCP- Discharge Planning Updated by [email or web address]: Julita Elizabeth on 07/10/19 10:[address] everything has been submitted for his triliogy by magno Rausch DCP- Discharge Planning Updated by [email or web address]: Julita Elizabeth on 07/10/19 8:[address] CLINICAL SENT [facility] FOR A TRILIOGY DCP- Discharge Planning Updated by [id number]: Julita Elizabeth on 07/03/19 12:[address] Patient Name: CONNIE MCCRAY Admission Status: ER Accout number: [id number] Admission Date: 06-29-2019 : 1945 Admission Diagnosis: Attending: ARIELA CHARLES Current LOS: 4 Anticipated DC Date: Planned Disposition: Home Primary Insurance: [facility] MEDICARE SOLUTIONS Discharge Planning Comments: CM met with patient to complete initial dc planning assessment. CM educated patient on the CM role and verbal consent given by patient to complete assessment. Patient lives at home with his spouse where he was independent with his care. At discharge patient plans to return home and feels this is a safe discharge. CM discussed availability of home health, rehab services, and medical equipment. He has home O2, portable, Concentrator, nebulizer, walker, shower chair and an electric wheelchair at home. KAIT with [facility]. Patient denied known discharge needs at this time. CM will continue to follow and will assist as needed with dc plans/needs. Biologist Aide: Julita Elizabeth DCPIA - Discharge Planning Initial Assessment Updated by [email or web address]: Julita Elizabeth on 07/03/19 1:39 pm * Is the patient Alert and Oriented? Yes * How many steps to enter\exit or inside your home? * PCP ANA * Pharmacy [facility] * Preadmission Environment Home with Family * ADLs Independent * Equipment Nebulizer Oxygen Rolling Walker * List name and contact numbers for known caregivers / representatives who currently or will assist patient after discharge: DK (SPOUSE) [phone] * Verbal permission to speak to the caregivers and representatives has been obtained from the patient. N/A * Community resources currently utilized Other * Please name any agencies selected above. HOUSE CALL * Additional services required to return to the preadmission environment? Yes * Can the patient safely return to the preadmission environment? Yes * Has this patient been hospitalized within the prior 30 days at any hospital? No Coverage Notice Reviewer: [email or web address] - Julita Elizabeth Notice Issued Date-Time: 07/03/2019 13:20 Notice Type: Patient Choice Letter Notice Delivered To: Patient Relationship to Patient: Staff Consultant Name: Delivery Method: HAND - Hand Delivered Tuyet Days: Prior Verbal Notification: Recipient Understood Notice: Yes Recipient Signature: Yes Med Rec Note Co-signed by Attending: Coverage Notice Comment: kait with shalom Guajardo DP export: 07/10/19 8:52 am Patient Name: CONNIE MCCRAY Page [phone] at 1109 All edits/amendments must be made on the electronic document DICTATION DATE: 07/10/19 1109 HIDE MEASURING MACHINE OPERATOR: CINDY 07/10/19 1109 RPT#: [id number] DC DATE: STATUS: ADM IN [place] [address] [place] [address] END OF REPORT
--- NOTE | 2019-07-10 11:26 | NUR ---
I have reviewed this patient and I concur with the Shift Assessment completed by the Licensed Practical Nurse today this shift.
[2019-07-10 12:12] VITALS: BP 112/53
--- NOTE | 2019-07-10 12:40 | NUR ---
OT NOTE: PT DOING WELL BUT FRUSTRATED ABOUT HIS BED BEING BROKEN. ATTEMPTED TO MAKE SURE EVERYTHING WAS STILL PLUGGED IN HOWEVER, THE BED CONTINUED NOT TO MOVE. ASSISTED PT WITH DONNING GOWN WITH SET UP; AMB TO BATHROOM TO PERFORM TOILETING WITH WALKER AND CGA; AMB TO SINK WITH MIN ASSIST TO PERFORM GROOMING TASKS; AMB INTO HALLWAY WITH WALKER X MIN ASSIST TO IMPROVE STRENGTH AND FUNCTIONAL ENDURANCE. ANABELL SWANN, OTR/L [phone]
[2019-07-10 16:01] VITALS: BP 113/63
[2019-07-10 20:00] VITALS: BP 112/56
[2019-07-11] VITALS: BP 118/59
--- NOTE | 2019-07-11 00:36 | NUR ---
REC'D. CHGE OF SHIFT WALKING ROUNDS IN BATHROOM ASSISTED OUT WITH WALKER AND MODERATE ASSIST. ACEWRAP DRY AND INTACT TO LOWER EXT. X2. MINIMAL SWELLING TO LOWER EXT X2.FEET PINK AND WARM PEDAL PULSES PRESENT.C/O SOME DECREASE IN SENSATION LOWER EXT.CONTACT ISOLATION REMAINS IN PROGRESS.WILL CONTINUE TO MONITOR NEUROVASCULAR STATUS AND FOLLOW CURRENT PLAN OF CARE.
[2019-07-11 04:00] VITALS: BP 107/56
[2019-07-11 07:20] LABS: MAGNESIUM - SERUM 2.4 mg/dL (1.8-2.4); PHOSPHOROUS 4.2 mg/dL (2.5-4.9)
--- NOTE | 2019-07-11 07:27 | NUR ---
ALERT AND ORIENTED. LUNGS CLEAR BILATERALLY. HEART SOUNDS S1 AND S2 HEARD IN ALL MCCLURE. BOWEL SOUNDS ACTIVE X 4. DRSG TO LLE C/D/I. IV TO RFA PATENT WITHOUT REDNESS. O2 IN PLACE AT 5L NC. DENIES NEEDS. BED LOW. CALL CORTES AND PERSONAL ITEMS IN REACH. WILL CONTINUE TO MONITOR.
[2019-07-11 09:11] VITALS: BP 118/53
[2019-07-11 09:23] LABS: ALBUMIN 3.1 g/dL (3.4-5.0); ANION GAP 15.8 mmol/L (8-16); BILIRUBIN - TOTAL 0.52 mg/dL (0.2-1.3); CALCIUM 8.7 mg/dL (8.5-10.1); CARBON DIOXIDE 30.2 mmol/L (21.0-32.0); CREATININE - SERUM 1.2 mg/dL (0.6-1.3); PROTEIN - SERUM 6.9 g/dL (6.4-8.2)
[2019-07-11 10:14] LABS: BASOPHILS 0.1 % (0-2); EOSINOPHILS 1.4 % (0-7); HEMATOCRIT 41.4 % (42.0-54.0); HEMOGLOBIN 12.7 g/dL (13.5-17.5); IMMATURE GRANULOCYTES 0.5 % (0-5); LYMPHOCYTES 22.9 % (15-50); MCH 30.4 pg (26.0-34.0); MCHC 30.7 g/dL (31.0-37.0); MEAN PLATELET VOLUME 11.6 fL (7.4-10.4); MONOCYTES 7.1 % (2-11); RBC 4.18 10x6/uL (4.20-6.10); RDW 14.4 % (11.5-14.5)
[2019-07-11 10:30] LABS: PLATELET COUNT 173 10x3/uL (130-400)
[2019-07-11 13:31] VITALS: BP 112/58
[2019-07-11] MEDS ORDERED: TESSALON PERLE100 MG PO (13:31)
[2019-07-11] MEDS ORDERED: FLORAJEN3 CAPS460 MG PO (13:31)
[2019-07-11] MEDS ORDERED: PREDNISONE10 MG PO (13:32)
--- NOTE | 2019-07-11 13:57 | MORECARE ---
CASE MANAGEMENT DISCHARGE SUMMARY PATIENT: CONNIE MCCRAY UNIT: [id number] ADM DATE: 06/29/19 AGE: 74 : 43 SEX: M ROOM/BED: D.2213 AUTHOR: GEN FLORES PHYSICIAN: REFERRING PHYSICIAN: ARIELA CHARLES DO DATE OF SERVICE: 07/11/19 Discharge Plan Patient Name: CONNIE MCCRAY Facility: [facility]:[place] : 1945 Planned Disposition: Home Anticipated Discharge Date: Discharge Date: Expected LOS: Initial Reviewer: [email or web address] Initial Review Date: 06/29/2019 Generated: 07/11/19 2:57 pm Comments DCP- Discharge Planning Updated by [email or web address]: Julita Elizabeth on 07/11/19 12:[address] TRILIOGY HAS BEEN APPROVED AND WILL BE DELIVERED TO THE HOSPITAL TODAY, HE WILL TRY IT OVERNIGHT AND WILL DISCHARGE TOMORROW DCP- Discharge Planning Updated by [id number]: Julita Elizabeth on 07/10/19 10:[address] everything has been submitted for his triliogy by magno Rausch DCP- Discharge Planning Updated by [id number]: Julita Elizabeth on 07/10/19 8:[address] CLINICAL SENT [facility] FOR A TRILIOGY DCP- Discharge Planning Updated by [email or web address]: Julita Elizabeth on 07/03/19 12:[address] Patient Name: CONNIE MCCRAY Admission Status: ER Accout number: [id number] Admission Date: 06-29-2019 : 1945 Admission Diagnosis: Attending: ARIELA CHARLES Current LOS: 4 Anticipated DC Date: Planned Disposition: Home Primary Insurance: [facility] MEDICARE SOLUTIONS Discharge Planning Comments: CM met with patient to complete initial dc planning assessment. CM educated patient on the CM role and verbal consent given by patient to complete assessment. Patient lives at home with his spouse where he was independent with his care. At discharge patient plans to return home and feels this is a safe discharge. CM discussed availability of home health, rehab services, and medical equipment. He has home O2, portable, Concentrator, nebulizer, walker, shower chair and an electric wheelchair at home. KAIT with [facility]. Patient denied known discharge needs at this time. CM will continue to follow and will assist as needed with dc plans/needs. Rpg Developer: Julita Elizabeth DCPIA - Discharge Planning Initial Assessment Updated by [email or web address]: Julita Elizabeth on 07/03/19 1:39 pm * Is the patient Alert and Oriented? Yes * How many steps to enter\exit or inside your home? * PCP PEREZ * Pharmacy [facility] * Preadmission Environment Home with Family * ADLs Independent * Equipment Nebulizer Oxygen Rolling Walker * List name and contact numbers for known caregivers / representatives who currently or will assist patient after discharge: DK (SPOUSE) [phone] * Verbal permission to speak to the caregivers and representatives has been obtained from the patient. N/A * Community resources currently utilized Other * Please name any agencies selected above. HOUSE CALL * Additional services required to return to the preadmission environment? Yes * Can the patient safely return to the preadmission environment? Yes * Has this patient been hospitalized within the prior 30 days at any hospital? No Coverage Notice Reviewer: [id number] - Julita Elizabeth Notice Issued Date-Time: 07/03/2019 13:20 Notice Type: Patient Choice Letter Notice Delivered To: Patient Relationship to Patient: Mechanic Welder Truck Driver Name: Delivery Method: HAND - Hand Delivered Tuyet Days: Prior Verbal Notification: Recipient Understood Notice: Yes Recipient Signature: Yes Med Rec Note Co-signed by Attending: Coverage Notice Comment: kait with shalom Last DP export: 07/10/19 10:09 am Patient Name: CONNIE MCCRAY Page [phone] at 1357 All edits/amendments must be made on the electronic document DICTATION DATE: 07/11/19 1357 FLUSH TESTER: CINDY 07/11/19 1357 RPT#: [id number] DC DATE: STATUS: [facility] [address] [place] [address] END OF REPORT
--- NOTE | 2019-07-11 17:50 | NUR ---
OT NOTE: (AM SESSION) PT COMPLETED SUPINE TO SIT WITH SBA.PT COMPLETED SIT TO STAND WITH CGA.PT COMPLETED ADL MOB WITH RW TO BATHROOM WITH CGA. PT COMPLETED TOILETING TASKS WITH CGA. PT REQUIRED MIN A WITH TOILET HYGIENE. PT COMPLETED HAND WASH AT SINK LEVEL WITH SBA. PT BED MOVES WITH BRAKES ON. NURSING NOTIFIED. (PM SESSION) PT COMPLETED EOB SITTING BALANCE WITH SPV. PT COMPLETED SIT TO STAND WITH CGA. PT COMPLETED SIT TO SUPINE WITH SBA. PT STATED HE IS GOING HOME TOMORROW. [phone] ; [phone] THANK YOU,JATINDER SALEH
[2019-07-11 18:08] VITALS: BP 106/64
[2019-07-11 20:00] VITALS: BP 127/39
--- NOTE | 2019-07-11 20:30 | NUR ---
SITTING UP ON SIDE OF BED. ASSISTED UP TO BR. REPORTS FREQUENT BM'S. AMB WITH WALKER WITH STANDBY ASSIST. RESP IRREG. SOB WITH MIN EXERTION. O2 @ 5L/HFC. EDEMA NOTED TO BLE. DRSG TO BLE ARE C/D/I. SALINE LOCK NOTED TO RT FOREARM. 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 DANIEL ALARM ON FOR PT SAFETY. CL IN REACH.
[2019-07-12] VITALS: BP 138/66
[2019-07-12 04:00] VITALS: BP 132/78
--- NOTE | 2019-07-12 04:08 | NUR ---
CHRISTINE SLEPT MUCH THIS SHIFT. SITTING UP ON SIDE OF BED. RESP IRREG. CPAP IN USE. NO DISTRESS. CL IN REACH.
[2019-07-12 05:53] LABS: MAGNESIUM - SERUM 2.4 mg/dL (1.8-2.4); PHOSPHOROUS 3.3 mg/dL (2.5-4.9)
--- NOTE | 2019-07-12 07:31 | NUR ---
ALERT AND ORIENTED. LUNGS CLEAR BILATERALLY. HEART SOUNDS S1 AND S2 HEARD IN ALL MCCLURE.BOWEL SOUNDS ACTIVE X 4. DRSGS TO BLE C/D/I. IV TO RFA PATENT WITHOUT REDNESS. DENIES PAIN. DENIES NEEDS. BED LOW. FALL PRECAUTIONS IN PLACE. CALL CORTES AND PERSONAL ITEMS IN REACH. WILL CONTINUE TO MONITOR.
--- NOTE | 2019-07-12 08:46 | NUR ---
PATIENT O2 SAT 98% ON 4L. STATES WEARS 2.5 TO 3 LITERS AT HOME. DECREASED O2 TO 3L. STILL SAT 97%. DECREASED TO 2.5L. PATIENT SAT 95% ON 2L AND STAYING AT 95%. WILL CONTINUE TO MONITOR.
[2019-07-12 09:53] VITALS: BP 127/64
--- NOTE | 2019-07-12 10:19 | MORECARE ---
CASE MANAGEMENT DISCHARGE SUMMARY PATIENT: CONNIE MCCRAY UNIT: [id number] ADM DATE: 06/29/19 AGE: 74 : 41 SEX: M ROOM/BED: D.2213 AUTHOR: GEN FLORES PHYSICIAN: REFERRING PHYSICIAN: ARIELA CHARLES DO DATE OF SERVICE: 07/12/19 Discharge Plan Patient Name: CONNIE MCCRAY Facility: [facility]:[place] : 1945 Planned Disposition: Home Anticipated Discharge Date: Discharge Date: Expected LOS: Initial Reviewer: [email or web address] Initial Review Date: 06/29/2019 Generated: 07/12/19 11:18 am Comments DCP- Discharge Planning Updated by [id number]: Julita Elizabeth on 07/11/19 12:[address] TRILIOGY HAS BEEN APPROVED AND WILL BE DELIVERED TO THE HOSPITAL TODAY, HE WILL TRY IT OVERNIGHT AND WILL DISCHARGE TOMORROW DCP- Discharge Planning Updated by [email or web address]: Julita Elizabeth on 07/10/19 10:[address] everything has been submitted for his triliogy by magno Rausch DCP- Discharge Planning Updated by [email or web address]: Julita Elizabeth on 07/10/19 8:[address] CLINICAL SENT SHALOM FOR A TRILIOGY DCP- Discharge Planning Updated by [email or web address]: Julita Elizabeth on 07/03/19 12:[address] Patient Name: CONNIE MCCRAY Admission Status: ER Accout number: [id number] Admission Date: 06-29-2019 : 1945 Admission Diagnosis: Attending: ARIELA CHARLES Current LOS: 4 Anticipated DC Date: Planned Disposition: Home Primary Insurance: [facility] MEDICARE SOLUTIONS Discharge Planning Comments: CM met with patient to complete initial dc planning assessment. CM educated patient on the CM role and verbal consent given by patient to complete assessment. Patient lives at home with his spouse where he was independent with his care. At discharge patient plans to return home and feels this is a safe discharge. CM discussed availability of home health, rehab services, and medical equipment. He has home O2, portable, Concentrator, nebulizer, walker, shower chair and an electric wheelchair at home. KAIT with Shalom. Patient denied known discharge needs at this time. CM will continue to follow and will assist as needed with dc plans/needs. Sap Portal Consultant: Julita Elizabeth DCPIA - Discharge Planning Initial Assessment Updated by [id number]: Julita Elizabeth on 07/03/19 1:39 pm * Is the patient Alert and Oriented? Yes * How many steps to enter\exit or inside your home? * PCP PEREZ * Pharmacy [facility] * Preadmission Environment Home with Family * ADLs Independent * Equipment Nebulizer Oxygen Rolling Walker * List name and contact numbers for known caregivers / representatives who currently or will assist patient after discharge: DK (SPOUSE) [phone] * Verbal permission to speak to the caregivers and representatives has been obtained from the patient. N/A * Community resources currently utilized Other * Please name any agencies selected above. HOUSE CALL * Additional services required to return to the preadmission environment? Yes * Can the patient safely return to the preadmission environment? Yes * Has this patient been hospitalized within the prior 30 days at any hospital? No Coverage Notice Reviewer: [id number] Crissy Elizabeth Notice Issued Date-Time: 07/03/2019 13:20 Notice Type: Patient Choice Letter Notice Delivered To: Patient Relationship to Patient: Maxillofacial Pathology Name: Delivery Method: HAND - Hand Delivered Tuyet Days: Prior Verbal Notification: Recipient Understood Notice: Yes Recipient Signature: Yes Med Rec Note Co-signed by Attending: Coverage Notice Comment: kait with shalom sera 07/12/19 @ 9:50 Reviewer: [id number] Crissy Elizabeth Notice Issued Date-Time: 07/12/2019 9:50 Notice Type: IM Discharge Notice Notice Delivered To: Patient Relationship to Patient: Maxillofacial Pathology Name: Delivery Method: HAND - Hand Delivered Tuyet Days: Prior Verbal Notification: Recipient Understood Notice: Yes Recipient Signature: Yes Med Rec Note Co-signed by Attending: Coverage Notice Comment: Last DP export: 07/11/19 12:57 pm Patient Name: CONNIE MCCRAY Page [id number] at 1019 All edits/amendments must be made on the electronic document DICTATION DATE: 07/12/19 1018 ROCKET MOTOR TESTER: CINDY 07/12/19 1018 RPT#: [id number] DC DATE: STATUS: ADM IN [facility] [address] [place] [address] END OF REPORT
[2019-07-12 10:47] LABS: ALBUMIN 3.3 g/dL (3.4-5.0); ANION GAP 17.1 mmol/L (8-16); BILIRUBIN - TOTAL 0.42 mg/dL (0.2-1.3); CALCIUM 9.2 mg/dL (8.5-10.1); CARBON DIOXIDE 30.9 mmol/L (21.0-32.0); PROTEIN - SERUM 6.9 g/dL (6.4-8.2)
[2019-07-12 11:01] LABS: CREATININE - SERUM 1.2 mg/dL (0.6-1.3)
[2019-07-12 11:14] LABS: BASOPHILS 0 % (0-2); EOSINOPHILS 0.8 % (0-7); HEMATOCRIT 39.8 % (42.0-54.0); HEMOGLOBIN 12.2 g/dL (13.5-17.5); IMMATURE GRANULOCYTES 0.3 % (0-5); LYMPHOCYTES 17.8 % (15-50); MCH 29.8 pg (26.0-34.0); MCHC 30.7 g/dL (31.0-37.0); MCV 97.3 fL (80.0-100.0); NEUTROPHILS 74.1 % (40-80); RBC 4.09 10x6/uL (4.20-6.10); RDW 14.3 % (11.5-14.5); WBC 14.6 10x3/uL (4.8-10.8)
[2019-07-12 11:17] LABS: PLATELET COUNT 253 10x3/uL (130-400)
--- NOTE | 2019-07-12 11:24 | NUR ---
DISCHARGE EDUCATION PROVIDED BOTH WRITTEN AND VERBAL TO PATIENT AND FAMILY AT BEDSIDE. VERBALIZED UNDERSTANDING. DENIES FURTHER QUESTIONS. IV REMOVED FROM [facility]FA WITH TIP INTACT. EXTRA SUPPLIES SENT HOME WITH PATIENT FOR DRSG CHANGES. HOME HEALTH TO PERFORM DRSG CHANGES AT HOME AND TO ASSIST WITH TRILOGY. PATIENT DISCHARGED HOME WITH ALL BELONGINGS.
--- NOTE | 2019-07-12 12:01 | MORECARE ---
CASE MANAGEMENT DISCHARGE SUMMARY PATIENT: CONNIE MCCRAY UNIT: [id number] ADM DATE: 06/29/19 AGE: 74 : 43 SEX: M ROOM/BED: D.2213 AUTHOR: GEN FLORES PHYSICIAN: REFERRING PHYSICIAN: ARIELA CHARLES DO DATE OF SERVICE: 07/12/19 Discharge Plan Patient Name: CONNIE MCCRAY Facility: [facility]:[place] : 1945 Planned Disposition: Home Anticipated Discharge Date: Discharge Date: 07/12/2019 Expected LOS: Initial Reviewer: [id number] Initial Review Date: 06/29/2019 Generated: 07/12/19 1:01 pm Comments DCP- Discharge Planning Updated by [email or web address]: Julita Elizabeth on 07/12/19 10:[address] LATE ENTRY: PATIENT IS DISCHARGING TODAY. IMM SERVED AND EXPLAINED. HE WILL BE DISCHARGING HOME WITH HIS TRILIOGY AND [facility]. I HAVE CONTACTED NOLVIA WITH [facility] TO LET HER KNOW . DCP- Discharge Planning Updated by [email or web address]: Julita Elizabeth on 07/11/19 12:[address] TRILIOGY HAS BEEN APPROVED AND WILL BE DELIVERED TO THE HOSPITAL TODAY, HE WILL TRY IT OVERNIGHT AND WILL DISCHARGE TOMORROW DCP- Discharge Planning Updated by [id number]: Julita Elizabeth on 07/10/19 10:[address] everything has been submitted for his triliogy by magno Rausch DCP- Discharge Planning Updated by [email or web address]: Julita Elizabeth on 07/10/19 8:[address] CLINICAL SENT SHALOM FOR A TRILIOGY DCP- Discharge Planning Updated by [id number]: Julita Elizabeth on 07/03/19 12:[address] Patient Name: CONNIE MCCRAY Admission Status: ER Accout number: [id number] Admission Date: 06-29-2019 : 1945 Admission Diagnosis: Attending: ARIELA CHARLES Current LOS: 4 Anticipated DC Date: Planned Disposition: Home Primary Insurance: [facility] MEDICARE SOLUTIONS Discharge Planning Comments: CM met with patient to complete initial dc planning assessment. CM educated patient on the CM role and verbal consent given by patient to complete assessment. Patient lives at home with his spouse where he was independent with his care. At discharge patient plans to return home and feels this is a safe discharge. CM discussed availability of home health, rehab services, and medical equipment. He has home O2, portable, Concentrator, nebulizer, walker, shower chair and an electric wheelchair at home. KAIT with Shalom. Patient denied known discharge needs at this time. CM will continue to follow and will assist as needed with dc plans/needs. Testboard Operator: Julita Elizabeth DCPIA - Discharge Planning Initial Assessment Updated by [id number]: Julita Elizabeth on 07/03/19 1:39 pm * Is the patient Alert and Oriented? Yes * How many steps to enter\exit or inside your home? * PCP ANA * Pharmacy [facility] * Preadmission Environment Home with Family * ADLs Independent * Equipment Nebulizer Oxygen Rolling Walker * List name and contact numbers for known caregivers / representatives who currently or will assist patient after discharge: DK (SPOUSE) [phone] * Verbal permission to speak to the caregivers and representatives has been obtained from the patient. N/A * Community resources currently utilized Other * Please name any agencies selected above. HOUSE CALL * Additional services required to return to the preadmission environment? Yes * Can the patient safely return to the preadmission environment? Yes * Has this patient been hospitalized within the prior 30 days at any hospital? No External Providers External Provider: [facility] Next Contact Date: Service Request Date: Service Type: Resolution: Reviewer: Comments: Coverage Notice Reviewer: [id number] Crissy Elizabeth Notice Issued Date-Time: 07/03/2019 13:20 Notice Type: Patient Choice Letter Notice Delivered To: Patient Relationship to Patient: Shell Grader Name: Delivery Method: HAND - Hand Delivered Tuyet Days: Prior Verbal Notification: Recipient Understood Notice: Yes Recipient Signature: Yes Med Rec Note Co-signed by Attending: Coverage Notice Comment: kait with shalom zamora 07/12/19 @ 9:50 Reviewer: [id number] Crissy Elizabeth Notice Issued Date-Time: 07/12/2019 9:50 Notice Type: IM Discharge Notice Notice Delivered To: Patient Relationship to Patient: Shell Grader Name: Delivery Method: HAND - Hand Delivered Tuyet Days: Prior Verbal Notification: Recipient Understood Notice: Yes Recipient Signature: Yes Med Rec Note Co-signed by Attending: Coverage Notice Comment: Last DP export: 07/12/19 9:19 am Patient Name: CONNIE MCCRAY Page [id number] at 1201 All edits/amendments must be made on the electronic document DICTATION DATE: 07/12/19 1201 CHLORINATOR OPERATOR: CINDY 07/12/19 1201 RPT#: [id number] DC DATE:07/12/19 STATUS: DIS IN [facility] [address] [place] [address] END OF REPORT
--- NOTE | 2019-07-13 12:32 | MORECARE ---
CASE MANAGEMENT DISCHARGE SUMMARY PATIENT: CONNIE MCCRAY UNIT: [id number] ADM DATE: 06/29/19 AGE: 74 : 43 SEX: M ROOM/BED: D.2213 AUTHOR: GEN FLORES PHYSICIAN: REFERRING PHYSICIAN: ARIELA CHARLES DO DATE OF SERVICE: 07/13/19 Discharge Plan Patient Name: CONNIE MCCRAY Facility: [facility]:[place] : 1945 Planned Disposition: Home Anticipated Discharge Date: Discharge Date: 07/12/2019 Expected LOS: 0 Initial Reviewer: [id number] Initial Review Date: 06/29/2019 Generated: 07/13/19 1:31 pm Comments DCP- Discharge Planning Updated by [email or web address]: Julita Elizabeth on 07/12/19 10:[address] LATE ENTRY: PATIENT IS DISCHARGING TODAY. IMM SERVED AND EXPLAINED. HE WILL BE DISCHARGING HOME WITH HIS TRILIOGY AND [facility]. I HAVE CONTACTED NOLVIA WITH [facility] TO LET HER KNOW . DCP- Discharge Planning Updated by [email or web address]: Julita Elizabeth on 07/11/19 12:[address] TRILIOGY HAS BEEN APPROVED AND WILL BE DELIVERED TO THE HOSPITAL TODAY, HE WILL TRY IT OVERNIGHT AND WILL DISCHARGE TOMORROW DCP- Discharge Planning Updated by [email or web address]: Julita Elizabeth on 07/10/19 10:[address] everything has been submitted for his triliogy by magno Rausch DCP- Discharge Planning Updated by [id number]: Julita Elizabeth on 07/10/19 8:[address] CLINICAL SENT SHALOM FOR A TRILIOGY DCP- Discharge Planning Updated by [email or web address]: Julita Elizabeth on 07/03/19 12:[address] Patient Name: CONNIE MCCRAY Admission Status: ER Accout number: [id number] Admission Date: 06-29-2019 : 1945 Admission Diagnosis: Attending: ARIELA CHARLES Current LOS: 4 Anticipated DC Date: Planned Disposition: Home Primary Insurance: [facility] MEDICARE SOLUTIONS Discharge Planning Comments: CM met with patient to complete initial dc planning assessment. CM educated patient on the CM role and verbal consent given by patient to complete assessment. Patient lives at home with his spouse where he was independent with his care. At discharge patient plans to return home and feels this is a safe discharge. CM discussed availability of home health, rehab services, and medical equipment. He has home O2, portable, Concentrator, nebulizer, walker, shower chair and an electric wheelchair at home. KAIT with Shalom. Patient denied known discharge needs at this time. CM will continue to follow and will assist as needed with dc plans/needs. Coal Hauler: Julita Elizabeth DCPIA - Discharge Planning Initial Assessment Updated by [email or web address]: Julita Elizabeth on 07/03/19 1:39 pm * Is the patient Alert and Oriented? Yes * How many steps to enter\exit or inside your home? * PCP ANA * Pharmacy [facility] * Preadmission Environment Home with Family * ADLs Independent * Equipment Nebulizer Oxygen Rolling Walker * List name and contact numbers for known caregivers / representatives who currently or will assist patient after discharge: DK (SPOUSE) [phone] * Verbal permission to speak to the caregivers and representatives has been obtained from the patient. N/A * Community resources currently utilized Other * Please name any agencies selected above. HOUSE CALL * Additional services required to return to the preadmission environment? Yes * Can the patient safely return to the preadmission environment? Yes * Has this patient been hospitalized within the prior 30 days at any hospital? No Coverage Notice Reviewer: [id number] Crissy Elizabeth Notice Issued Date-Time: 07/03/2019 13:20 Notice Type: Patient Choice Letter Notice Delivered To: Patient Relationship to Patient: Mold Maker Plastic Molds Name: Delivery Method: HAND - Hand Delivered Tuyet Days: Prior Verbal Notification: Recipient Understood Notice: Yes Recipient Signature: Yes Med Rec Note Co-signed by Attending: Coverage Notice Comment: kait with shalom sera 07/12/19 @ 9:50 Reviewer: [id number] Crissy Elizabeth Notice Issued Date-Time: 07/12/2019 9:50 Notice Type: IM Discharge Notice Notice Delivered To: Patient Relationship to Patient: Mold Maker Plastic Molds Name: Delivery Method: HAND - Hand Delivered Tuyet Days: Prior Verbal Notification: Recipient Understood Notice: Yes Recipient Signature: Yes Med Rec Note Co-signed by Attending: Coverage Notice Comment: Last DP export: 07/12/19 11:01 am Patient Name: CONNIE MCCRAY Page 61689 at 1232 All edits/amendments must be made on the electronic document DICTATION DATE: 07/13/19 1231 CITRUS PEELER: CINDY 07/13/19 1231 RPT#: [id number] DC DATE:07/12/19 STATUS: DIS IN [facility] [address] [place] [address] END OF REPORT
== END 2019-07-12 11:37 | disposition home health service (06) | DRG 189 ==
LOC: D.ER 13:10 → D.MS 14:43
PROVIDERS: Emergency Medicine; Family Medicine; Internal Medicine Nephrology; Internal Medicine Pulmonary Disease; ADMIT Family Medicine; ATTEND Family Medicine
DX: J96.22 Acute and chronic respiratory failure with hypercapnia (principal); I50.33 Acute on chronic diastolic (congestive) heart failure; J18.9 Pneumonia, unspecified organism; L03.116 Cellulitis of left lower limb; L03.115 Cellulitis of right lower limb; E11.628 Type 2 diabetes mellitus with other skin complications; J44.9 Chronic obstructive pulmonary disease, unspecified; I87.8 Other specified disorders of veins; I11.0 Hypertensive heart disease with heart failure; E66.01 Morbid (severe) obesity due to excess calories; Z68.36 Body mass index [BMI] 36.0-36.9, adult; E03.9 Hypothyroidism, unspecified; E11.65 Type 2 diabetes mellitus with hyperglycemia; E11.40 Type 2 diabetes mellitus with diabetic neuropathy, unspecified; E11.51 Type 2 diabetes mellitus with diabetic peripheral angiopathy without gangrene; K21.9 Gastro-esophageal reflux disease without esophagitis; M19.90 Unspecified osteoarthritis, unspecified site; G25.81 Restless legs syndrome; E55.9 Vitamin D deficiency, unspecified; D64.9 Anemia, unspecified